=== PATIENT | female | born 1960 | race Caucasian/White ===

== ENCOUNTER 2016-10-12 14:55 | Emergency (ER) | payer MEDICAID ==
[~2016-10-12] VITALS: Ht 172.7 cm; Wt 71.7 kg
[~2016-10-12 14:55] MED LIST: ASPIRIN CHILDRE81 MG PO; ASPIRIN PO; DICLOFENAC 50MG50 MG PO; EC NAPROSYN500 MG PO; ESCITALOPRAM10 M1 PO; FLEXERIL10 MG PO; GABAPENTIN300 M1 PO; GABAPENTIN800 MG PO; LORTAB 5/500 501 TAB PO; LORTAB 7.5/3251 TAB PO; MEDROL 4MG. DOSE4 MG PO; NORCO 325 MG-51 TAB PO; OXYCODONE HYDRO1 TA1 PO; PEPCID20 MG PO; PRILOSEC40 MG PO; UNISOM25 MG PO; VALIUM 10MG TAB10 MG PO; VALIUM 5MG TABLE5 MG PO
--- NOTE | 2016-10-12 17:31 | Emergency Room Report ---
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 N Clinical Suspician of Infection? N Mental Status: 1 - Regular (Normal Baseline) Sepsis Risk:Possible Sepsis Risk Have you (or family members/close friends) recently traveled outside the [place]? N If Yes, where/when: Have you had exposure to infectious disease within the past month? N TB? Other? Specify: Patient complains of anxiety she states she is being weaned off her Valium by her family doctor and has anxiousness denies any pain denies any fevers or chills or nausea or vomiting states she has been on Valium since she's been 11 years old ALLERGIES Coded Allergies: No Known Allergies (11/23/15) Home Medications Active Scripts Cyclobenzaprine Hcl (Flexeril) 5 MG PO BID #60 TAB Prov: 09/06/16 Reported Medications ASPIRIN (Aspirin) 81 MG PO DAILY Diazepam (Valium 5MG) 5 MG PO QID Omeprazole (Prilosec 40mg Cap) 40 MG PO DAILY Escitalopram Oxalate 10 MG PO DAILY #30 Gabapentin (Gabapentin 800MG) 800 MG PO TID OXYCODONE HCL/ACETAMINOPHEN (Oxycodon-Acetaminophen 7.5-325) 1 TAB PO TID History Medical History General CAD? No Angina: Yes CA: No Hypertension? No Hyperlipidemia? No CHF? No DVT? No PE? No COPD? No Asthma? No Anemia? No GERD? Yes Gastric ulcers? No GI Bleed? No Hernia? No Thyroid Problems? No Hypothyroidism? No CVA? No Seizures? No Diabetes? No Insulin Dependent: No Insulin Pump: No Home FSBS? No Renal Insuffiency? No End Stage Renal Disease? No UTI? No Stones? No BPH? No GB Disease: No Nephritic Syndrome? No Asplenia? No Hepatitis? No Sickle Cell Disease? No Arthritis? Yes Migraines? No Cataracts? No Glaucoma? No MRSA? No HIV? No TB? No Anxiety? Yes Depression? Yes Cancer? No More? 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 Eyes: conjunctiva/corneas clear ENT: Mucous membranes moist. Neck: No jugular venous distention. Cardiac: regular rate and rhythm Lungs: Clear to auscultation bilaterally Abdomen: Nontender, Nondistended, positive bowel sounds, no rebound : No CVA tenderness Extremities: no edema Musculoskeletal: No chest wall tenderness Skin: No rashes or lesions to exposed skin. Neurologic: Alert. No gross focal deficits Psychiatric: Normal affect (Avery Goldberg MD) General Appearance normal appearance Respiratory Status No: respiratory distress. Cardiovascular normal exam Neurologic alert Medical Decision Making LABS/Meds/Orders Pt receiving controlled substance in ED? No Results/Orders Current Medication Orders Sig/Bro Start time Last Medication Dose Route Stop Time Status Admin Diazepam 5 MG .[NOW] 10/12 1745 CKDr PO Departure Departure Disposition DC Home or Self Care(routine) Clinical Impression Primary Impression: Anxiety Condition STABLE Referrals Comfort CARABALLO,Jorden Wiley (Family) Patient Instructions Anxiety Disorders Additional Instructions call family md for recheck ED Critical Care Critical Care No at 6125
[2016-10-12 18:43] VITALS: BP 142/69
== END 2016-10-12 18:45 | disposition home or self-care (01) ==
LOC: ER 14:55
DX: F41.8 Other specified anxiety disorders (principal)

== ENCOUNTER 2016-12-14 13:09 | Emergency (ER) | payer MEDICAID ==
[~2016-12-14] VITALS: Ht 172.7 cm; Wt 69.4 kg
--- OUTSIDE RECORDS SUMMARY | 2016-12-14 13:22 | External Medical Summary Rpt ---
Author Author , Organization [employer] Address Unknown Phone Unavailable Care Team Providers Care Cafeteria Assistant Name Role Phone ALLRAN MACARIO, ALLRAN Unavailable Unavailable JR MACARIO BELEAH BORA, BEINEKE Unavailable Unavailable BORA BESSON, BESSON Unavailable Unavailable BESSON GI, BESSON Unavailable Unavailable [facility] Unavailable [facility]available [facility], [facility] SILVA ALL, SILVA ALL Unavailable Unavailable [facility] Unavailable Unavailable SERVICE, [facility] Unavailable Unavailable SERVICE, [facility] Unavailable Unavailable [facility]TH[facility]ED[facility], [facility] Unavailable Unavailable [facility], [facility] Unavailable [facility]available [facility], [facility] & Unavailable Unavailable DUBILIER, [facility], [facility] SEBASTIAN ANTHONY, Unavailable Unavailable SEBASTIAN ANTHONY SEBASTIAN ANTHONY, Unavailable Unavailable SEBASTIAN ANTHONY [facility] Unavailable [place]available [place], [facility] [place] [facility] Unavailable Unavailable LLC, [facility] FRYMAN EUG, FRYMAN Unavailable Unavailable EUG JR MUKHERJEE FULLER, Unavailable Unavailable JR JR MATTI MUKHERJEE, Unavailable Unavailable JR MATTI MUKHERJEE COMFORT, COMFORT Unavailable Unavailable COMFORT RICARDO, COMFORT Unavailable Unavailable RICARDO COMFORT RICARDO, COMFORT Unavailable Unavailable RICARDO [facility], [facility] LEVY, LEVY Unavailable Unavailable LEVY RICARDO, LEVY Unavailable Unavailable RICARDO PREETHI RHO, PREETHI Unavailable Unavailable RHO [facility] Unavailable Unavailable INC, [facility] Unavailable Unavailable HOSPITAL P, [facility], Unavailable Unavailable [facility] CRISOSTOMO, CRISOSTOMO Unavailable Unavailable CRISOSTOMO TRA, CRISOSTOMO TRA Unavailable Unavailable WILBERTO LADD Unavailable Unavailable [facility] Un[facility] Unavailable [facility], [facility] Un[facility], [facility] Un[facility], [facility] DELIO DWI, DELIO DWI Unavailable Unavailable DELIO JR DWI, DELIO Unavailable Unavailable JR DWI ALMONTE OUSMANE, ALMONTE Unavailable Unavailable OUSMANE DOROTHY KIM, Unavailable Unavailable DOROTHY ANN [facility] Unavailable Unavailable SERVICES, [facility] MARIELLA JACEK, MARIELLA Unavailable Unavailable JACEK FINK JUS, Unavailable Unavailable FINK JUS WALL DANNA, WALL DANNA Unavailable Unavailable [address] Unavailable Unavailable MRI [facility], [address] MRI [facility] Unavailable Unavailable [facility], [facility] Unavailable Unavailable CONSULTANTS, [facility], [facility], P[facility] Unavailable Unavailable LABS, LLC [facility], Unavailable Unavailable PLL[facility], [facility] Unavailable Unavailable LAB, [facility]Y [facility] LAB MEADE LORA, MEADE LORA Unavailable Unavailable MEADE LORA, MEADE LORA Unavailable Unavailable PETTEY JAM, PETTEY Unavailable Unavailable JAM PETTEY JAM, PETTEY Unavailable Unavailable JAM CHI PRASHANT, CHI Unavailable Unavailable PRASHANT STONE RANJITH, STONE RANJITH Unavailable Unavailable [facility] Unavailable Unavailable [facility], [facility] Unavailable Unavailable [facility], [facility] SOTINGEANU BORA, Unavailable Unavailable SOTINGEANU BORA CASSIDY CHR, CASSIDY Unavailable Unavailable CHR FINK DON, Unavailable Unavailable FINK DON FINK DON, Unavailable Unavailable FINK DON ROBYN ROMEO, ROBYN Unavailable Unavailable [facility], Unavailable Unavailable [facility] NATANAEL ALEXIS, NATANAEL Unavailable Unavailable VANESA [email or web address] # Unavailable Unavailable [id number], [email or web address] # [id number] Purpose Continuity of Care Document - 08-17-2010 through 2016 Problems Code Diagnosis DOS Provider Status [id number] OTHER LONG 11-04-2016 [facility] CURRENT INC DRUG THERAPY [id number] UNS TEAR 09-09-2016 JULIANE UNS ANESTHESIA [facility] PS CURR INJ LT KNEE INIT ENC [id number] OTH TEAR 09-09-2016 [facility] LAT [facility] COMMUNTIY CURRNT INJ HOSPITA LT KNEE INIT ENC Z720 TOBACCO USE 09-09-2016 [facility] K219 GASTRO-ESOP 09-06-2016 [facility] H [facility] DISEASE INC WITHOUT ESOPHAGITIS M1612 UNILATERAL 09-06-2016 [place] [facility] OSTEOARTHRI IMAGING ASS TIS LEFT HIP [id number] PAIN IN 09-06-2016 [facility] [id number] PAIN IN 09-06-2016 [facility] [id number] PAIN IN 09-06-2016 [facility] LEFT KNEE PHYSICIANS, [facility] M461 SACROILIITI 09-06-2016 [place] S NOT MEDICAL ELSEWHERE IMAGING ASS CLASSIFIED 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-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 M5442 LUMBAGO 09-06-2016 [facility] WITH [facility]YSICIANS, [facility] LEFT SIDE M545 LOW BACK 09-06-2016 [place] PAIN MEDICAL IMAGING ASS Q39407 PAIN IN 09-06-2016 [facility] RIGHT LEG AMBULANCE SERVICE M8588 OTH SPEC 09-06-2016 [place] D/O BONE MEDICAL DENSITY IMAGING ASS STRUCTURE OT SITE R200 ANESTHESIA 09-06-2016 [facility] OF SKIN AMBULANCE SERVICE [id number] UNS INJURY 09-06-2016 [place] LT LOWER MEDICAL LEG INITIAL IMAGING ASS ENCOUNTER J449 CHRONIC 09-04-2016 [place] OBSTRUCTIVE MEDICAL PULMONARY IMAGING ASS DISEASE UNS R911 SOLITARY 09-04-2016 [place] PULMONARY MEDICAL NODULE IMAGING ASS [id number] ENCOUNTER 09-04-[address] [facility] P AL CARIOVASCUL AR EXAM D64038 ENCOUNTER 09-04-[address] [facility] P AL LABORATORY EXAM [id number] BUCKET-HAND 08-27-2016 [facility] TEAR LAT [place] [facility]US [facility] CURR LT KNEE INIT R296 REPEATED 06-19-2016 [facility] [id number] OTH TEAR 05-02-2016 [facility] LAT [facility] CURRNT INJ INC LT KNEE SBSQT ENC I87208 DERANG POST 03-25-2016 [facility] MENISC OLD HOSPITA TEAR/INJ LT KNEE [id number] DERANG OTH 03-25-2016 [facility] LAT MENISC COMMUNTIY D/T OLD HOSPITA TEAR/INJ LT KNEE Q686 DISCOID 03-25-2016 [facility] S PSC [id number] OTH TEAR 03-25-2016 [facility] MENISCUS S PSC CURR INJ LT KNEE INIT ENC Q30380 PAIN IN 03-20-2016 [facility] UNSPECIFIED [facility] P R197 DIARRHEA 03-20-2016 [facility] UNSPECIFIED MEM HOSP INC G88239 ENCOUNTER 03-20-2016 [facility] P AL RESPIRATORY EXAM [id number] OTH TEAR 03-05-2016 [facility] MENISCUS S PSC CURR INJ LT KNEE SBSQT ENC M1990 UNSPECIFIED 02-24-2016 [facility] OSTEOARTHRI GROUP TIS UNSPECIFIED SITE M5416 RADICULOPAT 02-24-2016 [facility] HY LUMBAR PHYSICIANS REGION GROUP [id number] FRACTURE 12-04-2015 [facility] ONE RIB UNS PHYSICIANS SIDE GROUP INITIAL ENC CLOSED FX M2392 UNSPECIFIED 11-23-2015 [facility], DERANGEMENT PLLC OF LEFT KNEE R0781 PLEURODYNIA 11-23-2015 [place] [facility] [id number] CONTUSION 11-23-2015 [facility] RT FRONT PHYSICIANS, WALL THORAX PLLC INITIAL ENCOUNTER [id number] MULTIPLE FX 11-23-2015 [place] RIBS RT MEDICAL SIDE INIT IMAGING ASS ENC CLOS FRACTURE M961 POSTLAMINEC 11-21-2015 [facility] NEC EQUIPME M5135 OT 11-18-[address] [facility] RAL DISC LLC DEGEN THORACOLUMB AR RGN M5136 OT 11-18-[address] [facility] RAL DISC LLC DEGEN LUMBAR REGION M5137 OT 11-18-[address] MRI RAL DISC LLC DEGEN LUMBOSACRAL REGION G5601 CARPAL 07-10-2015 [place] TUNNEL ANESTHESIA SYNDROME GROUP PS RIGHT UPPER LIMB G5602 CARPAL 07-10-2015 [facility] [place] [facility] SYNDROME S PLC LEFT UPPER LIMB I10 ESSENTIAL 07-10-2015 [facility] PRIMARY COMMUNTI[facility] HYPERTENSIO HOSPITA N M654 RADIAL 07-10-2015 [facility] STYLOID COMMUNTIY TENOSYNOVIT HOSPITA IS DE QUERVAIN G5600 CARPAL 06-14-2015 [facility] TUNNEL PHYSICIANS SYNDROME GROUP UNSPECIFIED UPPER LIMB R05 COUGH 06-14-2015 [place] [facility] F44043 ENCOUNTER 06-14-2015 [facility] FOR OTHER [facility] P AL EXAMINATION 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 CERV REGION Q51909 PAIN IN 05-16-2015 [facility] [place] LEFT WRIST ORTHOPAEDIC S PLC M79A12 NONTRAUMATI 05-06-2015 [facility] C MEM HOSP COMPARTMENT INC SYNDROME LT UP EXTREM 76583 HEMANGIOMA 04-03-2015 [facility] [place] OF SKIN AND ORTHOPAEDIC S PLC SUBCUTANEOU S TISSUE 76977 OTHER 04-03-2015 [place] SYMPTOMS ANESTHESIA REFERABLE GROUP PS TO FOREARM JOINT 90576 RADIAL 04-03-2015 [facility] [place] STYLOID ORTHOPAEDIC TENOSYNOVIT S PLC IS 7822 LOCALIZED 04-03-2015 [facility], [facility]PERF[facility]IAL LLC SWELLING [place]MP 46959 NEOPLASMS 03-28-2015 [facility] UNSPECIFIED COMMUNTIY NATURE OT HOSPITA SPECIFIED SITES V7283 OTHER 03-28-2015 [facility] SPECIFIED COMMUNTIY PRE-OPERATI HOSPITA VE EXAMINATION 3540 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 [facility] [place] TUN[place]EL [facility]IC SYNDROME S PLC 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 MEDICAL PELVIC IMAGING ASS REGION AND THIGH 67223 CONTUSION 02-03-2015 [facility] [place] PHYSICIANS, [facility] 46998 POSTLAMINEC 01-16-2015 [facility] SYNDROME LUMBAR REGION 43548 PAIN IN 01-07-2015 [facility] JOINT, SITE PHYSICIANS GROUP UNSPECIFIED 7242 LUMBAGO 05-29-2014 [facility] PHYSICIANS GROUP 05605 PRIMARY LOC 04-25-2014 [facility] OSTEOARTHRO SIS PELVIC REGION&THIG H 7213 LUMBOSACRAL 04-25-2014 [facility] SPONDYLOSIS WITHOUT MYELOPATHY 06625 ABDOMINAL 04-11-2014 [facility] PAIN RIGHT PHYSICIANS LOWER GROUP QUADRANT 44507 ABDOMINAL 04-04-2014 [facility] PAIN, MEM HOSP UNSPECIFIED INC SITE 43612 ESOPHAGEAL 03-12-2014 ME[facility] L[facility] REFLUX 5718 OTHER 03-12-2014 [facility] CHRONIC NONALCOHOLI C LIVER DISEASE 7906 OTHER 03-12-2014 [facility] ABNORMAL BLOOD CHEMISTRY 99497 OTHER 02-20-2014 [facility] SYMPTOMS PHYSICIANS INVOLVING GROUP URINARY SYSTEM 86681 PAIN IN 12-15-2013 [facility] JOINT, HAND MEM HOSP INC 34041 OSTEOARTHRO 12-12-2013 COM[facility] SILVA S UNSPEC WHETHER GEN/LOC UNSPEC SITE 9592 INJURY 12-12-2013 COMFORT RICARDO OTHER&UNSPE CIFIED SHOULDER&UP PER ARM 7177 CHONDROMALA 10-26-2013 PETTEY JAM TOBIAS OF [place] 18093 PAIN IN 10-26-2013 [facility] JOINT, MEM HOSP LOWER LEG INC 7282 MUSCULAR 10-26-2013 PETTEY JAM WASTING AND DISUSE ATROPHY NEC 7295 PAIN IN 10-26-2013 [facility] SOFT ANTHONY TISSUES OF LIMB E8889 UNSPECIFIED 10-26-2013 [facility] FALL ANTHONY V1551 PERSONAL 10-26-2013 VALDEMAR ALLEN HISTORY OF TRAUMATIC FRACTURE 7948 NONSPECIFIC 05-08-2013 [facility] ABNORMAL [facility] RESULTS INC LIVR FUNCTION STUDY 7871 HEARTBURN 03-27-2013 [facility] 50707 CLOSED 04-27-2012 [facility] FRACTURE OF DON UNSPECIFIED PART OF RADIUS 7905 OTHER 04-25-2012 [facility] NONSPECIFIC ABNORMAL SERUM ENZYME LEVELS 48343 OTHER 11-17-2011 PATHOLOGY & CHRONIC CYTOLOGY HEPATITIS LAB 40745 THYROTOX 08-31-2011 [facility] W/[facility] GOITER/OTH INC CAUSE W/O CRISIS 67596 DIARRHEA 04-17-2011 [place] [facility] 05429 ABDOMINAL 04-13-2011 [place] [facility] PA[facility], SERV EPIGASTRIC FOUNDATIO 56468 REFLUX 03-23-2011 [place] [facility] ESOPHAGITIS SERV FOUNDATIO 48930 OTHER SPEC 03-23-2011 [facility] GASTRITIS ANGELIA & WITHOUT DUBILIER MENTION HEMORRHAGE 5379 UNSPECIFIED 03-23-2011 [place] [facility] DISORDER SERV OF STOMACH FOUNDATIO AND DUODENUM 7831 ABNORMAL 03-10-2011 [facility] INC 44554 CHEST PAIN 08-17-2010 [facility]NSPECIF[facility]Y SERVICES 46861 OTHER CHEST 08-17-2010 [facility] P F41.9 ANXIETY DISORDER, UNSPECIFIED Medications Na ND Rx Da Fi Fi Am Da Di Ph RX Ph St me C No te ll ll ou ys ag ar # ys at rm s nt no ma ic us Or Da si cy ia de te s n re d DI 00 04 05 30 30 00 EA Ac AZ 17 -1 -[address] ti EP 23 8- 2- 00 00 SI ve AM 92 20 20 48 DE 5 67 17 17 39 0 70 PH MG AR MA TA CY BL ET OF CY NT HI AN A IN C ES 65 04 05 30 30 00 EA Ac CI 86 -1 -[address] ti TA 20 4- 2- 00 00 SI ve LO 37 20 20 48 DE HI 50 17 17 36 AM 1 82 PH AR 20 MA CY MG OF TA CY BL NT ET HI AN A IN C GA 16 04 05 90 30 00 EA Ac BA 71 -1 -[address] ti PE 40 4- 2- 00 00 SI ve NT 33 20 20 48 DE IN 20 17 17 36 2 83 PH 80 AR 0 MA MG CY TA OF BL CY ET NT HI AN A IN C OM 62 04 05 30 30 00 EA Ac EP 17 -1 -[address] ti RA 50 4- 2- 00 00 SI ve ZO 13 20 20 48 DE LE 64 17 [address] AR MA 40 CY MG OF CY CA NT PS HI UL AN E A IN C CY 00 04 05 60 30 00 EA Ac CL 37 -1 -[address] ti OB 80 0- 5- 00 00 SI ve EN 75 20 20 48 DE ZA 11 17 17 31 HI 0 35 PH IN AR E MA 10 CY MG OF CY TA NT BL HI ET AN A IN C DI 00 03 04 60 30 00 EA Ac AZ 17 -1 -[address] ti EP 23 9- 4- 00 00 SI ve AM 92 20 20 48 DE 5 67 17 17 02 0 81 PH MG AR MA TA CY BL ET OF CY NT HI AN A IN C ES 65 03 04 30 30 00 EA Ac CI 86 -1 -[address] ti TA 20 5- 7- 00 00 SI ve LO 37 20 20 47 DE HI 50 17 17 97 AM 1 40 PH AR 20 MA CY MG OF TA CY BL NT ET HI AN A IN C GA 16 03 04 90 30 00 EA Ac BA 71 -1 -[address] ti PE 40 5- 7- 00 00 SI ve NT 33 20 20 47 DE IN 20 17 17 97 2 41 PH 80 AR 0 MA MG CY TA OF BL CY ET NT HI AN A IN C OM 62 03 04 30 30 00 EA Ac EP 17 -1 -[address] ti RA 50 5- 7- 00 00 SI ve ZO 13 20 20 47 DE LE 64 17 [address] AR MA 40 CY MG OF CY CA NT PS HI UL AN E A IN C CY 00 03 03 60 30 00 EA Ac CL 37 -0 -[address] ti OB 80 1- 4- 00 00 SI ve EN 75 20 20 47 DE ZA 11 17 17 80 HI 0 32 PH IN AR E MA 10 CY MG OF CY TA NT BL HI ET AN A IN C DI 00 02 03 90 30 00 EA Ac AZ 17 -1 -[address] ti EP 23 7- 7- 00 00 SI ve AM 92 20 20 47 DE 5 67 17 17 64 0 33 PH MG AR MA TA CY BL ET OF CY NT HI AN A IN C GA 16 02 03 90 30 00 EA Ac BA 71 -1 -[address] ti PE 40 3- 0- 00 00 SI ve NT 33 20 20 47 DE IN 20 17 17 58 2 79 PH 80 AR 0 MA MG CY TA OF BL CY ET NT HI AN A IN C HY 00 02 03 [address] 60 -1 -[address] ti OC 33 1- 0- 00 00 SI ve OD 89 20 20 47 DE ON 03 17 17 53 -A 2 53 PH CE AR TA MA WV CY NO PH OF EN CY NT 5- HI 32 AN 5 A IN C ES 65 02 03 30 30 00 EA Ac CI 86 -1 -[address] ti TA 20 4- 0- 00 00 SI ve LO 37 20 20 47 DE HI 50 17 17 61 AM 1 26 PH AR 20 MA CY MG OF TA CY BL NT ET HI AN A IN C OM 62 02 03 30 30 00 EA Ac EP 17 -1 -[address] ti RA 50 3- 0- 00 00 SI ve ZO 13 20 20 47 DE LE 64 17 [address] AR MA 40 CY MG OF CY CA NT PS HI UL AN E A IN C CY 00 02 03 60 30 00 EA Ac CL 37 -0 -[address] ti OB 80 6- 3- 00 00 SI ve EN 75 20 20 47 DE ZA 11 17 17 49 HI 0 45 PH IN AR E MA 10 CY MG OF CY TA NT BL HI ET AN A IN C GA 16 01 02 90 30 00 EA Ac BA 71 -1 -[address] ti PE 40 2- 7- 00 00 SI ve NT 33 20 20 46 DE IN 20 17 17 87 2 02 PH 80 AR 0 MA MG CY TA OF BL CY ET NT HI AN A IN C OX 65 01 02 12 30 00 EA Ac YC 16 -1 -[address] ti OD 20 2- 7- 00 00 SI ve ON 20 20 20 0 47 DE -A 75 17 17 19 CE 0 73 PH TA AR WV MA NO CY PH EN OF CY 7. NT 5- HI 32 AN 5 A IN C ES 65 01 02 30 30 00 EA Ac CI 86 -1 -[address] ti TA 20 2- 7- 00 00 SI ve LO 37 20 20 46 DE HI 50 17 17 87 AM 1 03 PH AR 20 MA CY MG OF TA CY BL NT ET HI AN A IN C DI 00 01 02 90 30 00 EA Ac AZ 17 -1 -[address] ti EP 23 7- 0- 00 00 SI ve AM 92 20 20 47 DE 5 67 17 17 26 0 86 PH MG AR MA TA CY BL ET OF CY NT HI AN A IN C OM 62 01 02 30 30 00 EA Ac EP 17 -0 -[address] ti RA 50 8- 0- 00 00 SI ve ZO 13 20 20 46 DE LE 64 17 [address] AR MA 40 CY MG OF CY CA NT PS HI UL AN E A IN C DI 00 12 01 12 30 00 EA Ac AZ 17 -1 -[address] ti EP 23 6- 0- 00 00 SI ve AM 92 20 20 0 46 DE 5 67 16 17 54 0 33 PH MG AR MA TA CY BL ET OF CY NT HI AN A IN C OM 62 12 01 30 30 00 EA Ac EP 17 -1 -[address] ti RA 50 2- 3- 00 00 SI ve ZO 13 20 20 46 DE LE 64 16 [address] AR MA 40 CY MG OF CY CA NT PS HI UL AN E A IN C OX 65 12 01 12 30 00 EA Ac YC 16 -1 -[address] ti OD 20 3- 3- 00 00 SI ve ON 20 20 20 0 46 DE -A 75 16 17 87 CE 0 07 PH TA AR WV MA NO CY PH EN OF CY 7. NT 5- HI 32 AN 5 A IN C ES 65 12 01 30 30 00 EA Ac CI 86 -1 -[address] ti TA 20 3- 3- 00 00 SI ve LO 37 20 20 46 DE HI 50 16 17 87 AM 1 03 PH AR 20 MA CY MG OF TA CY BL NT ET HI AN A IN C GA 16 12 01 90 30 00 EA Ac BA 71 -1 -[address] ti PE 40 3- 3- 00 00 SI ve NT 33 20 20 46 DE IN 20 16 17 87 2 02 PH 80 AR 0 MA MG CY TA OF BL CY ET NT HI AN A IN C DI 00 08 10 4 [address] Ac AZ 17 -0 -[address] 51 EP ti EP 23 3- 8- 00 SI 73 HE ve AM 92 20 20 DE NS 77 11 11 10 0 PH DO AR N MG MA R CY TA BL OF ET CY NT HI AN A NE 00 09 10 2 30 30 EA 24 PE Ac XI 18 -2 -[address] 18 NA ti UM 65 0- 8- 00 SI 75 ve 04 [address] 03 11 11 IS 1 PH R 40 AR MA MG CY CA OF PS UL CY E NT HI AN A DI 00 08 09 4 [address] Ac AZ 17 -0 -[address] 51 EP ti EP 23 3- 9- 00 SI 73 HE ve AM 92 20 20 DE NS 77 11 11 10 0 PH DO AR N MG MA R CY TA BL OF ET CY NT HI AN A NE 00 09 09 2 30 30 EA 24 PE Ac XI 18 -2 -[address] 18 NA ti UM 65 0- 0- 00 SI 75 ve 04 [address] 03 11 11 IS 1 PH R 40 AR MA MG CY CA OF PS UL CY E NT HI AN A DI 00 08 08 4 [address] Ac AZ 17 -0 -[address] 51 EP ti EP 23 3- 0- 00 SI 73 HE ve AM 92 20 20 DE NS 77 11 11 10 0 PH DO AR N MG MA R CY TA BL OF ET CY NT HI AN A HI 37 08 08 5 60 30 WA 88 PE Ac IL 00 -0 -2 .0 L- 18 NA ti OS 00 2- 9- 00 MA 47 ve EC 45 20 20 RT 2 TRACE 50 11 11 IS OT 4 PH R C AR 20 MA .6 CY # MG 10 TA 05 BL 91 ET DI 00 08 08 0 [address] Ac AZ 17 -0 -[address] 51 EP ti EP 23 3- 3- 00 SI 73 HE ve AM 92 20 20 DE NS 77 11 11 10 0 PH DO AR N MG MA R CY TA BL OF ET CY NT HI AN A HI 37 08 08 5 60 30 WA 88 PE Ac IL 00 -0 -0 .0 L- 18 NA ti OS 00 2- 2- 00 MA 47 ve EC 45 20 20 RT 2 TRACE 50 11 11 IS OT 4 PH R C AR 20 MA .6 CY # MG 10 TA 05 BL 91 ET HI 37 07 07 5 30 30 CL 24 PE Ac IL 00 -1 -1 .0 IN 19 NA ti OS 00 1- 1- 00 IC 17 ve EC 45 20 20 TRACE 50 11 11 PH IS OT 4 AR R C MA 20 CY .6 LL MG C TA BL ET DI 00 04 07 3 [address] Ac AZ 17 -0 -[address] 00 EP ti EP 23 6- 4- 00 SI 66 HE ve AM 92 20 20 DE NS 77 11 11 10 0 PH DO AR N MG MA R CY TA BL OF ET CY NT HI AN A DI 00 04 06 3 [address] Ac AZ 17 -0 -[address] 00 EP ti EP 23 6- 4- 00 SI 66 HE ve AM 92 20 20 DE NS 77 11 11 10 0 PH DO AR N MG MA R CY TA BL OF ET CY NT HI AN A RA 53 05 05 3 [address] Ac NI 74 -2 -[address] 68 EP ti TI 60 5- 5- 00 SI 01 HE ve DI 25 20 20 DE NS NE 31 11 11 0 PH DO 15 AR N 0 MA R MG CY TA OF BL ET CY NT HI AN A HI 00 05 05 0 [address] Ac OM 78 -2 -[address] 62 EP ti ET 11 0- 0- 00 SI 04 HE ve AMARAL 83 20 20 DE NS ZI 01 11 11 NE 0 PH DO AR N 25 MA R CY MG OF TA BL CY ET NT HI AN A HI 37 04 05 5 [address] Ac IL 00 -0 -[address] 00 EP ti OS 00 6- 6- 00 SI 65 HE ve EC 45 20 20 DE NS 50 11 11 OT 2 PH DO C AR N 20 MA R .6 CY MG OF TA CY BL NT ET HI AN A DI 00 04 05 3 [address] Ac AZ 17 -0 -[address] 00 EP ti EP 23 6- 6- 00 SI 66 HE ve AM 92 20 20 DE NS 77 11 11 10 0 PH DO AR N MG MA R CY TA BL OF ET CY NT HI AN A HI 00 05 05 0 [address] Ac OM 78 -0 -[address] 43 EP ti ET 11 6- 6- SI 02 HE ve AMARAL 83 20 20 DE NS ZI 01 11 11 NE 0 PH DO AR N 25 MA R CY MG OF TA BL CY ET NT HI AN A AM 00 04 04 0 20 5 EA 22 No Ac OX 78 -2 -[address] 25 t ti IC 12 5- 5 00 SI 33 Av ve IL 61 20 20 DE ai LI 30 11 11 la N 5 PH bl 50 AR e 0 MA MG CY CA OF PS UL CY E NT HI AN A AM 00 04 04 0 40 10 EA 22 No Ac OX 78 -1 -[address] 08 t ti IC 12 2- 2- 00 SI 93 Av ve IL 61 20 20 DE ai LI 30 11 11 la N 5 PH bl 50 AR e 0 MA MG CY CA OF PS UL CY E NT HI AN A HI 37 04 04 5 [address] Ac IL 00 -0 -[address] 00 EP ti OS 00 6- 6 SI 65 HE ve EC 45 20 20 DE NS 50 11 11 OT 2 PH DO C AR N 20 MA R .6 CY MG OF TA CY BL NT ET HI AN A DI 00 04 04 3 [address] Ac AZ 17 -0 -[address] 00 EP ti EP 23 6- 6- 00 SI 66 HE ve AM 92 20 20 DE NS 77 11 11 10 0 PH DO AR N MG MA R CY TA BL OF ET CY NT HI AN A PE 00 02 02 0 40 10 WA 71 No Ac NI 78 -1 -1 .0 L- 06 t ti CI 11 4- 4- 00 MA 86 Av ve LL 65 20 20 RT 4 ai IN 50 11 11 la 1 PH bl VK AR e MA 50 CY 0 # MG 10 TA 05 BL 91 ET Procedures Procedure DOS Code Location Performer Comment DRUG TEST 77672 [facility] QUAL DIR INC INC OPTICAL OBS PER DAY DRUG TEST 56887 [facility] MEM [facility]OSP QUAL DIR INC INC OPTICAL OBS PER DAY INJECTION J1100 [facility] 7 N N DEXAMETHO COMMUNTIY COMMUNTIY SONE HOSPITA HOSPITA SODIUM PHOSPHATE 1 MG INJECTION J2001 [facility] 7 N N LIDOCAINE COMMUNTIY COMMUNTIY HCL HOSPITA HOSPITA INTRAVENO US INFUS 10 MG RINGERS J7120 [facility] LACTATE 7 N N INFUSION COMMUNTIY COMMUNTIY UP TO HOSPITA HOSPITA 1000 CC INJECTION J0690 [facility] 7 N N CEFAZOLIN COMMUNTIY COMMUNTIY SODIUM HOSPITA HOSPITA 500 MG INJECTION J2250 [facility] 7 N N MIDAZOLAM COMMUNTIY COMMUNTIY HCL PER HOSPITA HOSPITA 1 MG INJECTION J2704 [facility] PROPOFOL 7 N N 10 MG COMMUNTIY COMMUNTIY HOSPITA HOSPITA INJECTION J3010 [facility] FENTANYL 7 N N [place] COMMUNTIY COMMUNTIY 0.1 MG HOSPITA HOSPITA ANES 75481 JULIANE LEVY OPEN/SURG 7 ANESTHESI A GROUP ARTHROSCO PS PIC PROC KNEE JOINT NOS ARTHRS 36722 [facility] KNE SURG 7 N N W/MENISCE COMMUNTIY COMMUNTIY CTOMY HOSPITA HOSPITA MED/LAT W/SHVG INJECTION J1885 [facility] 7 N N KETOROLAC COMMUNTIY COMMUNTIY HOSPITA HOSPITA TROMETHAM INE PER 15 MG BLOOD 92512 [facility] COUNT 7 [facility] COMPLETE INC INC AUTO&AUTO DIFRNTL WBC GROUND A0425 [facility] PER SERVICE SERVICE STATUTE MILE AMBULANCE [id number] [facility] 7 AMBULANCE AMBULANCE BLS SERVICE SERVICE EMERGENCY TRANSPORT COLLECTIO 31667 [facility]UR[facility] N VENOUS 7 [facility] BLOOD INC INC VENIPUNCT URE THER 97695 [facility] TURNER PROPH/DX 7 [facility] NJX IV INC INC PUSH SINGLE/1S T SBST/DRUG CT LUMBAR 78325 [facility] SPINE 7 [facility] W/O INC INC CONTRAST MATERIAL RADEX HIP 67772 [facility] 7 [facility] [place] INC INC L WITH PELVIS 2-3 VIEWS RADIOLOGI 41368 [facility] C 7 [facility] EXAMINATI INC INC ON KNEE 3 VIEWS UNCLASSIF J3490 [facility] JOHNNY IED DRUGS 7 [facility] INC INC COMPREHEN 41388 J[facility]NNY [facility]Y SIVE 7 [facility] METABOLIC INC INC PANEL RADIOLOGI 72891 JOHNNY Walsh EXAM 7 [facility] CHEST 2 INC INC VIEWS FRONTAL&L ATERAL ECG 50545 JOHNNYMONY TURNER ROUTINE 7 [facility] ECG INC INC W/LEAST 12 LDS TRCG ONLY W/O I&R COLLECTIO 63137 JOHNNY TURNER N VENOUS 7 [facility] BLOOD INC INC VENIPUNCT URE ECG 95386 JOHNNY HURTADO ROUTINE 7 [facility] W/LEAST P 12 LDS I&R ONLY BASIC 73604 JOHNNY TURNER METABOLIC 7 [facility] PANEL INC INC CALCIUM TOTAL DRUG TEST 92423 JOHNNY TURNER PRSMV 7 [facility] QUAL DIR INC INC OPTICAL OBS PER DAY DRUG 01770 JOHNNY TURNER SCREENING 7 [facility] OPIOIDS INC INC & OPIATE ANALOGS 5/MORE MRI ANY 590[address] JUSTIN CRISOSTOMO JT LOWER 6 EXTREM ORTHOPAED W/O ICS PSC CONTRAST MATRL DRUG TST G0477 JOHNNY TURNER PRESUMP;C 6 [facility] PBL BEING INC INC READ DC OPT OBV ONLY RADIOLOGI 39731 JUSTIN Walsh 6 EXAMINATI ORTHOPAED ON KNEE 3 ICS PSC VIEWS CANE E0105 KEON HERBERT QUAD/3-HI 6 HOME HOME DIALLO ALL MEDICAL MEDICAL MATL EQUIPME EQUIPME ADJUSTBL/ FIX W/TIPS DRUG TST G0477 JOHNNY TURNER PRESUMP;C 6 [facility] BEING INC INC READ DC OPT OBV ONLY DRUG TST G0477 JOHNNY TURNER PRESUMP;C 6 [facility] PBL BEING INC INC READ DC OPT OBV ONLY THERAPEUT 99137 JOHNNY TURNER IC PX 1/> 6 [facility] AREAS INC INC EACH 15 MIN EXERCISES THERAPEUT 96714 JOHNNY JOHNNY IC PX 1/> 6 [facility] AREAS INC INC EACH 15 MIN EXERCISES PHYSICAL 52806 JOHNNY TURNER THERAPY 6 [facility] EVALUATIO INC INC N ANES 38370 JULIANE LEVY OPEN/SURG 6 ANESTHESI RICARDO A GROUP ARTHROSCO PS PIC PROC KNEE JOINT NOS ARTHRS 50568 [facility] KNEE 6 N N W/MENISCE COMMUNTIY COMMUNTIY CTOMY HOSPITA HOSPITA MED&LAT W/SHAVING INJECTION J2270 [facility] MORPHINE 6 N N SULFATE COMMUNTIY COMMUNTIY UP TO 10 HOSPITA HOSPITA MG INJECTION J0690 [facility] 6 N N CEFAZOLIN COMMUNTIY COMMUNTIY SODIUM HOSPITA HOSPITA 500 MG INJECTION J2704 [facility] PROPOFOL 6 N N 10 MG COMMUNTIY COMMUNTIY HOSPITA HOSPITA INJECTION J3010 [facility] FENTANYL 6 N N CITRATE COMMUNTIY COMMUNTIY 0.1 MG HOSPITA HOSPITA INJECTION J1100 [facility] 6 N N DEXAMETHO COMMUNTIY COMMUNTIY SONE HOSPITA HOSPITA SODIUM PHOSPHATE 1 MG RINGERS J7120 [facility] LACTATE 6 N N INFUSION COMMUNTIY COMMUNTIY UP TO HOSPITA HOSPITA 1000 CC ECG 78815 JOHNNY HURTADO ROUTINE [address] [facility] W/LEAST P 12 LDS I&R ONLY BASIC 14908 JOHNNY TURNER METABOLIC 6 [facility] PANEL INC INC CALCIUM TOTAL BLOOD 08296 JOHNNY TURNER COUNT 6 [facility] COMPLETE INC INC AUTO&AUTO DIFRNTL WBC ECG 20231 JOHNNY TURNER ROUTINE 6 [facility] HOSP ECG INC INC W/LEAST 12 LDS TRCG ONLY W/O I&R COLLECTIO 46091 JOHNNY TURNER N VENOUS 6 [facility]OSP BLOOD INC INC VENIPUNCT URE RADIOLOGI 17631 JOHNNY TURNER C EXAM 6 [facility] CHEST 2 INC INC VIEWS FRONTAL&L ATERAL RADIOLOGI 08995 [place] SHIRA ALL C 6 MEDICAL EXAMINATI IMAGING ON CHEST ASS SINGLE VIEW FRONTAL DRUG TST G0477 JOHNNY TURNER PRESUMP;C 6 [facility] PBL BEING INC INC READ DC OPT OBV ONLY DRUG TST G0477 JOHNNY TURNER PRESUMP;C 6 [facility] PBL BEING INC INC READ DC OPT OBV ONLY ARTHROCEN 58672 JUSTIN CRISOSTOMO TESIS 6 ASPIR&/IN ORTHOPAED J MAJOR ICS PSC JT/BURSA W/O US MRI ANY 75137 JUSTIN CRISOSTOMO TRA JT LOWER 6 EXTREM ORTHOPAED W/O ICS PSC CONTRAST MATRL RADIOLOGI 92411 JUSTIN Walsh 6 EXAMINATI ORTHOPAED ON KNEE ICS PSC 1/2 VIEWS RADIOLOGI 58233 [place] SHIRA ALL C 6 MEDICAL EXAMINATI IMAGING ON KNEE ASS 1/2 VIEWS RADEX 93495 [place] SHIRA ALL RIBS UNI 6 MEDICAL W/POSTERO IMAGING ANT CH ASS MINIMUM 3 VIEWS LUMB L0642 KEON NIXRELL ORTHOS 6 HOME [facility] RIGD EQUIPME EQUIPME ANT POST PANELS MRI 02654 SHARON HERRERA SPINAL [address] CANAL MRI [facility] LUMBAR W/O CONTRAST MATERIAL DRUG TST G0477 JOHNNY TURNER PRESUMP;C 6 [facility] PBL BEING INC INC READ DC OPT OBV ONLY RADEX 82020 ORTHOPEDI SANTOYO SPINE 6 C VANESA LUMBOSACR CONSULTAN AL 2/3 TS VIEWS DRUG TST G0477 JOHNNY TURNER PRESUMP;C 6 [facility] PBL BEING INC INC READ DC OPT OBV ONLY INCISION 90281 [facility] TRA EXTENSOR 5 [place] ORTHOPAED SHEATH ICS PLC WRIST NEUROPLAS 42798 [facility] CRIS[facility] TRA TY 5 [place] &/TRANSPO ORTHOPAED S MEDIAN ICS PLC NRV CARPAL TUNNE INJECTION J0690 [place] [facility]ENTIAL 5 N TESTING, [facility] SODIUM HOSPITA 500 MG INJECTION J1885 [facility] 5 N N KETOROLAC COMMUNTIY COMMUNTIY HOSPITA HOSPITA TROMETHAM INE PER 15 MG INJECTION J2704 [facility] PROPOFOL 5 N N 10 MG COMMUNTIY COMMUNTIY HOSPITA HOSPITA ANES 68850 JULIANE CHI NERVE 5 ANESTHESI PRASHANT MUSCLE A GROUP TDN PS FASCIA&BU RSA FOREARM WRIST INJECTION J3010 [facility] FENTANY[place] 5 N N CITRATE COMMUNTIY COMMUNTIY 0.1 MG HOSPITA HOSPITA INJECTION J2250 [facility] 5 N N MIDAZOLAM COMMUNTIY COMMUNTIY HCL PER HOSPITA HOSPITA 1 MG RINGERS J7120 [facility] LACTATE 5 N N INFUSION COMMUNTIY COMMUNTIY UP TO HOSPITA HOSPITA 1000 CC INJECTION J2001 [facility] 5 N N LIDOCAINE COMMUNTIY COMMUNTIY HCL HOSPITA HOSPITA INTRAVENO US INFUS 10 MG INJECTION J1100 [facility] 5 N N DEXAMETHO COMMUNTIY COMMUNTIY SONE HOSPITA HOSPITA SODIUM PHOSPHATE 1 MG ECG 97355 JOHNNY KEBEDE JR ROUTINE 5 [facility] W/LEAST P 12 LDS I&R ONLY BASIC 61036 JOHNNY TURNER METABOLIC 5 [facility] PANEL INC INC CALCIUM TOTAL BLOOD 65003 JOHNNY TURNER COUNT 5 [facility] COMPLETE INC INC AUTO&AUTO DIFRNTL WBC RADIOLOGI 42690 JOHNNY TURNER C EXAM 5 [facility] CHEST 2 INC INC VIEWS FRONTAL&L ATERAL COLLECTIO 51584 JOHNNY TURNER N VENOUS 5 [facility] BLOOD INC INC VENIPUNCT URE ECG 53188 JOHNNY TURNER ROUTINE 5 [facility] ECG INC INC W/LEAST 12 LDS TRCG ONLY W/O I&R PHYSICAL 38890 JOHNNY TURNER THERAPY 5 [facility] EVALUATIO INC INC N THERAPEUT 23465 JOHNNY TURNER IC PX 1/> 5 [facility] AREAS INC INC EACH 15 MIN EXERCISES MANUAL 08813 JOHNNY TURNER THERAPY 5 [facility] TQS 1/> INC INC REGIONS EACH 15 MINUTES MANUAL 61974 JOHNNY TURNER THERAPY 5 [facility] TQS 1/> INC INC REGIONS EACH 15 MINUTES THERAPEUT 87465 JOHNNY TURNER IC PX 1/> 5 [facility] AREAS INC INC EACH 15 MIN EXERCISES THERAPEUT 00326 JOHNNY TURNER IC PX 1/> 5 [facility] AREAS INC INC EACH 15 MIN EXERCISES MANUAL 06146 JOHNNY TURNER THERAPY 5 [facility] TQS 1/> INC INC REGIONS EACH 15 MINUTES OCCUPATIO 07352 JOHNNY TURNER NAL 5 [facility] THERAPY INC INC EVALUATIO N EXC TUMOR 44344 [facility]IS[facility] TRA SOFT 5 [place] TISS ORTHOPAED FOREARM&/ ICS PLC WRIST SUBFASC <3CM INCISION 49379 [facility] TRA EXTENSOR 5 [place] OR[place]OPAED SHEATH ICS PLC WRIST ANES 05184 JULIANE CARLSON INTEG 5 ANESTHESI OUSMANE EXTREMITI A GROUP ES ANT PS TRUN[place] & [place] [address] P&C LABS, ALMONTE SURG 5 [facility] OUSMANE PATHOLOGY GROSS&RICARDO ROSCOPIC EXAM RADIOLOGI 65576 [facility] [place] PREETHI C EXAM 5 RADIOLOGY RHO CHEST 2 VIEWS FRONTAL&L ATERAL ECG 14972 [facility] ROUTINE 5 N N ECG COMMUNTIY COMMUNTIY W/LEAST HOSPITA HOSPITA 12 LDS TRCG ONLY W/O I&R COLLECTIO 17524 [facility] N VENOUS 5 N N BLOOD COMMUNTIY COMMUNTIY VENIPUNCT HOSPITA HOSPITA URE BASIC 62912 [facility] METABOLIC 5 N N PANEL COMMUNTIY COMMUNTIY CALCIUM HOSPITA HOSPITA TOTAL BLOOD 78351 [facility] COUNT 5 N N COMPLETE COMMUNTIY COMMUNTIY AUTOMATED HOSPITA HOSPITA NEEDLE 35229 [facility] RANJITH EMG EA 5 N EXTREMTY NEUROLOGY W/PARASPI NL AREA COMPLETE NERVE 50012 [facility] CONDUCTIO 5 N N STUDIES NEUROLOGY 9-10 STUDIES COLLECTIO 13051 [facility] N VENOUS 5 Y Y BLOOD [facility] VENIPUNCT URE RADEX 81069 [facility] WRIST 2 5 Y Y VIEWS [facility] RADEX 74136 [place] HAND 2 5 MEDICAL [place] [address] [facility] HEPATITIS 5 Y Y B HOSPITAL HOSPITAL SURFACE ANTIGEN COMPLEMEN 26430 [facility] T ANTIGEN 5 Y Y EACH [facility] COMPONENT CYCLIC 65977 [facility] CITRULLIN 5 Y Y ATED [facility] PEPTIDE ANTIBODY EXTRACTAB 66603 [facility] LE 5 Y Y NUCLEAR [facility] ANTIGEN ANTIBODY ANY METHOD RHEUMATOI 94908 [facility] D FACTOR 5 Y Y QUANTITAT [facility] [place] HEPATITIS 02432 [facility] C 5 Y Y ANTIBODY [facility]OSPITAL SEDIMENTA 89356 [facility] TION RATE 5 Y Y RBC [facility] AUTOMATED ANTINUCLE 94193 [facility] AR 5 Y Y ANTIBODIE [facility] [place] [address] [facility] THYROID 5 Y Y STIMULATI [facility] NG HORMONE TSH C-REACTIV 61941 [facility] E PROTEIN 5 Y Y [facility] SYPHILIS 00104 [facility] TEST 5 Y Y NON-TREPO [facility] NEMAL ANTIBODY QUAL CREATINE 12379 [facility] KINASE 5 Y Y TOTAL [facility] RADIOLOGI 59403 [place] BEINEKE C 5 MEDICAL BORA EXAMINATI IMAGING ON PELVIS ASS 1/2 VIEWS MRI ANY 67748 [facility] TRA JT UPPER 5 [place] EXTREMITY ORTHOPAED W/O ICS PLC CONTRAST MATRL RADEX 58537 [facility] TRA WRIST 2 5 [place] VIEWS ORTHOPAED ICS PLC WRIST L3908 [facility] HAND 5 [facility] ORTHOSIS ORTHOPAED ORTHOPAED EXT IC IC CONTROL COCK-UP PREFAB ANTINUCLE 97061 JOHNNY TURNER AR 5 [facility] [place] [address] JOHNNY TURNER BLOOD/URI 5 [facility] C ACID INC INC BLOOD 15368 JOHNNY TURNER COUNT 5 [facility] COMPLETE INC INC AUTO&AUTO DIFRNTL WBC RHEUMATOI 81818 JOHNNY TURNER D FACTOR 5 [facility] QUANTITAT INC INC [place] SEDIMENTA 88859 JOHNNY TURNER TION RATE 5 [facility] RBC INC INC NON-AUTOM ATED RADEX 83650 [facility] SPINE 4 C VANESA LUMBOSACR CONSULTAN AL 2/3 TS VIEWS RADEX HIP 86024 ORTHOPEDI SANTOYO 4 C VANESA UNILATERA CONSULTAN L TS COMPLETE MINIMUM 2 VIEWS LOCM Q9967 JOHNNY TURNER 300-399 4 [facility] MG/ML [place] [address] JOHNNY TURNER ABDOMEN & 4 [facility] PELVIS INC INC W/[place] [address] JOHNNY TURNER UREA 4 [facility] NITROGEN INC INC QUANTITAT [place] CREATININ 60819 JOHNNY TURNER E BLOOD 4 [facility] INC INC COMPREHEN 45560 JOHNNY TURNER SIVE 4 [facility] METABOLIC INC INC PANEL BLOOD 82366 JOHNNY CASSIDY COUNT 4 [facility] CHR COMPLETE INC AUTO&AUTO DIFRNTL WBC PROTHROMB 38587 JOHNNY TURNER IN TIME 4 [facility] INC INC FLUORESCE 73021 JOHNNY TURNER NT 4 [facility] NONNFCT INC INC AGT ANTB TITER EA ANTIBODY RADEX 92881 SEBASTIAN SEBASTIAN HAND 4 ANTHONY ANTHONY MINIMUM 3 VIEWS RADEX 96436 SEBASTIAN SEBASTIAN WRIST 4 ANTHONY ANTHONY COMPLETE MINIMUM 3 VIEWS RADEX 81363 JOHNNY TURNER WRIST 4 [facility] COMPLETE INC INC MINIMUM 3 VIEWS RADEX 09701 JOHNNY TURNER HAND 4 [facility] MINIMUM 3 INC INC VIEWS RADEX 33721 JOHNNY TURNER FOREARM 2 4 [facility] VIEWS INC INC RADIOLOGI 80484 JOHNNY TURNER C 4 [facility] EXAMINATI INC INC ON KNEE 1/2 VIEWS BLOOD 78951 JOHNNY TURNER COUNT 3 [facility] COMPLETE INC INC AUTO&AUTO DIFRNTL WBC COMPREHEN 33183 JOHNNY TURNER SIVE 3 [facility] METABOLIC INC INC PANEL RADEX 69222 ALEKS FINK WRIST 2 DON DON COMPLETE MINIMUM 3 VIEWS FLUORESCE 76739 JOHNNY TURNER NT 2 [facility] NONNFCT INC INC AGT ANTB TITER EA ANTIBODY COMPREHEN 99394 JOHNNY TURNER SIVE 2 [facility] [place] [address] PATHOLOGY DOROTHY SURG 2 & KIM PATHOLOGY CYTOLOGY LAB GROSS&RICARDO ROSCOPIC EXAM SPCL STN 88062 PATHOLOGY DOROTHY 2 I&R 2 & KIM EXCPT CYTOLOGY MICROORG/ LAB ENZYME/[place] [address] JOHNNY TURNER THYROID 2 [facility] STIMULATI INC INC NG HORMONE TSH COMPREHEN 50116 JOHNNY TURNER SIVE 2 [facility] METABOLIC INC INC PANEL COMPREHEN 04668 JOHNNY TURNER SIVE 1 [facility] METABOLIC INC INC PANEL BLOOD 73975 JOHNNY TURNER COUNT 1 [facility] COMPLETE INC INC AUTO&[place] [address] [place] SEBASTIAN ABDOMINAL 1 MEDICAL ANTHONY REAL IMAGING TIME ASS W/IMAGE DOCUMENTA TION MICROSOMA 20537 JOHNNY TURNER L 1 [facility] ANTIBODIE INC INC S EACH HEPATITIS 55272 JOHNNY TURNER B CORE 1 [facility] ANTIBODY INC INC HBCAB TOTAL HEPATITIS 98148 JOHNNY TURNER B SURF 1 [facility] [address] JOHNNY TURNER HEPATITIS 1 [facility] [place] [address] JOHNNY TURNER THYROID 1 [facility] STIMULATI INC INC NG HORMONE TSH ANTINUCLE 00808 JOHNNY TURNER AR 1 [facility] ANTIBODIE INC INC S GUSTAVO FLUORESCE 88818 JOHNNY TURNER NT 1 [facility] NONNFCT INC INC AGT ANTB TITER EA ANTIBODY HEPATITIS 19753 JOHNNY TURNER C 1 [facility] ANTIBODY INC INC ALPHA-1-A 42840 JOHNNY TURNER NTITRYPSI 1 [facility] N TOTAL INC INC ALPHA-1-A 16679 JOHNNY TURNER NTITRYPSI 1 [facility] [place] [address] JOHNNY TURNER GAMMAGLOB 1 [facility] ULIN IGA INC INC IGD IGG IGM EACH IRON 61186 JOHNNY TURNER BINDING 1 [facility] [place] [address] JOHNNY TURNER GAMMAGLOB 1 [facility] [place] [address] JOHNNY TURNER IRON 1 [facility] INC INC CERULOPLA 51318 JOHNNY TURNER SMIN 1 [place] [address] JOHNNY TURNER FERRITIN 1 [facility] INC INC ESOPHAGOG 4516 JOHNNY TURNER ASTRODUOD 1 [facility] ENOSCOPY [place] [address] [facility] SURG 1 ANGELIA & OUSMANE PATHOLOGY DUBILIER GROSS&RICARDO ROSCOPIC EXAM SPECIAL 88873 [facility] STAIN 1 ANGELIA & OUSMANE GROUP 1 DUBILIER MICROORGA NISMS I&R SPCL STN 69182 [facility] ALMONTE 2 I&R 1 ANGELIA & OUSMANE EXCPT DUBILIER MICROORG/ ENZYME/IM CYT EGD 63561 JOHNNY TURNER TRANSORAL 1 [facility] BIOPSY INC INC SINGLE/[place] [address] JOHNNY TURNER INFUSION 1 [facility] THERAPY INC INC PROPHYLAX IS/DX EA HOUR ANES 30254 [facility] UPPER GI 1 ANESTH ENDOSCOPY OF THE PROXIMAL BLUE TO DUODENUM BLOOD 55933 JOHNNY TURNER COUNT 1 [facility] COMPLETE INC INC AUTO&[place] [address] JOHNNY TURNER THYROID 1 [facility] STIMULATI INC INC NG HORMONE TSH COMPREHEN 44355 JOHNNY TURNER SIVE 1 [facility] [address] JOHNNY TURNER AMYLASE 1 [place] [address] JOHNNY TURNER LIPASE 1 [facility] INC INC CREATINE 39690 JOHNNY TURNER KINASE MB 1 [facility] FRACTION INC INC ONLY CREATINE 79898 JOHNNY TURNER KINASE 1 [facility] TOTAL INC INC BASIC 05555 JOHNNY TURNER METABOLIC 1 [facility] [place] [address] JOHNNY TURNER TROPONIN 1 [facility] QUANTITAT INC INC ALMAS BLOOD 54128 JOHNNY TURNER COUNT 1 [facility] COMPLETE INC INC AUTO&AUTO DIFRNTL WBC RADIOLOGI 81049 [place] MARIELLA C 1 MEDICAL JACEK EXAMINATI IMAGING ON CHEST ASS SINGLE VIEW FRONTAL ECG 03650 JOHNNY LIU ROUTINE 1 [facility] W/LEAST P 12 LDS I&R ONLY ECG 76598 JOHNNY JOHNNY ROUTINE 1 [facility] HOSP ECG INC INC W/LEAST 12 LDS TRCG ONLY W/O I&R Encounters Encounter Start End Date Code Location Performer Type Date HOSPITAL [facility] - 7 7 [facility] T [facility] - 7 7 [facility] T HOSPITAL KAREN - 7 7 N OUTPATIEN COMMUNTIY T HOSPITA EMERGENCY 50113 FABIAN MUKHERJEE 7 7 PHYSICIAN JR GARCIA S, [facility] T VISIT HIGH/URGE NT SEVERITY EMERGENCY 37632 JOHNNY 7 7 [facility] DEPARTMEN INC T VISIT MODERATE SEVERITY HOSPITAL JOHNNY - 7 7 [facility] JOHNNY - 7 7 [facility] OUTPATIEN [facility] T OFFICE 03648 [facility] OUT[facility] 7 7 [place] T VISIT ORTHOPAED 15 IC MINUTES OFFICE 20757 [facility] COMFORT OUTPATIEN 7 7 PHYSICIAN T VISIT S GROUP 15 MINUTES HOSPITAL JOH[facility]Y - 7 7 [facility] - 6 6 [facility] JOHNNY - 6 6 [facility] JOHNNY - 6 6 [facility] J[facility] - 6 6 [facility] JOHNNY - 6 6 [facility] [place] - 6 6 N OUTPATIEN COMMUNY [facility] JOHNNY - 6 6 [facility] OUTPATIEN INC T OFFICE 72521 JUSTIN GARNERT OUTPATIEN 6 6 T VISIT ORTHOPAED 15 ICS PSC MINUTES OFFICE 75523 [facility] OUTPATIEN 6 6 PHYSICIAN RICARDO T VISIT S GROUP 15 MINUTES HOSPITAL JOHNNY - 6 6 [facility] OUTPATIEN [facility] T OFFICE 09112 [facility] COM[facility] OUTPATIEN 6 6 PHYSICIAN RICARDO T VISIT S GROUP 10 MINUTES HOSPITAL JOHNNY - 6 6 [facility] OUTPATIEN INC T OFFICE 34162 JUSTIN GARNERT OUTPATIEN 6 6 T VISIT ORTHOPAED 15 ICS PSC MINUTES OFFICE 26715 JUSTIN LADD OUTPATIEN 6 6 T VISIT ORTHOPAED 15 ICS PSC MINUTES OFFICE 99524 [facility] OUTPATIEN 6 6 PHYSICIAN RICARDO T VISIT S GROUP 15 MINUTES EMERGENCY 31992 FABIAN MUKHERJEE, 6 6 PHYSICIAN JR MATTI GARCIA S, PLLC T VISIT MODERATE SEVERITY OFFICE 60918 [facility] OUTPATIEN 6 6 C VANESA T VISIT CONSULTAN 15 TS MINUTES HOSPITAL JOHNNY - 6 6 [facility] OUTPATIEN INC T OFFICE 67320 [facility] OUTPATIEN 6 6 C VANESA T VISIT CONSULTAN 15 TS MINUTES OFFICE 58777 [facility] FRYMAN OUTPATIEN 6 6 PHYSICIAN EUG T VISIT S GROUP 15 MINUTES HOSPITAL JOHNNY - 6 6 [facility] - 5 5 N OUTPATIEN COMMUNTIY T HOSPITA OFFICE 97476 [facility] COM[facility]ORT OUTPATIEN 5 5 PHYSICIAN RICARDO T VISIT S GROUP 10 MINUTES HOSPITAL JOHNNY - 5 5 [facility] OUTPATIEN INC T OFFICE 81573 [facility] OUTPAT[place] 5 5 [place] T VISIT ORTHOPAED 15 [facility] MINUTES HOSPITAL JOHNNY - 5 5 [facility] OUTPATIEN INC T OFFICE 82688 [facility] OUTPATIEN 5 5 [place] T VISIT ORTHOPAED 15 [facility] MINUTES HOSPITAL JOHNNY - 5 5 [facility] N OUTPATIEN COMMUNTIY T HOSPITA OFFICE 94986 [facility] 5 5 [place] T VISIT ORTHOPAED 15 [facility] MINUTES [facility] - 5 5 Y OUTPATI [facility] T EMERGENCY 79040 FABIAN STALLINGS 5 5 PHYSICIAN U [facility] T VISIT HIGH/URGE NT SEVERITY OFFICE 33446 [facility]TH[facility]EDI SANTOY[facility] OUTPATIEN 5 5 C VANESA T VISIT CONSULTAN 15 TS MINUTES OFFICE 05993 [facility] TRA CONSULTAT 5 5 [place] ION ORTHOPAED NEW/ESTAB [facility] PATIENT 60 MIN OFFICE 16562 [facility] COMFORT OUTPATIEN 5 5 PHYSICIAN RICARDO T VISIT S GROUP 15 MINUTES [facility] - [facility] 5 [facility] INC T OFFICE 43940 [facility] COMFORT OUTPATIEN 4 4 PHYSICIAN RICARDO T VISIT S GROUP 10 MINUTES OFFICE 56293 [facility]THOPEDI SANTOYO OUTPATIEN 4 4 C VANESA T NEW 30 CONSULTAN MINUTES TS OFFICE 10966 [facility] BASILIO JR OUTPATIEN 4 4 PHYSICIAN MACARIO T VISIT S GROUP 15 MINUTES [facility] OUT[facility]IEN INC T OFFICE 17407 ALLRAN JR ALLRAN JR CONSULTAT 4 4 MACARIO MACARIO ION NEW/ESTAB PATIENT 60 MIN OFFICE 19269 [facility]ADE [facility] OUTPATIEN 4 4 T VISIT 25 MINUTES [facility] T OFFICE 49283 [facility] COMFORT OUTPATIEN 4 4 PHYSICIAN RICARDO T VISIT S GROUP 10 MINUTES [facility] 4 4 [facility] OUTPATIEN INC T OFFICE 08072 [facility] COMFORT OUTPATIEN 4 4 RICARDO RICARDO T VISIT 10 MINUTES [facility] INC T OFFICE 44001 PETTEY PETTEY OUTPATIEN 4 4 JAM JAM T NEW 45 MINUTES [facility] 3 [facility] INC T OFFICE 47319 MAEDE LORA [facility] OUTPATIEN 3 3 T VISIT 25 MINUTES OFFICE 70382 [facility] FINK OUTPATIEN 2 2 DON DON T VISIT 15 MINUTES OFFICE 55470 [facility] OUTPATIEN 2 2 T VISIT 15 MINUTES OFFICE 60622 ALEKS FINK OUTPATIEN 2 2 DON DON T VISIT 25 MINUTES [facility] 2 [facility] INC T OFFICE 09556 [facility] OUTPATIEN 2 2 T VISIT 15 MINUTES OFFICE 22852 [place] OUTPATIEN 2 2 MEDICAL T VISIT SERV 25 FOUNDATIO MINUTES [facility] - 2 2 [facility] OUTPATIEN [facility] T OFFICE 54888 SHIVAM MEADE [facility] OUTPATIEN 1 1 MEDICAL T VISIT SERV 25 FOUNDATIO MINUTES [facility] - 1 1 [facility] OUTPATIEN [facility] - 1 1 [facility] OUTPATIEN [facility] T OFFICE 57398 [place] [facility] [place] OUTPATIEN 1 1 MEDICAL T VISIT SERV 40 FOUNDATIO MINUTES [facility] - 1 1 [facility] OUTPATIEN [facility] - 1 1 [facility] OUTPATIEN INC T OFFICE 02102 [place] ME[facility] [place] CONSULTAT 1 1 MEDICAL ION SERV NEW/ESTAB FOUNDATIO PATIENT 60 MIN OFFICE 59365 [facility] FINK OUTPATIEN 1 1 DON DON T VISIT 15 MINUTES OFFICE 30295 [facility] OUTPATIEN 1 1 DON DON T VISIT 15 MINUTES [facility] OUT[facility]IEN INC T EMERGENCY 48318 DOROTHY MOYER DEPT 1 1 EMERGENCY RICARDO VISIT SERVICES HIGH SEVERITY& THREAT FUN EMERGENCY 44996 [facility] 1 1 [facility] T VISIT HIGH/URGE NT SEVERITY
--- OUTSIDE RECORDS SUMMARY | 2016-12-14 13:22 | External Medical Summary Rpt ---
Author Author , Organization [employer] Address Unknown Phone Unavailable Care Team Providers Care Pc Support Specialist Name Role Phone ALLRAN MACARIO, ALLRAN Unavailable Unavailable JR MACARIO BELEAH BORA, BEINEKE Unavailable Unavailable BORA BESSON, BESSON Unavailable Unavailable BESSON GI, BESSON Unavailable Unavailable [facility] Unavailable [facility]available [facility], [facility] SILVA ALL, SILVA ALL Unavailable Unavailable [facility] Unavailable Unavailable SERVICE, [facility]available Unavailable SERVICE, [facility] Unavailable [facility]available [facility]TH[facility]EDIC, [facility] Unavailable Unavailable [facility], [facility] Unavailable Unavailable [facility], [facility] CHIPPS ANGELIA & Unavailable Unavailable DUBILIER, [facility], Un[facility] SEBASTIAN ANTHONY, Unavailable Unavailable SEBASTIAN ANTHONY SEBASTIAN ANTHONY, Unavailable Unavailable SEBASTIAN ANTHONY [facility] Unavailable Unavailable [place], [facility] [place] [facility], Unavailable Unavailable LLC, [facility] FRYMAN EUG, FRYMAN Unavailable Unavailable EUG JR MUKHERJEE FULLER, Unavailable Unavailable JR JR MATTI MUKHERJEE, Unavailable Unavailable JR MATTI MUKHERJEE COMFORT, COMFORT Unavailable Unavailable COMFORT RICARDO, COMFORT Unavailable Unavailable RICARDO COMFORT RICARDO, COMFORT Unavailable Unavailable RICARDO [facility] LEVY, LEVY Unavailable Unavailable LEVY RICARDO, LEVY Unavailable Unavailable RICARDO PREETHI RHO, PRETEHI Unavailable Unavailable RHO [facility] Unavailable Unavailable INC, [facility] Unavailable Unavailable [facility]PITAL [facility], [facility], Unavailable Unavailable [facility] CRISOSTOMO, CRISOSTOMO Unavailable Unavailable CRISOSTOMO TRA, CRISOSTOMO TRA Unavailable Unavailable WILBERTO LADD Unavailable Unavailable [facility] Un[facility] Unavailable GROUP PS, [facility] Unavailable Unavailable [facility], [facility] Un[facility], [facility] Un[facility], [facility] DELIO DWI, DELIO DWI Unavailable Unavailable DELIO JR DWI, DELIO Unavailable Unavailable JR DWI ALMONTE OUSMANE, ALMONTE Unavailable Unavailable OUSMANE DOROTHY KIM, Unavailable Unavailable DOROTHY ANN [facility] Unavailable Unavailable SERVICES, [facility] MARIELLA JACEK, MARIELLA Unavailable Unavailable JACEK FINK JUS, Unavailable Unavailable FINK JUS WALL DANNA, WALL DANNA Unavailable Unavailable [address] Unavailable Unavailable MRI [facility], [address] [facility] Unavailable Unavailable [facility], [facility] Unavailable Unavailable CONSULTANTS, [facility], [facility], [facility] Unavailable Unavailable LABS, LLC [...] FINK DON ROBYN ROMEO, ROBYN Unavailable Unavailable [facility], Unavailable Unavailable [facility] N[facility]EL ALEXIS, NATANAEL Unavailable Unavailable VANESA [facility] # Unavailable Unavailable [id number], [facility] # [id number] Purpose Continuity of Care Document - 08-17-2010 through 2016 Problems Code Diagnosis DOS Provider Status [id number] OTHER LONG 11-04-2016 [facility] TERM [facility] CURRENT INC DRUG THERAPY [id number] UNS TEAR 09-09-2016 JULIANE UNS ANESTHESIA MENISCUS GROUP PS CURR INJ LT KNEE INIT ENC [id number] OTH TEAR 09-09-2016 [facility] LAT MENISC COMMUNTIY CURRNT INJ HOSPITA LT KNEE INIT ENC Z720 TOBACCO USE 09-09-2016 [facility] K219 GASTRO-ESOP 09-06-2016 [facility] H REFLUX [facility] DISEASE INC WITHOUT ESOPHAGITIS M1612 UNILATERAL 09-06-2016 [facility] TIS LEFT HIP Z25370 PAIN IN 09-06-2016 [facility] C96327 PAIN IN 09-06-2016 [facility] B35965 PAIN IN 09-06-2016 [facility] LEFT KNEE PHYSICIANS, [facility] M461 SACROILIITI 09-06-2016 [facility] S NOT MEDICAL ELSEWHERE IMAGING ASS CLASSIFIED 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 M5442 LUMBAGO 09-06-2016 [facility] WITH PHYSICIANS, SCIATICA [facility] LEFT SIDE M545 LOW BACK 09-06-2016 [facility] PAIN [facility] C40319 PAIN IN 09-06-2016 [facility] RIGHT LEG AMBULANCE SERVICE M8588 OTH SPEC 09-06-2016 [facility] D/O BONE MEDICAL DENSITY IMAGING ASS STRUCTURE OT SITE R200 ANESTHESIA 09-06-2016 [facility] OF SKIN AMBULANCE SERVICE C8900DD UNS INJURY 09-06-2016 [facility] LT LOWER MEDICAL LEG INITIAL IMAGING ASS ENCOUNTER J449 CHRONIC 09-04-2016 [facility] OBSTRUCTIVE [facility]ICAL PULMONARY IMAGING ASS DISEASE UNS R911 SOLITARY 09-04-2016 [facility] PULMONARY [facility]ICAL NODULE IMAGING ASS Z98155 ENCOUNTER 09-04-2016 [facility] P AL CARIOVASCUL AR EXAM X13271 ENCOUNTER 09-04-2016 [facility] P AL LABORATORY EXAM [id number] BUCKET-HAND 08-27-2016 [facility] TEAR LAT [facility] CURR LT KNEE INIT R296 REPEATED 06-19-2016 [place] [facility] C15824E OTH TEAR 05-02-2016 [facility] LAT MENISC [facility] CURRNT INJ INC LT KNEE SBSQT ENC K92993 DERANG POST 03-25-2016 [facility] MENISC OLD HOSPITA TEAR/INJ LT KNEE G51206 DERANG OTH 03-25-2016 [facility] LAT MENISC COMMUNTIY D/T OLD HOSPITA TEAR/INJ LT KNEE Q686 DISCOID 03-25-2016 [facility] S PSC [id number] OTH TEAR 03-25-2016 [facility] MENISCUS S PSC CURR INJ LT KNEE INIT ENC B32974 PAIN IN 03-20-2016 [facility] UNSPECIFIED [facility] P R197 DIARRHEA 03-20-2016 [facility] UNSPECIFIED MEM H[facility] INC I12329 ENCOUNTER 03-20-2016 [facility] P AL RESPIRATORY EXAM [id number] OTH TEAR 03-05-2016 [facility] MENISCUS S PSC CURR INJ LT KNEE SBSQT ENC M1990 UNSPECIFIED 02-24-2016 [facility] PHYSICIANS OSTEOARTHRI GROUP TIS UNSPECIFIED SITE M5416 RADICULOPAT 02-24-2016 [facility] HY LUMBAR PHYSICIANS REGION GROUP [id number] FRACTURE 12-04-2015 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 M5135 OT 11-18-[address] [facility] RAL DISC LLC DEGEN THORACOLUMB AR RGN M5136 OT 11-18-[address] [facility] RAL DISC LLC DEGEN LUMBAR REGION M5137 OT 11-18-[address] MRI RAL DISC LLC DEGEN LUMBOSACRAL REGION 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 TUNNEL PHYSICIANS SYNDROME GROUP UNSPECIFIED UPPER LIMB R05 COUGH 06-14-2015 [facility] H46052 ENCOUNTER 06-14-2015 [facility] FOR OTHER [facility] P AL EXAMINATION 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 CERV REGION S78500 PAIN IN 05-16-2015 [facility] [place] LEFT WRIST [facility]OP[facility]EDIC S PLC M79A12 NONTRAUMATI 05-06-2015 [facility] C [facility]OS[facility] COMPARTMENT INC SYNDROME LT UP EXTREM 05241 HEMANGIOMA 04-03-2015 [facility] [place] OF SKIN AND ORTHOPAEDIC S PLC SUBCUTANEOU S TISSUE 93476 OTHER 04-03-2015 [facility] SYMPTOMS ANESTHESIA REFERABLE GROUP PS TO FOREARM JOINT 57821 RADIAL 04-03-2015 [facility] [place] STYLOID ORTHOPAEDIC TENOSYNOVIT S PLC IS 7822 LOCALIZED 04-03-2015 [facility], SUPERF[facility]IAL LLC [place]MP 02973 NEOPLASMS 03-28-2015 [facility] UNSPECIFIED COMMUNTIY NATURE OT HOSPITA SPECIFIED SITES V7283 OTHER 03-28-2015 [facility] SPECIFIED COMMUNTIY PRE-OPERATI HOSPITA VE EXAMINATION 3540 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 [facility] [place] TUN[place]EL [facility]IC SYNDROME S 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 JOINT, SITE PHYSICIANS GROUP UNSPECIFIED 7242 LUMBAGO 05-29-2014 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 PAIN RIGHT PHYSICIANS LOWER GROUP QUADRANT 36353 ABDOMINAL 04-04-2014 [facility] PAIN, MEM HOSP UNSPECIFIED INC SITE 20044 ESOPHAGEAL 03-12-2014 [facility] REFLUX 5718 OTHER 03-12-2014 MAEDE [facility]OR[facility] CHRONIC NONALCOHOLI C LIVER DISEASE 7906 OTHER 03-12-2014 [facility] ABNORMAL BLOOD CHEMISTRY 59237 OTHER 02-20-2014 [facility] SYMPTOMS PHYSICIANS INVOLVING GROUP URINARY SYSTEM 28945 PAIN IN 12-15-2013 [facility]Y JOINT, HAND MEM HOS[facility] INC 26801 OSTEOARTHRO 12-12-2013 [facility] SILVA S UNSPEC WHETHER GEN/LOC UNSPEC SITE 9592 INJURY 12-12-2013 COMFORT RICARDO OTHER&UNSPE CIFIED SHOULDER&UP PER ARM 7177 CHONDROMALA 10-26-2013 PETTE[facility] JAM TOBIAS OF [place] 88695 PAIN IN 10-26-2013 [facility] JOINT, MEM HOSP LOWER LEG INC 7282 MUSCULAR 10-26-2013 PETTEY JAM WASTING AND DISUSE ATROPHY NEC 7295 PAIN IN 10-26-2013 [facility] SOFT ANTHONY TISSUES OF LIMB E8889 UNSPECIFIED 10-26-2013 SE[facility]IAN FALL ANTHONY V1551 PERSONAL 10-26-2013 VALDEMAR ALLEN HISTORY OF TRAUMATIC FRACTURE 7948 NONSPECIFIC 05-08-2013 [facility] ABNORMAL [facility] RESULTS INC LIVR FUNCTION STUDY 7871 HEARTBURN 03-27-2013 [facility] 48255 CLOSED 04-27-2012 [facility] FRACTURE OF DON UNSPECIFIED PART OF RADIUS 7905 OTHER 04-25-2012 [facility] NONSPECIFIC ABNORMAL SERUM ENZYME LEVELS 02048 OTHER 11-17-2011 PATHOLOGY & CHRONIC CYTOLOGY HEPATITIS LAB 11191 THYROTOX 08-31-2011 [place] W/O [facility] GOITER/OTH INC CAUSE W/O CRISIS 55296 DIARRHEA 04-17-2011 [facility] 82810 ABDOMINAL 04-13-2011 [place] [facility] PA[facility], SERV EPIGASTRIC FOUNDAT[facility] 25809 REFLUX 03-23-2011 [place] [facility] ESOPHAGITIS SERV FOUNDATIO 37782 OTHER SPEC 03-23-2011 [facility] GASTRITIS ANGELIA & WITHOUT DUBILIER MENTION HEMORRHAGE 5379 UNSPECIFIED 03-23-2011 [place] [facility] DISORDER SERV OF STOMACH FOUNDATIO AND DUODENUM 7831 ABNORMAL 03-10-2011 [place] WEIGHT GAIN [facility] INC 63009 CHEST PAIN 08-17-2010 [facility] UNSPECIFIED [facility]ERGENCY SERVICES 08436 OTHER CHEST 08-17-2010 [facility] P F41.9 ANXIETY DISORDER, UNSPECIFIED Medications Na [...] ve LO 37 20 20 48 DE GA 50 17 17 36 AM 1 82 [...] 48 DE ZA 11 17 17 31 GA 0 35 PH IN AR E MA [...] ve LO 37 20 20 47 DE GA 50 17 17 97 AM 1 40 [...] 47 DE ZA 11 17 17 80 GA 0 32 PH IN AR E MA [...] 2 53 PH CE AR TA MA IN CY NO PH OF EN CY NT 5- HI 32 AN 5 A IN C ES 65 02 03 30 30 00 EA Ac CI 86 -1 -[address] ti TA 20 4- 0- 00 00 SI ve LO 37 20 20 47 DE GA 50 17 17 61 AM 1 26 [...] 47 DE ZA 11 17 17 49 GA 0 45 PH IN AR E MA [...] 19 CE 0 73 PH TA AR IN MA NO CY PH EN OF CY 7. NT 5- HI 32 AN 5 A IN C ES 65 01 02 30 30 00 EA Ac CI 86 -1 -[address] ti TA 20 2- 7- 00 00 SI ve LO 37 20 20 46 DE GA 50 17 17 87 AM 1 03 [...] 87 CE 0 07 PH TA AR IN MA NO CY PH EN OF CY 7. NT 5- HI 32 AN 5 A IN C ES 65 12 01 30 30 00 EA Ac CI 86 -1 -[address] ti TA 20 3- 3- 00 00 SI ve LO 37 20 20 46 DE GA 50 16 17 87 AM 1 03 [...] OF ET CY NT HI AN A GA 37 08 08 5 60 30 WA [...] OF ET CY NT HI AN A GA 37 08 08 5 60 30 WA 88 PE Ac IL 00 -0 -0 .0 L- 18 NA ti OS 00 2- 2- 00 MA 47 ve EC 45 20 20 RT 2 TRACE 50 11 11 IS OT 4 PH R C AR 20 MA .6 CY # MG 10 TA 05 BL 91 ET GA 37 07 07 5 30 30 CL [...] BL ET CY NT HI AN A GA 00 05 05 [address] Ac OM 78 -2 -[address] 62 EP ti ET 11 0- 0- 00 SI 04 HE ve AMARAL 83 20 20 DE NS ZI 01 11 11 NE 0 PH DO AR N 25 MA R CY MG OF TA BL CY ET NT HI AN A GA 37 04 05 5 30 30 EA [...] OF ET CY NT HI AN A GA 00 05 05 0 20 5 EA [...] UL CY E NT HI AN A GA 37 04 04 5 30 30 EA [...] DOS Code Location Performer Comment DRUG TEST 84153 J[facility] TURNER PRSMV 7 [facility] QUAL DIR INC INC OPTICAL OBS PER DAY DRUG TEST 74388 J[facility]Y TURNER PRSMV 7 MEM [facility] QUAL DIR INC INC OPTICAL OBS PER DAY INJECTION J1100 [facility] 7 N N DEXAMETHO COMMUNTIY COMMUNTIY SONE HOSPITA HOSPITA SODIUM PHOSPHATE 1 MG INJECTION J2001 [facility] 7 N N LIDOCAINE COMMUNTIY COMMUNTIY HCL HOSPITA HOSPITA INTRAVENO US INFUS 10 MG RINGERS J7120 [facility] LACTATE 7 N N INFUSION COMMUNTIY COMMUNTIY UP TO HOSPITA HOSPITA 1000 CC INJECTION J0690 [facility] 7 N N CEFAZOLIN COMMUNTIY COMMUNTIY SODIUM HOSPITA HOSPITA 500 MG INJECTION J2250 [facility] 7 N N MIDAZOLAM COMMUNTIY COMMUNTIY HCL PER HOSPITA HOSPITA 1 MG INJECTION J2704 [facility] PROPOFOL 7 N N 10 MG COMMUNTIY COMMUNTIY HOSPITA HOSPITA INJECTION J3010 [facility] FENTANYL 7 N N CITRATE COMMUNTIY COMMUNTIY 0.1 MG HOSPITA HOSPITA ANES 46424 JULIANE LEVY OPEN/SURG 7 ANESTHESI A GROUP ARTHROSCO PS PIC PROC KNEE JOINT NOS ARTHRS 25277 [facility] KNE SURG 7 N N W/MENISCE COMMUNTIY COMMUNTIY CTOMY HOSPITA HOSPITA MED/LAT W/SHVG INJECTION J1885 [facility] 7 N N KETOROLAC COMMUNTIY COMMUNTIY HOSPITA HOSPITA TROMETHAM INE PER 15 MG BLOOD 98311 J[facility]NNY TURNER COUNT 7 MEM H[facility] COMPLETE INC INC AUTO&AUTO DIFRNTL WBC GROUND A0425 [facility]ANCE AMBULANCE PER SERVICE SERVICE STATUTE MILE AMBULANCE A0429 [facility] SERVICE 7 AMBULANCE AMBULANCE BLS SERVICE SERVICE EMERGENCY TRANSPORT COLLECTIO 47807 J[facility]NNY TURNER N VENOUS 7 MEM H[facility] BLOOD INC INC VENIPUNCT URE THER 42184 JOHNNY TURNER PROPH/DX 7 [facility] NJX IV INC INC PUSH SINGLE/1S T SBST/DRUG CT LUMBAR 68382 JOHNNY TURNER SPINE 7 MEM HOS[facility] W/O INC INC CONTRAST MATERIAL RADEX HIP 90755 [facility]Y TURNER 7 MEM HOSP MEM HOSP UNILATERA INC INC L WITH PELVIS 2-3 VIEWS RADIOLOGI 58913 J[facility]NNY TURNER C 7 MEM HOSP [facility]OS[facility] EXAMINATI INC INC ON KNEE 3 VIEWS UNCLASSIF J3490 JOHNNY JOHNNY IED DRUGS 7 MEM HOSP [facility]OS[facility] INC INC COMPREHEN 31932 JOHNNY JOHNNY SIVE 7 MEM HOS[facility]OS[facility] METABOLIC INC INC PANEL RADIOLOGI 00953 JOHNNY Walsh EXAM 7 [facility] CHEST 2 INC INC VIEWS FRONTAL&L ATERAL ECG 47162 JOHNNYMONY TURNER ROUTINE 7 [facility] ECG INC INC W/LEAST 12 LDS TRCG ONLY W/O I&R COLLECTIO 03272 JOHNNY TURNER N VENOUS 7 MEM H[facility] BLOOD INC INC VENIPUNCT URE ECG 41150 JOHNNY HURTADO ROUTINE 7 [facility] W/LEAST P 12 LDS I&R ONLY BASIC 25823 JOHNNY TURNER METABOLIC 7 MEM HOSP MEM HOSP PANEL INC INC CALCIUM TOTAL DRUG TEST 77668 JOHNNY TURNER PRSMV 7 MEM HOSP [facility] QUAL DIR INC INC OPTICAL OBS PER DAY DRUG 63210 JOHNNY TURNER SCREENING 7 MEM H[facility] OPIOIDS INC INC & OPIATE ANALOGS 5/MORE MRI ANY 29888 JUSTIN CRISOSTOMO JT LOWER 6 EXTREM ORTHOPAED W/O ICS PSC CONTRAST MATRL DRUG TST G0477 JOHNNY TURNER PRESUMP;C 6 MEM HOSP MEM HOSP PBL BEING INC INC READ DC OPT OBV ONLY RADIOLOGI 52991 JUSTIN Walsh 6 EXAMINATI ORTHOPAED ON KNEE 3 ICS PSC VIEWS CANE E0105 KEON HERBERT QUAD/3-GA 6 HOME HOME DIALLO ALL MEDICAL MEDICAL MATL EQUIPME EQUIPME ADJUSTBL/ FIX W/TIPS DRUG TST G0477 JOHNNY TURNER PRESUMP;C 6 MEM HOSP MEM HOSP PBL BEING INC INC READ DC OPT OBV ONLY DRUG TST G0477 JOHNNY TURNER PRESUMP;C 6 MEM HOSP MEM HOSP PBL BEING INC INC READ DC OPT OBV ONLY THERAPEUT 27714 JOHNNY TURNER IC PX 1/> 6 [facility] H[facility] AREAS INC INC EACH 15 MIN EXERCISES THERAPEUT 30140 JOHNNY JOHNNY IC PX 1/> 6 [facility] AREAS INC INC EACH 15 MIN EXERCISES PHYSICAL 38621 JOHNNY TURNER THERAPY 6 [facility] EVALUATIO INC INC N ANES 29352 JULIANE LEVY OPEN/SURG 6 ANESTHESI RICARDO A GROUP ARTHROSCO PS PIC PROC KNEE JOINT NOS ARTHRS 60847 [facility] KNEE 6 N N W/MENISCE COMMUNTIY COMMUNTIY CTOMY HOSPITA HOSPITA MED&LAT W/SHAVING INJECTION J2270 [facility] MORPHINE 6 N N SULFATE COMMUNTIY COMMUNTIY UP TO 10 HOSPITA HOSPITA MG INJECTION J0690 [facility] 6 N N CEFAZOLIN COMMUNTIY COMMUNTIY SODIUM HOSPITA HOSPITA 500 MG INJECTION J2704 [facility] PROPOFOL 6 N N 10 MG COMMUNTIY COMMUNTIY HOSPITA HOSPITA INJECTION J3010 [facility] FENTANYL 6 N N CITRATE COMMUNTIY COMMUNTIY 0.1 MG HOSPITA HOSPITA INJECTION J1100 [facility] 6 N N DEXAMETHO COMMUNTIY COMMUNTIY SONE HOSPITA HOSPITA SODIUM PHOSPHATE 1 MG RINGERS J7120 [facility] LACTATE 6 N N INFUSION COMMUNTIY COMMUNTIY UP TO HOSPITA HOSPITA 1000 CC ECG 11892 JOHNNY HURTADO ROUTINE 6 [facility] W/LEAST P 12 LDS I&R ONLY BASIC 99206 JOHNNY TURNER METABOLIC 6 [facility] PANEL INC INC CALCIUM TOTAL BLOOD 14434 JOHNNY TURNER COUNT 6 [facility] COMPLETE INC INC AUTO&AUTO DIFRNTL WBC ECG 61233 JOHNNY TURNER ROUTINE 6 [facility] ECG INC INC W/LEAST 12 LDS TRCG ONLY W/O I&R COLLECTIO 13872 JOHNNY TURNER N VENOUS 6 [facility] BLOOD INC INC VENIPUNCT URE RADIOLOGI 66938 JOHNNY TURNER C EXAM 6 MEM HOSP [facility] HOSP CHEST 2 INC INC VIEWS FRONTAL&L ATERAL RADIOLOGI 23938 [facility] SHIRA ALL C 6 MEDICAL EXAMINATI IMAGING ON CHEST ASS SINGLE VIEW FRONTAL DRUG TST G0477 JOHNNY TURNER PRESUMP;C 6 MEM H[facility]P [facility]OS[facility] PBL BEING INC INC READ DC OPT OBV ONLY DRUG TST G0477 JOHNNY TURNER PRESUMP;C 6 MEM H[facility]P [facility]OS[facility] PBL BEING INC INC READ DC OPT OBV ONLY ARTHROCEN 35966 JUSTIN CRISOSTOMO TESIS 6 ASPIR&/IN ORTHOPAED J MAJOR ICS PSC JT/BURSA W/O US MRI ANY 66953 JUSTIN CRISOSTOMO TRA JT LOWER 6 EXTREM ORTHOPAED W/O ICS PSC CONTRAST MATRL RADIOLOGI 56940 JUSTIN Walsh 6 EXAMINATI ORTHOPAED ON KNEE ICS PSC 1/2 VIEWS RADIOLOGI 25663 [facility] SHIRA ALL C 6 MEDICAL EXAMINATI IMAGING ON KNEE ASS 1/2 VIEWS RADEX 53965 [facility] SHIRA ALL RIBS UNI 6 MEDICAL W/POSTERO IMAGING ANT CH ASS MINIMUM 3 VIEWS LUMB L0642 KE[facility] NIXRELL ORTHOS 6 HOME HOME S[facility] MEDICAL MEDICAL CTRL RIGD EQUIPME EQUIPME ANT POST PANELS MRI 82575 SHARON HERRERA SPINAL [address] CANAL MRI [facility] LUMBAR W/O CONTRAST MATERIAL DRUG TST G0477 JOHNNY TURNER PRESUMP;C 6 MEM HOSP MEM HOSP PBL BEING INC INC READ DC OPT OBV ONLY RADEX 67854 ORTHOPEDI SANT[place] SPINE 6 C VANESA LUMBOSACR CONSULTAN AL 2/3 TS VIEWS DRUG TST G0477 JOHNNY TURNER PRESUMP;C 6 MEM HOSP MEM HOSP PBL BEING INC INC READ DC OPT OBV ONLY INCISION 10678 [facility] CRISOSTOM[facility] TRA EXTENSOR 5 [place] ORTHOPAED SHEATH ICS PLC WRIST NEUROPLAS 25337 [facility] CRISOSTOMO TRA TY 5 [place] &/TRANSPO ORTHOPAED S MEDIAN ICS PLC NRV CARPAL TUNNE INJECTION J0690 [place] ESSENTIAL 5 N TESTING, [facility] COMMUNTIY LLC SODIUM HOSPITA 500 MG INJECTION [id number] [facility] 5 N N KET[place]OL[place] COMMUNTIY COMMUNTIY HOSPITA HOSPITA [place] INE PER 15 MG INJECTION J2704 [facility] PROPOFOL 5 N N 10 MG COMMUNTIY COMMUNTIY HOSPITA HOSPITA ANES 56993 JULIANE CHI NERVE 5 ANESTHESI PRASHANT MUSCLE A GROUP TDN PS FASCIA&BU RSA FOREARM WRIST INJECTION J3010 [facility] FENTANYL 5 N N [place] COMMUNTIY COMMUNTIY 0.1 MG HOSPITA HOSPITA INJECTION J2250 [facility] 5 N N MIDAZOLAM COMMUNTIY COMMUNTIY HCL PER HOSPITA HOSPITA 1 MG RINGERS J7120 [facility] LACTATE 5 N N INFUSION COMMUNTIY COMMUNTIY UP TO HOSPITA HOSPITA 1000 CC INJECTION J2001 [facility] 5 N N LIDOCAINE COMMUNTIY COMMUNTIY HCL HOSPITA HOSPITA INTRAVENO US INFUS 10 MG INJECTION J1100 [facility] 5 N N DEXAMETHO COMMUNTIY COMMUNTIY SONE HOSPITA HOSPITA SODIUM PHOSPHATE 1 MG ECG [id number] JOHNNY KEBEDE JR ROUTINE 5 [facility] W/LEAST P 12 LDS I&R ONLY BASIC 37859 JOHNNY TURNER METABOLIC 5 [facility] PANEL INC INC CALCIUM TOTAL BLOOD 27021 JOHNNY TURNER COUNT 5 [facility] COMPLETE INC INC AUTO&AUTO DIFRNTL WBC RADIOLOGI 79126 JOHNNY TURNER C EXAM 5 [facility] CHEST 2 INC INC VIEWS FRONTAL&L ATERAL COLLECTIO 12256 JOHNNY TURNER N VENOUS 5 [facility] BLOOD INC INC VENIPUNCT URE ECG 03420 JOHNNY TURNER ROUTINE 5 [facility] ECG INC INC W/LEAST 12 LDS TRCG ONLY W/O I&R PHYSICAL 98352 JOHNNY TURNER THERAPY 5 [facility] EVALUATIO INC INC N THERAPEUT 24619 JOHNNY TURNER IC PX 1/> 5 [facility] AREAS INC INC EACH 15 MIN EXERCISES MANUAL 16978 JOHNNY TURNER THERAPY 5 [facility] TQS 1/> INC INC REGIONS EACH 15 MINUTES MANUAL 45637 JOHNNY TURNER THERAPY 5 [facility] TQS 1/> INC INC REGIONS EACH 15 MINUTES THERAPEUT 61160 JOHNNY TURNER IC PX 1/> 5 [facility] AREAS INC INC EACH 15 MIN EXERCISES THERAPEUT 57962 JOHNNY TURNER IC PX 1/> 5 [facility] AREAS INC INC EACH 15 MIN EXERCISES MANUAL 25976 JOHNNY TURNER THERAPY 5 [facility] TQS 1/> INC INC REGIONS EACH 15 MINUTES OCCUPATIO 60989 JOHNNY TURNER NAL 5 [facility] THERAPY INC INC EVALUATIO N EXC TUMOR 62157 [facility] TRA SOFT 5 [place] [employer] FOREARM&/ [facility] WRIST SUBFASC <3CM INCISION 21196 [facility] TRA EXTENSOR 5 [place] [facility] WRIST ANES 56717 JULIANE CARLSON INTEG 5 ANESTHESI OUSMANE EXTREMITI A GROUP ES ANT PS TRUN[place] [address] [facility], [place]MONTE SURG 5 [facility] OUSMANE PATHOLOGY GROSS&RICARDO ROSCOPIC EXAM RADIOLOGI 17535 [facility] [place] PREETHI C EXAM 5 RADIOLOGY RHO CHEST 2 VIEWS FRONTAL&L ATERAL ECG 60520 [facility] ROUTINE 5 N N ECG COMMUNTIY COMMUNTIY W/LEAST HOSPITA HOSPITA 12 LDS TRCG ONLY W/O I&R COLLECTIO 89575 SELECT [facility] N VENOUS 5 N N BLOOD COMMUNTIY COMMUNTIY VENIPUNCT HOSPITA HOSPITA URE BASIC [id number] [facility] METABOLIC 5 N N PANEL COMMUNTIY COMMUNTIY CALCIUM HOSPITA HOSPITA TOTAL BLOOD 08697 [facility] COUNT 5 N N COMPLETE COMMUNTIY COMMUNTIY AUTOMATED HOSPITA HOSPITA NEEDLE 33758 [facility] EMG EA 5 N EXTREMTY NEUROLOGY W/PARASPI NL AREA COMPLETE NERVE 95589 [facility] CONDUCTIO 5 N N STUDIES NEUROLOGY 9-10 STUDIES COLLECTIO 29212 [facility] N VENOUS 5 Y Y BLOOD [facility] VENIPUNCT URE RADEX 24129 [facility] WRIST 2 5 Y Y VIEWS [facility] RADEX 64843 [place] [facility] HAND 2 5 MEDICAL [place] [address] [facility] HEPATITIS 5 Y Y B HOSPITAL HOSPITAL SURFACE ANTIGEN COMPLEMEN 13363 [facility] T ANTIGEN 5 Y Y EACH [facility] COMPONENT CYCLIC 73343 [facility] CITRULLIN 5 Y Y ATED [facility] PEPTIDE ANTIBODY EXTRACTAB 58901 [facility] LE 5 Y Y NUCLEAR [facility] ANTIGEN ANTIBODY ANY METHOD RHEUMATOI 37380 [facility] D FACTOR 5 Y Y QUANTITAT [facility] [place] HEPATITIS 40344 [facility] C 5 Y Y ANTIBODY [facility] SEDIMENTA 17239 [facility] TION RATE 5 Y Y RBC [facility] AUTOMATED ANTINUCLE 72370 [facility] AR 5 Y Y ANTIBODIE [facility] [place] [address] [facility] THYROID 5 Y Y STIMULATI [facility] NG HORMONE TSH C-REACTIV 28216 [facility] E PROTEIN 5 Y Y [facility] SYPHILIS 82303 [facility] TEST 5 Y Y NON-TREPO [facility] NEMAL ANTIBODY QUAL CREATINE 56098 [facility] KINASE 5 Y Y TOTAL [facility] RADIOLOGI 87453 [place] [facility] C 5 MEDICAL [place] EXAMINATI IMAGING ON PELVIS ASS 1/2 VIEWS MRI ANY 24386 [facility] JT UPPER 5 [place] EXTREMITY ORTHOPAED W/O [facility] CONTRAST MATRL RADEX 66025 [facility] WRIST 2 5 [place] VIEWS [facility]AED [facility] WRIST L3908 [facility] HAND 5 [facility] ORTHOSIS ORTHOPAED ORTHOPAED EXT IC IC CONTROL COCK-UP PREFAB ANTINUCLE 03192 [facility] AR 5 [facility] [place] [address] [facility] TUR[facility] BLOOD/URI 5 [facility] C ACID INC INC BLOOD 63163 [facility] COUNT 5 [facility] COMPLETE INC INC AUTO&AUTO DIFRNTL WBC RHEUMATOI 88679 [facility] D FACTOR 5 [facility] QUANTITAT INC INC [place] SEDIMENTA 51603 [facility] TION RATE 5 [facility] RBC INC INC NON-AUTOM ATED RADEX 79616 [facility] SPINE 4 C VANESA LUMBOSACR CONSULTAN AL 2/3 TS VIEWS RADEX HIP 59455 [facility] 4 C VANESA UNILATERA CONSULTAN L TS COMPLETE MINIMUM 2 VIEWS LOCM Q9967 [facility] TURNER [phone] 4 [facility] MG/ML INC [place] [address] JOHNN[facility] TURNER ABDOMEN & 4 [facility] PELVIS INC INC W/[place] [address] [facility] UREA 4 [facility] NITROGEN INC INC QUANTITAT [place] CREATININ 49579 [facility] E BLOOD 4 [facility] INC INC COMPREHEN 54539 [facility] SIVE 4 [facility] METABOLIC INC INC PANEL BLOOD 84279 [facility] CASSIDY COUNT 4 [facility] CHR COMPLETE INC AUTO&AUTO DIFRNTL WBC PROTHROMB 70867 [facility] TURNER IN TIME 4 [facility] INC INC FLUORESCE 94184 [facility] TUR[facility] NT 4 [facility] NONNFCT INC INC AGT ANTB TITER EA ANTIBODY RADEX 69197 [facility] SEBASTIAN HAND 4 ANTHONY ANTHONY MINIMUM 3 VIEWS RADEX 12278 [facility] SEBASTIAN WRIST 4 ANTHONY ANTHONY COMPLETE MINIMUM 3 VIEWS RADEX 81437 [facility]NER WRIST 4 [facility] COMPLETE INC INC MINIMUM 3 VIEWS RADEX 17859 [facility]NER HAND 4 [facility] MINIMUM 3 INC INC VIEWS RADEX 32811 [facility] TURNER FOREARM 2 4 [facility] VIEWS INC INC RADIOLOGI 39414 [facility] C 4 [facility] EXAMINATI INC INC ON KNEE 1/2 VIEWS BLOOD 88671 [facility]URNER COUNT 3 [facility] COMPLETE INC INC AUTO&AUTO DIFRNTL WBC COMPREHEN 33888 [facility] SIVE 3 [facility] METABOLIC INC INC PANEL RADEX 38850 ALEKS FINK WRIST 2 DON DON COMPLETE MINIMUM 3 VIEWS FLUORESCE 67275 [facility]NER NT 2 [facility] NONNFCT INC INC AGT ANTB TITER EA ANTIBODY COMPREHEN 16466 [facility] SIVE 2 [facility] [place] [address] PATHOLOGY DOROTHY SURG 2 & KIM PATHOLOGY CYTOLOGY LAB GROSS&RICARDO ROSCOPIC EXAM SPCL STN 25603 PATHOLOGY DOROTHY 2 I&R 2 & KIM EXCPT CYTOLOGY MICROORG/ LAB ENZYME/[place] [address] [facility] TURNER THYROID 2 [facility] STIMULATI INC INC NG HORMONE TSH COMPREHEN 92529 [facility]URNER SIVE 2 [facility] METABOLIC INC INC PANEL COMPREHEN 47451 [facility]NER SIVE 1 [facility] METABOLIC INC INC PANEL BLOOD 87864 [facility] TURNER COUNT 1 [facility] COMPLETE INC INC AUTO&[place] [address] [place] SE[facility] ABDOMINAL 1 MEDICAL ANTHONY REAL IMAGING TIME ASS W/IMAGE DOCUMENTA TION MICROSOMA 32051 [facility] L 1 [facility] ANTIBODIE INC INC S EACH HEPATITIS 47900 [facility] TURNER B CORE 1 [facility] ANTIBODY INC INC HBCAB TOTAL HEPATITIS 85948 [facility]URNER B SURF 1 [facility] [address] [facility] TURNER HEPATITIS 1 [facility] [place] [address] [facility] TURNER THYROID 1 [facility] STIMULATI INC INC NG HORMONE TSH ANTINUCLE 59107 [facility] TURNER AR 1 [facility] ANTIBODIE INC INC S GUSTAVO FLUORESCE 86499 [facility] T[facility]NER NT 1 [facility] NONNFCT INC INC AGT ANTB TITER EA ANTIBODY HEPATITIS 62427 [facility]NER C 1 [facility] ANTIBODY INC INC ALPHA-1-A 79046 [facility] T[facility] NTITRYPSI 1 [facility] N TOTAL INC INC ALPHA-1-A 64699 [facility] TURNER NTITRYPSI 1 [facility] [place] [address] [facility] TURNER GAMMAGLOB 1 [facility] ULIN IGA INC INC IGD IGG IGM EACH IRON 41131 [facility] T[facility]NER BINDING 1 [facility] [place] [address] [facility] TURNER GAMMAGLOB 1 [facility] [place] [address] [facility] TUR[facility] IRON 1 [facility] INC INC CERULOPLA 09117 [facility] TURNER SMIN 1 [place] [address] [facility] TURNER FERRITIN 1 [facility] INC INC ESOPHAGOG 4516 [facility] T[facility]NER ASTRODUOD 1 [facility] ENOSCOPY [place] [address] [facility] SURG 1 ANGELIA & OUSMANE PATHOLOGY DUBILIER GROSS&RICARDO ROSCOPIC EXAM SPECIAL 10718 [facility] STAIN 1 ANGELIA & OUSMANE GROUP 1 DUBILIER MICROORGA NISMS I&R SPCL STN 37060 [facility]MONTE 2 I&R 1 ANGELIA & OUSMANE EXCPT DUBILIER MICROORG/ ENZYME/IM CYT EGD 87572 [facility] TRANSORAL 1 [facility] BIOPSY [place] SINGLE/[place] [address] [facility] TURNER INFUSION 1 [facility] THERAPY INC INC PROPHYLAX IS/DX EA HOUR ANES 60409 [facility] UPP[facility] 1 ANESTH ENDOSCOPY OF THE PROXIMAL BLUE TO DUODENUM BLOOD 01637 [facility]NER COUNT 1 [facility] COMPLETE INC INC AUTO&[place] [address] [facility] TURNER THYROID 1 [facility] STIMULATI INC INC NG HORMONE TSH COMPREHEN 11157 [facility]NER SIVE 1 [facility] [address] J[facility] TURNER AMYLASE 1 [place] [address] [facility] TURNER LIPASE 1 [facility] INC INC CREATINE 41247 [facility] TURNER KINASE MB 1 [facility] FRACTION INC INC ONLY CREATINE 58619 [facility] T[facility]NER KINASE 1 [facility] TOTAL INC INC BASIC 92416 [facility] TURNER METABOLIC 1 [facility] [place] [address] [facility] TURNER TROPONIN 1 [facility] QUANTITAT INC INC [place] BLOOD 22343 [facility] T[facility]NER COUNT 1 [facility] COMPLETE INC INC AUTO&AUTO DIFRNTL WBC RADIOLOGI 48131 [place] MARIELLA C 1 MEDICAL JACEK EXAMINATI IMAGING ON CHEST ASS SINGLE VIEW FRONTAL ECG 86591 J[facility]NNY LIU ROUTINE 1 [facility] W/LEAST P 12 LDS I&R ONLY ECG 67458 JOHNNY JOHNNY ROUTINE 1 [facility] ECG INC INC W/LEAST 12 LDS TRCG ONLY W/O I&R Encounters Encounter Start End Date Code Location Performer Type Date HOSPITAL [facility] - 7 7 [facility] T [facility] - 7 7 [facility] OUTPATIEN INC T HOSPITAL KAREN - 7 7 N OUTPATIEN COMMUNTIY T HOSPITA EMERGENCY 83120 FABIAN MUKHERJEE 7 7 PHYSICIAN JR GARCIA S, [facility] T VISIT HIGH/URGE NT SEVERITY EMERGENCY 09377 JOHNNY 7 7 [facility] DEPARTMEN INC T VISIT MODERATE SEVERITY HOSPITAL J[facility]Y - 7 7 [facility] OUTPATIEN [facility] JOHNNY - 7 7 [facility]PATI[facility] T OFFICE 68053 [place] [facility] OUT[facility] 7 7 [place] T VISIT ORTHOPAED [address] [facility] OUTPATIEN 7 7 PHYSICIAN T VISIT S GROUP 15 MINUTES HOSPITAL [facility] - 7 7 [facility] JOHNNY - 6 6 [facility] JOHNNY - 6 6 [facility]PATI[facility] JOHNNY - 6 6 [facility] JOHNNY - 6 6 [facility]PATI[facility] JOHNNY - 6 6 [facility]PATIEN [facility] - 6 6 N OUTPATIEN COMMUNY T [facility] JOHNNY - 6 6 [facility] OUTPATIEN INC T OFFICE 65083 JUSTIN GARNERT OUTPATIEN 6 6 T VISIT ORTHOPAED 15 ICS PSC MINUTES OFFICE 57301 [facility]ORT OUTPATIEN 6 6 PHYSICIAN RICARDO T VISIT S GROUP 15 MINUTES HOSPITAL JOHNNY - 6 6 [facility] OUTPATIEN [facility] T OFFICE 76645 [facility] COM[facility]ORT OUTPATIEN 6 6 PHYSICIAN RICARDO T VISIT S GROUP 10 MINUTES HOSPITAL J[facility]Y - 6 6 [facility] OUTPATIEN INC T OFFICE 88090 JUSTIN GARNERT OUTPATIEN 6 6 T VISIT ORTHOPAED 15 ICS PSC MINUTES OFFICE 15767 JUSTIN LADD OUTPATIEN 6 6 T VISIT ORTHOPAED 15 ICS PSC MINUTES OFFICE 17239 [facility]ORT OUTPATIEN 6 6 PHYSICIAN RICARDO T VISIT S GROUP 15 MINUTES EMERGENCY 55515 FABIAN MUKHERJEE, 6 6 PHYSICIAN JR MATTI GARCIA S, PLLC T VISIT MODERATE SEVERITY OFFICE 86494 [facility] OUTPATIEN 6 6 C VANESA T VISIT CONSULTAN 15 TS MINUTES HOSPITAL [facility] - 6 6 [facility] OUTPATIEN INC T OFFICE 65680 [facility] OUTPATIEN 6 6 C VANESA T VISIT CONSULTAN [address]ES [address] [facility] FRYMAN OUTPATIEN 6 6 PHYSICIAN EUG T VISIT S GROUP 15 MINUTES HOSPITAL [facility] - 6 6 [facility] OUTPATIEN [facility] - 5 5 N OUTPATIEN COMMUNTIY T HOSPITA OFFICE 20491 [facility]ORT OUTPATIEN 5 5 PHYSICIAN RICARDO T VISIT S GROUP 10 MINUTES HOSPITAL [facility] - 5 5 [facility] OUTPATIEN INC T OFFICE 92092 [facility] OUTPATIEN 5 5 [place] T VISIT ORTHOPAED 15 ICS PLC MINUTES HOSPITAL [facility]Y - 5 5 [facility] OUTPATIEN INC T OFFICE 05317 [facility] OUTPATIEN 5 5 [place] T VISIT ORTHOPAED 15 ICS PLC MINUTES [facility]OSPITAL [facility] - 5 5 [facility] N OUTPATIEN COMMUNTIY T HOSPITA OFFICE 93192 [facility] TRA OUTPATIEN 5 5 [place] T VISIT ORTHOPAED 15 ICS PLC MINUTES HOSPITAL UNIVERS[facility] - 5 5 Y OUTPATI HOSPITAL T EMERGENCY 54014 FABIAN STALLINGS 5 5 PHYSICIAN U BORA GARCIA S, PLLC T VISIT HIGH/URGE NT SEVERITY OFFICE 90115 [facility] OUTPATIEN 5 5 C VANESA T VISIT CONSULTAN 15 TS MINUTES OFFICE 20463 [facility] TRA CONSULTAT 5 5 [place] ION ORTHOPAED NEW/ESTAB ICS PLC PATIENT [address] [facility] COM[facility]ORT OUTPATIEN 5 5 PHYSICIAN RICARDO T VISIT S GROUP 15 MINUTES HOSPITAL [facility] - 5 5 [facility] OUTPATIEN INC T OFFICE 79689 [facility]ORT OUTPATIEN 4 4 PHYSICIAN RICARDO T VISIT S GROUP 10 MINUTES OFFICE 98840 [facility] OUTPATIEN 4 4 C VANESA T NEW 30 CONSULTAN MINUTES TS OFFICE 64175 [facility] BASILIO JR OUTPATIEN 4 4 PHYSICIAN MACARIO T VISIT S GROUP 15 MINUTES HOSPITAL [facility] - 4 4 [facility] OUTPATIEN INC T OFFICE 52818 ALLRAN JR ALLRAN JR CONSULTAT 4 4 MACARIO MACARIO ION NEW/ESTAB PATIENT 60 MIN OFFICE 70542 [facility] OUTPATIEN 4 4 T VISIT 25 MINUTES HOSPITAL [facility] - 4 4 [facility] OUTPATIEN INC T OFFICE 48104 [facility] COMFORT OUTPATIEN 4 4 PHYSICIAN RICARDO T VISIT S GROUP 10 MINUTES HOSPITAL [facility] - 4 4 [facility] OUTPATIEN INC T OFFICE 43441 [facility] OUTPATIEN 4 4 RICARDO RICARDO T VISIT 10 MINUTES HOSPITAL [facility] - 4 4 [facility] OUTPATIEN INC T OFFICE 08275 PETTEY PETTEY OUTPATIEN 4 4 JAM JAM T NEW 45 MINUTES HOSPITAL [facility] - 3 3 [facility] OUTPATIEN INC T OFFICE 01423 [facility] OUTPATIEN 3 3 T VISIT 25 MINUTES OFFICE 05475 ALEKS FINK OUTPATIEN 2 2 DON DON T VISIT 15 MINUTES OFFICE 81418 [facility] OUTPATIEN 2 2 T VISIT 15 MINUTES OFFICE 20830 ALEKS FINK OUTPATIEN 2 2 DON DON T VISIT 25 MINUTES HOSPITAL [facility] - 2 2 [facility] OUTPATIEN INC T OFFICE 04198 [facility] OUTPATIEN 2 2 T VISIT 15 MINUTES OFFICE 90189 [place] OUTPATIEN 2 2 MEDICAL T VISIT SERV 25 FOUNDATIO MINUTES [facility] JOHNNY - [address] [facility] T OFFICE 96598 SHIVAM [facility]ADE [facility] OUTPATIEN 1 1 MEDICAL T VISIT SERV 25 FOUNDATIO MINUTES [facility] JOHNNY - 1 1 [facility] OUTPATIEN [facility] JOHNNY - [address] [facility] T OFFICE 36393 [place] [facility] [place] OUTPATIEN 1 1 MEDICAL T VISIT SERV 40 FOUNDATIO MINUTES [facility] JOHNNY - 1 1 [facility] OUTPATIEN [facility] JOHNNY - 1 1 [facility] OUTPATIEN INC T OFFICE 83332 [place] [facility] [place] CONSULTAT 1 1 MEDICAL ION SERV NEW/ESTAB FOUNDATIO PATIENT 60 MIN OFFICE 78316 [facility] FINK OUTPATIEN 1 1 DON DON T VISIT 15 MINUTES OFFICE 64354 [facility] OUTPATIEN 1 1 DON DON T VISIT 15 MINUTES [facility]OSPITAL [facility] - 1 1 [facility] OUTPATIEN INC T EMERGENCY 04986 DOROTHY MOYER DEPT 1 1 EMERGENCY RICARDO VISIT SERVICES HIGH SEVERITY& THREAT FUN EMERGENCY 19613 JOHNNY 1 1 [facility] DEPARTMEN INC T VISIT HIGH/URGE NT SEVERITY
--- OUTSIDE RECORDS SUMMARY | 2016-12-14 13:29 | External Medical Summary Rpt ---
Author Author , Organization [employer] Address Unknown Phone Unavailable Care Team Providers Care Vice President Of Sales Name Role Phone ALLRAN MACARIO, ALLRAN Unavailable Unavailable JR MACARIO BEINEKE BORA, BEINEKE Unavailable Unavailable BORA BESSON, BESSON Unavailable Unavailable BESSON [facility], BESSON Unavailable Unavailable [facility] Unavailable [facility], [facility] SILVA ALL, SILVA ALL Unavailable Unavailable [facility] Unavailable Unavailable SERVICE, [facility] Unavailable Unavailable SERVICE, [facility] Unavailable Unavailable [facility], [facility] Unavailable Unavailable [facility], [facility] Unavailable Unavailable [facility], [facility]EL[facility] & Unavailable Unavailable DUBILIER, [facility], Unavailable [facility] SEBASTIAN ANTHONY, Unavailable Unavailable SEBASTIAN ANTHONY SEBASTIAN ANTHONY, Unavailable Unavailable SEBASTIAN ANTHONY [facility] Unavailable Unavailable [place], MARIA FARERI [facility] [place] [facility], [facility]available Unavailable LLC, [facility], [facility] FRYMAN EUG, FRYMAN Unavailable Unavailable EUG JR YAZ, YAZ, Unavailable Unavailable JR MATTI ESTEVEZ, Unavailable Unavailable JR MATTI MUKHERJEE COMFORT, COMFORT Unavailable Unavailable COMFORT RICARDO, COMFORT Unavailable Unavailable RICARDO COMFORT RICARDO, COMFORT Unavailable Unavailable RICARDO [facility] Un[facility] Un[facility], [facility] LEVY, LEVY Unavailable Unavailable LEVY RICARDO, LEVY Unavailable Unavailable RICARDO PREETHI RHO, PREETHI Unavailable Unavailable RHO [facility]OHNN[facility] Unavailable Unavailable INC, [facility] Unavailable Unavailable HOSPITAL P, [facility], Unavailable Unavailable [facility] CRISOSTOMO, CRISOSTOMO Unavailable Unavailable CRISOSTOMO TRA, CRISOSTOMO TRA Unavailable Unavailable WILBERTO LADD Unavailable Unavailable [facility] Unavailable Unavailable GROUP PS, [facility], [facility] Un[facility], [facility] Un[facility], [facility] DELIO DWI, DELIO DWI Unavailable Unavailable DELIO JR DWI, DELIO Unavailable Unavailable JR DWI ALMONTE OUSMANE, ALMONTE Unavailable Unavailable OUSMANE DOROTHY KIM, Unavailable Unavailable DOROTHY KIM [facility] Unavailable Unavailable SERVICES, [facility] MARIELLA JACEK, MARIELLA Unavailable Unavailable JACEK FINK JUS, Unavailable Unavailable FINK JUS WALL DANNA, WALL DANNA Unavailable [facility]available [facility] Un[facility], [facility], [facility] Unavailable Unavailable CONSULTANTS, [facility], [facility] Unavailable Unavailable LABS, LLC [facility], [...] FINK DON ROBYN ROMEO, ROBYN Unavailable Unavailable OUSMANE [facility], Unavailable Unavailable [facility] NATANAEL ALEXIS, NATANAEL Unavailable Unavailable VANESA [facility] # Unavailable Unavailable [id number], [facility] # [id number] Purpose Continuity of Care Document - 08-17-2010 through 2016 Problems Code Diagnosis DOS Provider Status [id number] OTHER LONG 11-04-2016 [facility] CURRENT INC DRUG THERAPY [id number] UNS TEAR 09-09-2016 [place] UNS ANESTHESIA [facility] GROUP PS CURR INJ LT KNEE INIT ENC [id number] OTH TEAR 09-09-2016 [facility] LAT MENISC COMMUNTI CURRNT INJ HOSPITA LT KNEE INIT ENC Z720 TOBACCO USE 09-09-2016 [facility] K219 GASTRO-ESOP 09-06-2016 [facility]NNY H RE[facility]UX [facility] DISEASE INC WITHOUT ESOPHAGITIS M1612 UNILATERAL 09-06-2016 [place] [facility]IMARY [facility] OSTEOARTHRI IMAGING ASS TIS LEFT HIP [id number] PAIN IN 09-06-2016 [facility] X06106 PAIN IN 09-06-2016 [facility] I90261 PAIN IN 09-06-2016 [facility] LEFT KNEE PHYSICIANS, [facility] M461 SACROILIITI 09-06-2016 [place] S NOT MEDICAL ELSEWHERE IMAGING ASS CLASSIFIED 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-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 M5442 LUMBAGO 09-06-2016 [facility] WITH [facility]YSICIANS, [facility] LEFT SIDE M545 LOW BACK 09-06-2016 [place] PAIN MEDICAL IMAGING ASS X61551 PAIN IN 09-06-2016 [facility] SERVICE M8588 OTH SPEC 09-06-2016 [place] D/O BONE MEDICAL DENSITY IMAGING ASS STRUCTURE OT SITE R200 ANESTHESIA 09-06-2016 [facility] OF SKIN AMBULANCE SERVICE [id number] UNS INJURY 09-06-2016 [place] LT LOWER MEDICAL LEG INITIAL IMAGING ASS ENCOUNTER J449 CHRONIC 09-04-2016 [place] OBSTRUCTIVE MEDICAL PULMONARY IMAGING ASS DISEASE UNS R911 SOLITARY 09-04-2016 [place] PULMONARY MEDICAL NODULE IMAGING ASS J67026 ENCOUNTER 09-04-2016 [facility] P AL CARIOVASCUL AR EXAM S28330 ENCOUNTER 09-04-2016 JOHNNY [facility] P AL LABORATORY EXAM M98912H BUCKET-HAND 08-27-2016 [facility] TEAR LAT [place] MENSCUS [facility] CURR LT KNEE INIT R296 REPEATED 06-19-2016 [facility] [place] [facility] [id number] OTH TEAR 05-02-2016 [facility] LAT [facility]ISC [facility] CURRNT INJ INC LT KNEE SBSQT ENC V08233 DERANG POST 03-25-2016 [facility] MENISC OLD HOSPITA TEAR/INJ LT KNEE O21301 DERANG OTH 03-25-2016 [facility] LAT MENISC COMMUNTIY D/T OLD HOSPITA TEAR/INJ LT KNEE Q686 DISCOID 03-25-2016 [facility] [id number] OTH TEAR 03-25-2016 [facility] MENISCUS S PSC CURR INJ LT KNEE INIT ENC H28715 PAIN IN 03-20-2016 JOHNNY UNSPECIFIED [facility] P R197 DIARRHEA 03-20-2016 [facility] UNSPECIFIED [facility] H[facility] INC U90468 ENCOUNTER 03-20-2016 JOHNNY FOR [facility] P AL RESPIRATORY EXAM [id number] OTH TEAR 03-05-2016 [facility] MED [facility]THOP[facility] MENISCUS S PSC CURR INJ LT KNEE SBSQT ENC M1990 UNSPECIFIED 02-24-2016 [facility] OSTEOARTHRI GROUP TIS UNSPECIFIED SITE M5416 RADICULOPAT 02-24-2016 [facility] LUMBAR PHYSICIANS REGION GROUP [id number] FRACTURE 12-04-2015 [facility] ONE RIB UNS PHYSICIANS SIDE GROUP INITIAL ENC CLOSED FX M2392 UNSPECIFIED 11-23-2015 [facility] INTERNAL [facility], DERANGEMENT PLLC OF LEFT KNEE R0781 PLEURODYNIA 11-23-2015 [place] [facility] F15481H CONTUSION 11-23-2015 [facility] RT FRONT PHYSICIANS, WALL THORAX PLLC INITIAL ENCOUNTER U1504NP MULTIPLE FX 11-23-2015 [place] RIBS RT MEDICAL SIDE INIT IMAGING ASS ENC CLOS FRACTURE 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 M5135 OT 11-18-[address] [facility] DEGEN THORACOLUMB AR RGN M5136 OT 11-18-[address] [facility] DEGEN LUMBAR REGION M5137 OT 11-18-[address] [facility] RAL DIS[facility] LLC DEGEN LUMBOSACRAL REGION 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 UPPER LIMB G5602 CARPAL 07-10-2015 [facility] [place] TUN[facility]EL [facility]OP[facility]EDIC SYNDROME S PLC LEFT UPPER LIMB I10 ESSENTIAL 07-10-2015 [facility] PRIMARY COMMUNTIY HYPERTENSIO HOSPITA N M654 RADIAL 07-10-2015 [facility] STYLOID COMMUNTIY TENOSYNOVIT HOSPITA IS DE QUERVAIN G5600 CARPAL 06-14-2015 [facility] TUNNEL PHYSICIANS SYNDROME GROUP UNSPECIFIED UPPER LIMB R05 COUGH 06-14-2015 [place] [facility] P87564 ENCOUNTER 06-14-2015 J[facility]NN[facility] FOR OTHER [facility] P AL EXAMINATION 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 CERV REGION L15383 PAIN IN 05-16-2015 [facility] [place] LEFT WRIST ORTHOPAEDIC S PLC M79A12 NONTRAUMATI 05-06-2015 JOHNNY C [facility] HOS[facility] COMPARTMENT INC SYNDROME LT UP EXTREM 67936 HEMANGIOMA 04-03-2015 [facility] [place] OF SKIN AND ORTHOPAEDIC S PLC SUBCUTANEOU S TISSUE 58806 OTHER 04-03-2015 [place] SYMPTOMS ANESTHESIA REFERABLE GROUP PS TO FOREARM JOINT 35217 RADIAL 04-03-2015 [facility] [place] STYLOID ORTHOPAEDIC TENOSYNOVIT S PLC IS 7822 LOCALIZED 04-03-2015 [facility], SUPERFICIAL LLC [place] 40910 NEOPLASMS 03-28-2015 [facility] UNSPECIFIED COMMUNTIY NATURE OT HOSPITA SPECIFIED SITES V7283 OTHER 03-28-2015 [facility] SPECIFIED COMMUNTIY PRE-OPERATI HOSPITA VE EXAMINATION 3540 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 [facility] [place]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 [facility]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 94471 OSTEOARTHRO 02-20-2015 [place] [facility] SIS UNSPEC SERV WHETHER FOUNDATION GEN/LOCALIZ ED HAND 13620 PAIN IN 02-20-2015 [facility] FOREARM 48090 LOSS OF 02-20-2015 [facility] 69772 PAIN IN 02-03-2015 [facility] MEDICAL PELVIC IMAGING ASS REGION AND THIGH 07229 CONTUSION 02-03-2015 [facility] OF [facility]TOCK PHYSICIANS, [facility] 98546 POSTLAMINEC 01-16-2015 [facility] SYNDROME LUMBAR REGION 42367 PAIN IN 01-07-2015 [facility] JOINT, SITE PHYSICIANS GROUP UNSPECIFIED 7242 LUMBAGO 05-29-2014 [facility] 63547 PRIMARY LOC 04-25-2014 [facility] OSTEOARTHRO SIS PELVIC REGION&THIG H 7213 LUMBOSACRAL 04-25-2014 [facility] SPONDYLOSIS WITHOUT MYELOPATHY 23407 ABDOMINAL 04-11-2014 [facility] PAIN RIGHT PHYSICIANS LOWER GROUP QUADRANT 75454 ABDOMINAL 04-04-2014 [facility] PAIN, [facility] UNSPECIFIED INC SITE 98240 ESOPHAGEAL 03-12-2014 [facility] REFLUX 5718 OTHER 03-12-2014 [facility] CHRONIC NONALCOHOLI C LIVER DISEASE 7906 OTHER 03-12-2014 [facility] ABNORMAL BLOOD CHEMISTRY 88792 OTHER 02-20-2014 [facility] SYMPTOMS PHYSICIANS INVOLVING GROUP URINARY SYSTEM 50858 PAIN IN 12-15-2013 [facility] JOINT, HAND MEM [facility]OS[facility] INC 58111 OSTEOARTHRO 12-12-2013 [facility] RICARDO S UNSPEC WHETHER GEN/LOC UNSPEC SITE 9592 INJURY 12-12-2013 COMFORT RICARDO OTHER&UNSPE CIFIED SHOULDER&UP PER ARM 7177 CHONDROMALA 10-26-2013 PETALLEN ALLEN TOBIAS OF [place] 84874 PAIN IN 10-26-2013 J[facility]NNY JOINT, [facility] LOWER LEG INC 7282 MUSCULAR 10-26-2013 PETTELeslye ALLEN WASTING AND DISUSE ATROPHY NEC 7295 PAIN IN 10-26-2013 [facility] SOFT ANTHONY TISSUES OF LIMB E8889 UNSPECIFIED 10-26-2013 SEBASTIAN FALL ANTHONY V1551 PERSONAL 10-26-2013 VALDEMAR ALLEN HISTORY OF TRAUMATIC FRACTURE 7948 NONSPECIFIC 05-08-2013 [facility]NN[facility] ABNORMAL [facility] RESULTS INC LIVR FUNCTION STUDY 7871 HEARTBURN 03-27-2013 [facility] [place] 63923 CLOSED 04-27-2012 [facility] FRACTURE OF DON UNSPECIFIED PART OF RADIUS 7905 OTHER 04-25-2012 [facility] NONSPECIFIC ABNORMAL SERUM ENZYME LEVELS 55289 OTHER 11-17-2011 PATHOLOGY & CHRONIC CYTOLOGY HEPATITIS LAB 98140 THYROTOX 08-31-2011 [facility] W/O [facility] GOITER/OTH INC CAUSE W/O CRISIS 71082 DIARRHEA 04-17-2011 [place] [facility] 66707 ABDOMINAL 04-13-2011 [place] [facility] PA[facility], SERV EPIGASTRIC FOUNDAT[facility] 31554 REFLUX 03-23-2011 [place] [facility] ESOPHAGITIS SERV FOUNDAT[facility] 69023 OTHER SPEC 03-23-2011 [facility] GASTRITIS ANGELIA & WITHOUT DUBILIER MENTION HEMORRHAGE 5379 UNSPECIFIED 03-23-2011 [place] [facility] DISORDER SERV OF STOMACH FOUNDATIO AND DUODENUM 7831 ABNORMAL 03-10-2011 [facility] WEIGHT GAIN [facility] INC 92356 CHEST PAIN 08-17-2010 [place] 89933 OTHER CHEST 08-17-2010 [facility] P Medications Na ND Rx Da Fi Fi Am Da Di Ph RX Ph St me C No te ll ll ou ys ag ar # ys at rm s nt no ma ic us Or Da si cy ia de te s n re d OM 62 04 05 30 30 00 EA Ac EP 17 -1 -[address] ti RA 50 4- 2- 00 00 SI ve ZO 13 20 20 48 DE LE 64 17 [address] AR MA 40 CY MG OF CY CA NT PS HI UL AN E A IN C DI 00 04 05 30 30 00 [...] ve LO 37 20 20 48 DE WI 50 17 17 36 AM 1 82 [...] ET NT HI AN A IN C CY 00 04 05 60 30 00 EA Ac CL 37 -1 -[address] ti OB 80 0- 5- 00 00 SI ve EN 75 20 20 48 DE ZA 11 17 17 31 WI 0 35 PH IN AR E MA [...] HI UL AN E A IN C ES 65 03 04 30 30 00 EA Ac CI 86 -1 -[address] ti TA 20 5- 7- 00 00 SI ve LO 37 20 20 47 DE WI 50 17 17 97 AM 1 40 PH AR 20 MA CY MG OF TA CY BL NT ET HI AN A IN C CY 00 03 03 60 30 00 EA Ac CL 37 -0 -[address] ti OB 80 1- 4- 00 00 SI ve EN 75 20 20 47 DE ZA 11 17 17 80 WI 0 32 PH IN AR E MA [...] ET NT HI AN A IN C ES 65 02 03 30 30 00 EA Ac CI 86 -1 -[address] ti TA 20 4- 0- 00 00 SI ve LO 37 20 20 47 DE WI 50 17 17 61 AM 1 26 PH AR 20 MA CY MG OF TA CY BL NT ET HI AN A IN C HY 00 02 03 [address] 60 -1 -[address] ti OC 33 1- 0- 00 00 SI ve OD 89 20 20 47 DE ON 03 17 17 53 -A 2 53 PH CE AR TA MA NJ CY NO PH OF EN CY NT 5- HI 32 AN 5 A IN C OM 62 02 03 [...] 47 DE ZA 11 17 17 49 WI 0 45 PH IN AR E MA 10 CY MG OF CY TA NT BL HI ET AN A IN C OX 65 01 02 12 30 00 EA Ac YC 16 -1 -[address] ti OD 20 2- 7- 00 00 SI ve ON 20 20 20 0 47 DE -A 75 17 17 19 CE 0 73 PH TA AR NJ MA NO CY PH EN OF CY 7. NT 5- HI 32 AN 5 A IN C ES 65 01 02 30 30 00 EA Ac CI 86 -1 -[address] ti TA 20 2- 7- 00 00 SI ve LO 37 20 20 46 DE WI 50 17 17 87 AM 1 03 PH AR 20 MA CY MG OF TA CY BL NT ET HI AN A IN C GA 16 01 [...] AN E A IN C DI 00 01 02 90 30 00 EA Ac AZ 17 -1 -[address] ti EP 23 7- 0- 00 00 SI ve AM 92 20 20 47 DE 5 67 17 17 26 0 86 PH MG AR MA TA CY BL ET OF CY NT HI AN A IN C DI 00 12 01 [...] 87 CE 0 07 PH TA AR NJ MA NO CY PH EN OF CY 7. NT 5- HI 32 AN 5 A IN C ES 65 12 01 30 30 00 EA Ac CI 86 -1 -[address] ti TA 20 3- 3- 00 00 SI ve LO 37 20 20 46 DE WI 50 16 17 87 AM 1 03 [...] OF ET CY NT HI AN A WI 37 08 08 5 60 30 WA [...] OF ET CY NT HI AN A WI 37 08 08 5 60 30 WA 88 PE Ac IL 00 -0 -0 .0 L- 18 NA ti OS 00 2- 2- 00 MA 47 ve EC 45 20 20 RT 2 TRACE 50 11 11 IS OT 4 PH R C AR 20 MA .6 CY # MG 10 TA 05 BL 91 ET WI 37 07 07 5 30 30 CL [...] BL ET CY NT HI AN A WI 00 05 05 [address] Ac OM 78 -2 -[address] 62 EP ti ET 11 0- 0- 00 SI 04 HE ve AMARAL 83 20 20 DE NS ZI 01 11 11 NE 0 PH DO AR N 25 MA R CY MG OF TA BL CY ET NT HI AN A WI 37 04 05 5 30 30 EA [...] OF ET CY NT HI AN A WI 00 05 05 0 [address] Ac OM 78 -0 -[address] 43 EP ti ET 11 6- 6- 00 SI 02 HE ve AMARAL 83 20 20 DE NS ZI 01 11 11 NE 0 PH DO AR N 25 MA R CY MG OF TA BL CY ET NT HI AN A AM 00 04 04 0 20 5 EA 22 No Ac OX 78 -2 -[address] 25 t ti IC 12 5- 5- 00 SI 33 Av ve IL 61 [...] UL CY E NT HI AN A WI 37 04 04 5 30 30 EA [...] 00 EP ti EP 23 6- 6- SI 66 HE ve AM 92 20 [...] DOS Code Location Performer Comment DRUG TEST 56273 [facility] HOON PRSMV 7 [facility] QUAL DIR INC INC OPTICAL OBS PER DAY DRUG TEST 29178 J[facility]NNY TURNER PRSMV 7 [facility] QUAL DIR INC INC OPTICAL OBS PER DAY INJECTION J1100 [facility] 7 N N DEXAMETHO COMMUNTIY COMMUNTIY SONE HOSPITA HOSPITA SODIUM PHOSPHATE 1 MG INJECTION J2001 [facility] 7 N N LIDOCAINE COMMUNTIY COMMUNTIY HCL HOSPITA HOSPITA INTRAVENO US INFUS 10 MG INJECTION J0690 [facility] 7 N N CEFAZOLIN COMMUNTIY COMMUNTIY SODIUM HOSPITA HOSPITA 500 MG INJECTION J2250 [facility] 7 N N MIDAZOLAM COMMUNTIY COMMUNTIY HCL PER HOSPITA HOSPITA 1 MG RINGERS J7120 [facility] LACTATE 7 N N INFUSION COMMUNTIY COMMUNTIY UP TO HOSPITA HOSPITA 1000 CC ANES 07950 [place] LEV[place] OPEN/SURG 7 ANESTHESI A GROUP ARTHROSCO PS PIC PROC KNEE JOINT NOS ARTHRS 80622 [facility] KNE SURG 7 N N W/MENISCE COMMUNTIY COMMUNTIY CTOMY HOSPITA HOSPITA MED/LAT W/SHVG INJECTION J1885 [facility] 7 N N KETOROLAC COMMUNTIY COMMUNTIY HOSPITA HOSPITA TROMETHAM INE PER 15 MG INJECTION J2704 [facility] PROPOFOL 7 N N 10 MG COMMUNTIY COMMUNTIY HOSPITA HOSPITA INJECTION J3010 [facility] 7 N N CITRATE COMMUNTIY COMMUNTIY 0.1 MG HOSPITA HOSPITA RADIOLOGI 95772 [facility] TURNER C 7 [facility] EXAMINATI INC INC ON KNEE 3 VIEWS UNCLASSIF J3490 J[facility] TURNER IED DRUGS 7 [facility] INC INC GROUND A0425 [facility]ANCE PER SERVICE SERVICE STATUTE MILE AMBULANCE A0429 [facility] SERVICE 7 AMBULANCE AMBULANCE BLS SERVICE SERVICE EMERGENCY TRANSPORT CT LUMBAR 62359 JOHNNY TURNER SPINE 7 [facility] W/O INC INC CONTRAST MATERIAL RADEX HIP 30541 [facility] TURNER 7 [facility] UNILATERA INC INC L WITH PELVIS 2-3 VIEWS THER 34443 J[facility]NNY TURNER PROPH/DX 7 [facility] NJX IV INC INC PUSH SINGLE/1S T SBST/DRUG COLLECTIO 53735 J[facility] TURNER N VENOUS 7 [facility] BLOOD INC INC VENIPUNCT URE BLOOD 68218 J[facility]Y TURNER COUNT 7 [facility] COMPLETE INC INC AUTO&AUTO DIFRNTL WBC COMPREHEN 70281 J[facility]Y TURNER SIVE 7 [facility] METABOLIC INC INC PANEL COLLECTIO 31598 J[facility]NNY TURNER N VENOUS 7 [facility] BLOOD INC INC VENIPUNCT URE ECG 58074 JOHNNY JOHNNY ROUTINE 7 [facility] ECG INC INC W/LEAST 12 LDS TRCG ONLY W/O I&R RADIOLOGI 91770 JOHNNY JOHNNY C EXAM 7 [facility]OSP CHEST 2 INC INC VIEWS FRONTAL&L ATERAL ECG 19295 JOHNNY HURTADO ROUTINE 7 [facility] W/LEAST P 12 LDS I&R ONLY BASIC 95740 JOHNNY TURNER METABOLIC 7 [facility] PANEL INC INC CALCIUM TOTAL DRUG TEST 22850 JOHNNY TURNER PRSMV 7 [facility]OS[facility] QUAL DIR INC INC OPTICAL OBS PER DAY DRUG 21326 JOHNNY TURNER SCREENING 7 [facility] HOSP OPIOIDS INC INC & OPIATE ANALOGS 5/MORE MRI ANY 60374 JUSTIN CRISOSTOMO JT LOWER 6 EXTREM ORTHOPAED W/O ICS PSC CONTRAST MATRL DRUG TST G0477 JOHNNY TURNER PRESUMP;C 6 [facility] PBL BEING INC INC READ DC OPT OBV ONLY RADIOLOGI 82185 JUSTIN Walsh 6 EXAMINATI ORTHOPAED ON KNEE 3 ICS PSC VIEWS CANE E0105 KEON HERBERT QUAD/3-WI 6 HOME HOME DIALLO ALL MEDICAL MEDICAL MATL EQUIPME EQUIPME ADJUSTBL/ FIX W/TIPS DRUG TST G0477 JOHNNY TURNER PRESUMP;C 6 [facility]OS[facility] PBL BEING INC INC READ DC OPT OBV ONLY DRUG TST G0477 JOHNNY TURNER PRESUMP;C 6 [facility]OS[facility] PBL BEING INC INC READ DC OPT OBV ONLY THERAPEUT 10986 JOHNNY TURNER IC PX 1/> 6 [facility] AREAS INC INC EACH 15 MIN EXERCISES THERAPEUT 10-05-201 64023 JOHNNY TURNER IC PX 1/> 6 [facility] HOSP AREAS INC INC EACH 15 MIN EXERCISES PHYSICAL 36255 JOHNNY TURNER THERAPY 6 [facility] HOSP EVALUATIO INC INC N ANES 63999 JULIANE LEVY OPEN/SURG 6 ANESTHESI RICARDO A GROUP ARTHROSCO PS PIC PROC KNEE JOINT NOS ARTHRS 95769 [facility] KNEE 6 N N W/MENISCE COMMUNTIY COMMUNTIY CTOMY HOSPITA HOSPITA MED&LAT W/SHAVING INJECTION J2704 [facility] PROPOFOL 6 N N 10 MG COMMUNTIY COMMUNTIY HOSPITA HOSPITA INJECTION J3010 [facility] 6 N N CITRATE COMMUNTIY COMMUNTIY 0.1 MG HOSPITA HOSPITA INJECTION J1100 [facility] 6 N N DEXAMETHO COMMUNTIY COMMUNTIY SONE HOSPITA HOSPITA SODIUM PHOSPHATE 1 MG INJECTION J2270 [facility] MORPHINE 6 N N SULFATE COMMUNTIY COMMUNTIY UP TO 10 HOSPITA HOSPITA MG INJECTION J0690 [facility] 6 N N CEFAZOLIN COMMUNTIY COMMUNTIY SODIUM HOSPITA HOSPITA 500 MG RINGERS J7120 [facility] LACTATE 6 N N INFUSION COMMUNTIY COMMUNTIY UP TO HOSPITA HOSPITA 1000 CC BASIC 15022 JOHNNY TURNER METABOLIC 6 [facility] HOSP PANEL INC INC CALCIUM TOTAL RADIOLOGI 94134 JOHNNY TURNER C EXAM 6 [facility] HOSP CHEST 2 INC INC VIEWS FRONTAL&L ATERAL ECG 22203 JOHNNY HURTADO ROUTINE 6 [facility] W/LEAST P 12 LDS I&R ONLY BLOOD 04041 JOHNNY TURNER COUNT 6 [facility] HOSP COMPLETE INC INC AUTO&AUTO DIFRNTL WBC ECG 04582 JOHNNY TURNER ROUTINE 6 [facility]OS[facility] ECG INC INC W/LEAST 12 LDS TRCG ONLY W/O I&R COLLECTIO 80993 JOHNNY TURNER N VENOUS 6 [facility] BLOOD INC INC VENIPUNCT URE RADIOLOGI 02781 JULIANE SILVA ALL C 6 MEDICAL EXAMINATI IMAGING ON CHEST ASS SINGLE VIEW FRONTAL DRUG TST G0477 JOHNNY TURNER PRESUMP;C 6 [facility]OS[facility] PBL BEING INC INC READ DC OPT OBV ONLY DRUG TST G0477 JOHNNY TURNER PRESUMP;C 6 [facility]OS[facility] PBL BEING INC INC READ DC OPT OBV ONLY ARTHROCEN 79108 JUSTIN SANCHEZIS 6 ASPIR&/IN ORTHOPAED J MAJOR ICS PSC JT/BURSA W/O US MRI ANY 25540 JUSTIN CRISOSTOMO TRA JT LOWER 6 EXTREM ORTHOPAED W/O ICS PSC CONTRAST MATRL RADIOLOGI 31810 JUSTIN LADD C 6 EXAMINATI ORTHOPAED ON KNEE ICS PSC 1/2 VIEWS RADEX 82389 JULIANE SILVA ALL RIBS UNI 6 MEDICAL W/POSTERO IMAGING ANT CH ASS MINIMUM 3 VIEWS RADIOLOGI 01293 JULIANE SILVA ALL C 6 MEDICAL EXAMINATI IMAGING ON KNEE ASS 1/2 VIEWS LUMB L0642 KEON KEON ORTHOS 6 [facility] RIGD EQUIPME EQUIPME ANT POST PANELS MRI 39275 SHARON HERRERA SPINAL [address] [facility] [facility] MRI [facility] LUMBAR W/O CONTRAST MATERIAL DRUG TST G0477 JOHNNY TURNER PRESUMP;C 6 [facility] INC INC READ DC OPT OBV ONLY RADEX 07914 ORTHOPEDI SANTOYO SPINE 6 C VANESA LUMBOSACR CONSULTAN AL 2/3 TS VIEWS DRUG TST G0477 JOHNNY TURNER PRESUMP;C 6 [facility] INC READ DC OPT OBV ONLY ANES [id number] [facility] N[facility] 5 ANESTHESI PRASHANT MUSCLE A GROUP TDN PS FASCIA&BU RSA FOREARM WRIST INJECTION J3010 [facility] 5 N N [place] COMMUNTIY COMMUNTIY 0.1 MG HOSPITA HOSPITA INJECTION J2704 [facility] PROPOFOL 5 N N 10 MG COMMUNTIY COMMUNTIY HOSPITA HOSPITA INJECTION J1885 [facility] 5 N N KETOROLAC COMMUNTIY COMMUNTIY HOSPITA HOSPITA TROMETHAM INE PER 15 MG NEUROPLAS 93756 [facility] CRISOSTOMO TRA TY 5 [place] &/TRANSPO ORTHOPAED S MEDIAN ICS PLC NRV CARPAL TUNNE INJECTION J1100 [facility] 5 N N DEXAMETHO COMMUNTIY COMMUNTIY SONE HOSPITA HOSPITA SODIUM PHOSPHATE 1 MG RINGERS J7120 [facility] LACTATE 5 N N INFUSION COMMUNTIY COMMUNTIY UP TO HOSPITA HOSPITA 1000 CC INJECTION J2001 [facility] 5 N N LIDOCAINE COMMUNTIY COMMUNTIY HCL HOSPITA HOSPITA INTRAVENO US INFUS 10 MG INJECTION J0690 [facility] 5 N TESTING, [facility] SODIUM HOSPITA 500 MG INJECTION J2250 [facility] 5 N N [place] COMMUNTIY COMMUNTIY HCL PER HOSPITA HOSPITA 1 MG INCISION 05926 [facility] CRISOSTOMO TRA EXTENSOR 5 [place] [facility] WRIST RADIOLOGI 81477 JOHNNY TURNER C EXAM 5 [facility] CHEST 2 INC INC VIEWS FRONTAL&L ATERAL BASIC 47756 JOHNNY TURNER METABOLIC 5 [facility] PANEL INC INC CALCIUM TOTAL BLOOD 50814 JOHNNY TURNER COUNT 5 [facility] COMPLETE INC INC AUTO&AUTO DIFRNTL WBC ECG 62542 JOHNNY KEBEDE JR ROUTINE 5 [facility] W/LEAST P 12 LDS I&R ONLY ECG 19094 JOHNNY TURNER ROUTINE 5 [facility] ECG INC INC W/LEAST 12 LDS TRCG ONLY W/O I&R COLLECTIO 47385 JOHNNY TURNER N VENOUS 5 [facility] BLOOD INC INC VENIPUNCT URE PHYSICAL 16810 JOHNNY TURNER THERAPY 5 [facility] EVALUATIO INC INC N THERAPEUT 57414 JOHNNY TURNER IC PX 1/> 5 [facility] AREAS INC INC EACH 15 MIN EXERCISES MANUAL 30210 JOHNNY TURNER THERAPY 5 [facility] TQS 1/> INC INC REGIONS EACH 15 MINUTES MANUAL 98389 JOHNNY TURNER THERAPY 5 [facility] TQS 1/> INC INC REGIONS EACH 15 MINUTES THERAPEUT 56132 JOHNNY TURNER IC PX 1/> 5 [facility] AREAS INC INC EACH 15 MIN EXERCISES THERAPEUT 11266 JOHNNY TURNER IC PX 1/> 5 [facility] AREAS INC INC EACH 15 MIN EXERCISES MANUAL 22661 [facility]AP[facility] 5 [facility] TQS 1/> INC INC REGIONS EACH 15 MINUTES OCCUPATIO 32602 [facility] NAL 5 [facility] THERAPY INC INC EVALUATIO N ANES 96328 AMANDALeslye ROBYN INTEG 5 ANESTHESI OUSMANE EXTREMITI A GROUP ES ANT PS TRUN[place] & [place] [address] P&C LABS, [place] SURG 5 [facility] OUSMANE PATHOLOGY GROSS&RICARDO ROSCOPIC EXAM EXC TUMOR 60617 [facility] TRA SOFT 5 [place] [facility] ORTHOPAED FOREARM&/ ICS PLC WRIST SUBFASC <3CM INCISION 09323 [facility] TRA EXTENSOR 5 [place] ORTHOPAED SHEATH [facility]CS PLC WRIST BLOOD 35437 [facility] COUNT 5 N N COMPLETE COMMUNTIY COMMUNTIY AUTOMATED HOSPITA HOSPITA BASIC 89968 [facility] METABOLIC 5 N N PANEL COMMUNTIY COMMUNTIY CALCIUM HOSPITA HOSPITA TOTAL RADIOLOGI 21385 [facility] [place] PREETHI C EXAM 5 RADIOLOGY RHO CHEST 2 VIEWS FRONTAL&L ATERAL COLLECTIO 28540 [facility] N VENOUS 5 N N BLOOD COMMUNTIY COMMUNTIY VENIPUNCT HOSPITA HOSPITA URE ECG 38886 [facility] ROUTINE 5 N N ECG COMMUNTIY COMMUNTIY W/LEAST HOSPITA HOSPITA 12 LDS TRCG ONLY W/O I&R NERVE 20239 [facility] CONDUCTIO 5 N N STUDIES NEUROLOGY 9-10 STUDIES NEEDLE 32060 [facility] EMG EA 5 N EXTREMTY NEUROLOGY W/PARASPI NL AREA COMPLETE C-REACTIV 65393 [facility] E PROTEIN 5 Y Y HOSPITAL HOSPITAL SYPHILIS 70264 [facility] TEST 5 Y Y NON-TREPO [facility] [place] [address] [facility] THYROID 5 Y Y STIMULATI [facility] NG HORMONE TSH SEDIMENTA 34229 [facility] TION RATE 5 Y Y RBC [facility] AUTOMATED ANTINUCLE 42614 [facility] AR 5 Y Y ANTIBODIE [facility] [place] [address] [facility] HEPATITIS 5 Y Y B HOSPITAL HOSPITAL SURFACE ANTIGEN RADEX 64608 [facility] WRIST 2 5 Y Y VIEWS [facility] COMPLEMEN 25789 [facility] T ANTIGEN 5 Y Y EACH HOSPITAL HOSPITAL COMPONENT CYCLIC 16418 [facility] CITRULLIN 5 Y Y ATED [facility] PEPTIDE ANTIBODY EXTRACTAB 57433 [facility] LE 5 Y Y NUCLEAR [facility] ANTIGEN ANTIBODY ANY METHOD RADEX 56821 [place] MONTGOMER HAND 2 5 MEDICAL Y JUS VIEWS SERV FOUNDATIO N COLLECTIO 28239 [facility] N VENOUS 5 Y Y BLOOD [facility] VENIPUNCT URE RHEUMATOI 13735 [facility] D FACTOR 5 Y Y QUANTITAT [facility] [place] HEPATITIS 36227 [facility] C 5 Y Y ANTIBODY [facility] CREATINE 12599 [facility] KINASE 5 Y Y TOTAL HOSPITAL HOSPITAL RADIOLOGI 25380 [place] [facility] C 5 MEDICAL BORA EXAMINATI IMAGING ON PELVIS ASS 1/2 [place] 93378 [facility] JT UPPER 5 [place] EXTREMITY ORTHOPAED W/O [facility] CONTRAST MATRL RADEX 28754 [facility] WRIST 2 5 [place] VIEWS ORTHOPAED [facility] WRIST L3908 [facility] HAND 5 [facility] ORTHOSIS ORTHOPAED ORTHOPAED EXT IC IC CONTROL COCK-UP PREFAB RHEUMATOI 24623 J[facility]NNY Edwards FACTOR 5 [facility] QUANTITAT INC INC [place] SEDIMENTA 46535 [facility] TURNER TION RATE 5 [facility] RBC INC INC NON-AUTOM ATED BLOOD 24411 [facility] TURNER COUNT 5 [facility] COMPLETE INC INC AUTO&[place] [address] [facility] TURNER BLOOD/URI 5 [facility] C ACID INC INC ANTINUCLE 80647 [facility] T[facility] AR 5 [facility] ANTIBODIE INC INC S GUSTAVO RADEX 78953 [facility] SPINE [address] [facility] LUMBOSACR CONSULTAN AL 2/3 TS VIEWS RADEX HIP 35454 [facility] 4 C VANESA UNILATERA CONSULTAN L TS COMPLETE MINIMUM 2 VIEWS LOCM Q9967 [facility] TURNRE [phone] 4 [facility] MG/ML INC INC [place] [address] J[facility]NN[facility] TURNER UREA 4 [facility] [place] [address] JOHNNY TURNER ABDOMEN & 4 [facility] PELVIS INC INC W/CONTRAS T MATERIAL CREATININ 97955 JOHNNY TURNER E BLOOD 4 [facility] INC INC FLUORESCE 18482 J[facility] TURNER NT 4 [facility] NONNFCT INC INC AGT ANTB TITER EA ANTIBODY COMPREHEN 03692 [facility] TURNER SIVE 4 [facility] METABOLIC INC INC PANEL BLOOD 21305 J[facility]NN[facility] CASSIDY COUNT 4 [facility] CHR COMPLETE INC AUTO&AUTO DIFRNTL WBC PROTHROMB 34540 J[facility]NNY TURNER IN TIME 4 [facility] INC INC RADEX 98337 SEBASTIAN SEBASTIAN WRIST 4 ANTHONY ANTHONY COMPLETE MINIMUM 3 VIEWS RADEX 10045 SEBASTIAN SEBASTIAN HAND 4 ANTHONY ANTHONY MINIMUM 3 VIEWS RADEX 49977 [facility] TURNER HAND 4 [facility] MINIMUM 3 INC INC VIEWS RADEX 64897 J[facility] TURNER WRIST 4 [facility] COMPLETE INC INC MINIMUM 3 VIEWS RADEX 13880 JOHNNY TURNER FOREARM 2 4 [facility] VIEWS INC INC RADIOLOGI 38803 [facility]URNER C 4 [facility] EXAMINATI INC INC ON KNEE 1/2 VIEWS BLOOD 56799 [facility] TURNER COUNT 3 [facility] COMPLETE INC INC AUTO&AUTO DIFRNTL WBC COMPREHEN 58228 [facility] TURNER SIVE 3 [facility] METABOLIC INC INC PANEL RADEX 51746 ALEKS FINK WRIST 2 DON DON COMPLETE MINIMUM 3 VIEWS COMPREHEN 38344 [facility] TURNER SIVE 2 [facility] METABOLIC INC INC PANEL FLUORESCE 02175 [facility] TURNER NT 2 [facility] NONNFCT INC INC [place] [address] PATHOLOGY DOROTHY SURG 2 & KIM PATHOLOGY CYTOLOGY LAB GROSS&RICARDO ROSCOPIC EXAM SPCL STN 85299 PATHOLOGY DOROTHY 2 I&R 2 & KIM EXCPT CYTOLOGY MICROORG/ LAB ENZYME/IM CYT COMPREHEN 31570 [facility]NER SIVE 2 [facility] [place] [address] JOHNNY JOHNNY THYROID 2 [facility] STIMULATI INC INC NG HORMONE TSH COMPREHEN 33031 [facility] TURNER SIVE 1 [facility] METABOLIC INC INC PANEL BLOOD 50630 [facility] TURNER COUNT 1 [facility] COMPLETE INC INC AUTO&[place] [address] [facility] MEDICAL ANTHONY REAL IMAGING TIME ASS W/[place] [address] JOHNNY TURNER THYROID 1 [facility] STIMULATI INC INC NG HORMONE TSH ANTINUCLE 45164 JOHNNY TURNER AR 1 [facility] ANTIBODIE INC INC S GUSTAVO MICROSOMA 39578 [facility] TURNER L 1 [facility] ANTIBODIE INC INC S EACH HEPATITIS 70639 J[facility]NN[facility] TURNER B CORE 1 [facility] ANTIBODY INC INC HBCAB TOTAL HEPATITIS 33157 JOHNNY Fuller SURF 1 [facility] [address] JOHNNY TURNER HEPATITIS 1 [facility] B INC INC SURFACE ANTIGEN FLUORESCE 45482 [facility] TURNER NT 1 [facility] NONNFCT INC INC AGT ANTB TITER EA ANTIBODY HEPATITIS 16021 [facility] TURNER C 1 [facility] ANTIBODY INC INC CERULOPLA 49209 JOHNNY TURNER SMIN 1 [place] [address] J[facility]NNY TURNER GAMMAGLOB 1 [facility] [place] [address] J[facility]NNY TURNER IRON 1 [place] [address] JOHNNY TURNER FERRITIN 1 [facility] INC INC ALPHA-1-A 51285 JOHNNY TURNER NTITRYPSI 1 [facility] N TOTAL INC INC ALPHA-1-A 88038 J[facility]NNY TURNER NTITRYPSI 1 [facility] [place] [address] JOHNNY TURNER GAMMAGLOB 1 [facility] ULIN IGA INC INC IGD IGG IGM EACH IRON 32802 J[facility] TURNER BINDING 1 [facility] CAPACITY INC INC ESOPHAGOG 4516 [facility]NNY [facility]URNER ASTRODUOD 1 [facility] ENOSCOPY INC INC WITH CLOSED BIOPSY EGD 67826 JOHNNY TURNER TRANSORAL 1 [facility] BIOPSY INC INC SINGLE/[place] [address] J[facility]NNY TURNER INFUSION 1 [facility] THERAPY INC INC PROPHYLAX IS/DX EA HOUR SPECIAL 05844 [facility] [place] STAIN 1 ANGELIA & OUSMANE GROUP 1 DUBILIER MICROORGA NISMS I&R SPCL STN 00270 [facility] [place] 2 I&R 1 ANGELIA & OUSMANE EXCPT DUBILIER MICROORG/ ENZYME/IM CYT ANES 51381 [facility] UPPER GI 1 ANESTH ENDOSCOPY OF THE [place] [address] [facility]IPPS [place] SURG 1 ANGELIA & OUSMANE PATHOLOGY DUBILIER GROSS&RICARDO ROSCOPIC EXAM COMPREHEN 48601 [facility] TURNER SIVE 1 [facility] [place] [address] JOHNNY JOHNNY THYROID 1 [facility] STIMULATI INC INC NG HORMONE TSH BLOOD 77720 [facility] TURNER COUNT 1 [facility] COMPLETE INC INC AUTO&[place] [address] JOHNNY JOHNNY LIPASE 1 [place] [address] JOHNNY JOHNNY AMYLASE 1 [facility] INC INC CREATINE 85331 JOHNNY JOHNNY KINASE MB 1 [facility] FRACTION INC INC ONLY CREATINE 35550 JOHNNY JOHNNY KINASE 1 [facility] TOTAL INC INC ECG 02744 JOHNNY DELIO DWI ROUTINE 1 [facility] W/LEAST P 12 LDS I&[place] [address] JOHNNY TURNER TROPONIN 1 [facility]P QUANTITAT INC INC [place] BLOOD 99152 J[facility]NNY TURNER COUNT 1 [facility] COMPLETE INC INC AUTO&AUTO DIFRNTL WBC BASIC 29645 JOHNNY JOHNNY METABOLIC 1 [facility]OS[facility] PANEL INC INC CALCIUM TOTAL RADIOLOGI 99226 [place] MARIELLA Walsh 1 MEDICAL JACEK EXAMINATI IMAGING ON CHEST ASS SING[place] FRONTAL ECG 74508 JOHNNY TURNER ROUTINE 1 [facility] HOSP ECG INC INC W/LEAST 12 LDS TRCG ONLY W/O I&R Encounters Encounter Start End Date Code Location Performer Type Date [facility] JOHNNY - 7 7 [facility] OUTPATIEN INC HOSPITAL JOHNNY - 7 7 [facility] OUTPATIEN INC T HOSPITAL KAREN Diaz 7 7 N OUTPATIEN COMMUNTIY T HOSPITA EMERGENCY [address] [facility] DEPARTMEN INC T VISIT MODERATE SEVERITY EMERGENCY 81427 FABIAN MUKHERJEE 7 7 PHYSICIAN JR GARCIA S [facility] T VISIT HIGH/URGE NT SEVERITY HOSPITAL J[facility]NNY - 7 7 [facility] JOHNNY - 7 7 [facility]IEN [facility] OFFICE 67791 [facility] OUTPATIEN 7 7 [place] T VISIT ORTHOPAED 15 IC MINUTES OFFICE 81633 [facility] OUTPATIEN 7 7 PHYSICIAN T VISIT S GROUP 15 MINUTES HOSPITAL JOHNNY - 7 7 [facility] OUTPATIEN [facility] JOHNNY - 6 6 [facility] OUTPATIEN [facility] JOHNNY - 6 6 [facility]PATIEN [facility] JOHNNY - 6 6 [facility]PATIEN [facility] JOHNNY - [address] [facility] J[facility]NNY - 6 6 [facility] 6 N OUTPATIEN [facility] JOHNNY - 6 6 [facility] OUTPATIEN [facility] OFFICE 63443 [facility] CRISOSTOMO OUTPATIEN 6 6 T VISIT ORTHOPAED 15 ICS PSC MINUTES OFFICE 94864 [facility] OUTPATIEN 6 6 PHYSICIAN RICARDO T VISIT S GROUP 15 MINUTES HOSPITAL [facility]Y - 6 6 [facility] JOHNNY - 6 6 [facility] OFFICE 40174 [facility] OUTPATIEN 6 6 PHYSICIAN RICARDO T VISIT S GROUP 10 MINUTES OFFICE 16754 [facility] OUTPATIEN 6 6 T VISIT ORTHOPAED 15 ICS PSC MINUTES OFFICE 71867 [facility] OUTPATIEN 6 6 T VISIT ORTHOPAED 15 ICS PSC MINUTES OFFICE 42483 [facility] OUT[facility]IEN 6 6 PHYSICIAN RICARDO T VISIT S GROUP 15 MINUTES EMERGENCY 49247 FABIAN MUKHERJEE, 6 6 PHYSICIAN JR MATTI GARCIA S PLLC T VISIT MODERATE SEVERITY OFFICE 76763 [facility] OUTPATIEN 6 6 C VANESA T VISIT CONSULTAN 15 TS MINUTES HOSPITAL [facility]Y - 6 6 [facility] OUTPATIEN INC T OFFICE 28613 [facility] OUTPATIEN 6 6 C VANESA T VISIT CONSULTAN 15 TS MINUTES OFFICE 58080 [facility] OUTPATIEN 6 6 PHYSICIAN EUG T VISIT S GROUP 15 MINUTES HOSPITAL [facility]Y - 6 6 [facility] [place] - 5 5 N OUTPATIEN COMMUNTIY T HOSPITA OFFICE 27143 [facility] OUT[facility]IEN 5 5 PHYSICIAN RICARDO T VISIT S GROUP 10 MINUTES HOSPITAL J[facility]Y - 5 5 [facility] OUTPATIEN [facility] T OFFICE 69396 [facility] TRA OUTPATIEN 5 5 [place] T VISIT ORTHOPAED 15 ICS PLC MINUTES HOSPITAL JOHNNY - 5 5 [facility] OUTPATIEN [facility] T OFFICE 57062 [facility] TRA OUTPATIEN 5 5 [place] T VISIT ORTHOPAED 15 ICS PLC MINUTES HOSPITAL JOHNNY - 5 5 [facility] [place] - 5 5 N OUTPATIEN COMMUNTIY T HOSPITA OFFICE 85993 [facility] TRA OUTPATIEN 5 5 [place] T VISIT ORTHOPAED 15 ICS PLC MINUTES [facility]OSP[facility] 78518 FABIAN STALLINGS 5 5 PHYSICIAN Junior GARCIA S, PLLC T VISIT HIGH/URGE NT SEVERITY OFFICE 06659 [facility] OUTPATIEN 5 5 C VANESA T VISIT CONSULTAN 15 TS MINUTES OFFICE 03307 [facility] TRA CONSULTAT 5 5 [place] ION ORTHOPAED NEW/ESTAB ICS PLC PATIENT 60 MIN OFFICE 70735 [facility] OUTPATIEN 5 5 PHYSICIAN RICARDO T VISIT S GROUP 15 MINUTES HOSPITAL J[facility]NNY - 5 5 [facility] OUTPATIEN INC T OFFICE 93863 [facility] OUT[facility] 4 4 PHYSICIAN RICARDO T VISIT S GROUP 10 MINUTES OFFICE 59409 [facility] OUTPATIEN 4 4 C VANESA T NEW 30 CONSULTAN MINUTES TS OFFICE 84796 [facility] ALLRAN JR OUTPATIEN 4 4 PHYSICIAN MACARIO T VISIT S GROUP 15 MINUTES HOSPITAL J[facility]NNY - 4 4 [facility] OUTPATIEN INC T OFFICE 85721 ALLRAN JR ALLRAN JR CONSULTAT 4 4 MACARIO MACARIO ION NEW/ESTAB PATIENT 60 MIN HOSPITAL [facility]NNY - 4 4 [facility] OUTPATIEN INC T OFFICE 59920 MEADE LOR[facility] MEADE [facility]ORA OUTPATIEN 4 4 T VISIT 25 MINUTES OFFICE 67624 [facility] OUT[facility] 4 4 PHYSICIAN RICARDO T VISIT S GROUP 10 MINUTES HOSPITAL [facility]Y - 4 4 [facility] OUTPATIEN INC T OFFICE 80801 [facility] OUTPATIEN 4 4 RICARDO RICARDO T VISIT 10 MINUTES HOSPITAL J[facility]Y - 4 4 [facility] OUTPATIEN INC T OFFICE 02859 PETTEY PETTEY OUTPATIEN 4 4 JAM JAM T NEW 45 MINUTES HOSPITAL [facility]Y - 3 3 [facility] OUTPATIEN INC T OFFICE 34164 MEADE LORA [facility] OUTPATIEN 3 3 T VISIT 25 MINUTES OFFICE 31251 ALEKS FINK OUTPATIEN 2 2 DON DON T VISIT 15 MINUTES OFFICE 25359 MEADE LORA [facility] OUTPATIEN 2 2 T VISIT 15 MINUTES OFFICE 05258 ALEKS FINK OUTPATIEN 2 2 DON DON T VISIT 25 MINUTES HOSPITAL [facility]Y - 2 2 [facility] OFFICE 11922 MEADE LORA [facility] OUTPATIEN 2 2 T VISIT 15 MINUTES OFFICE 85751 [place] OUTPATIEN 2 2 MEDICAL T VISIT SERV 25 FOUNDATIO MINUTES [facility] JOHNNY - 2 2 [facility] JOHNNY - 1 1 [facility]PATI[facility] OFFICE 70798 SHIVAM MEADE [facility] OUTPATIEN 1 1 MEDICAL T VISIT SERV 25 FOUNDATIO MINUTES [facility]OSPITAL J[facility] - 1 1 [facility] OUTPATIEN [facility] OFFICE 84496 SHIVAM MEADE [facility] OUTPATIEN 1 1 MEDICAL T VISIT SERV 40 FOUNDATIO MINUTES [facility] JOHNNY - 1 1 [facility] OUTPATIEN [facility] JOHNNY - 1 1 [facility] OUTPATI[facility] OFFICE 83828 SHIVAM MEADE LORA CONSULTAT 1 1 MEDICAL ION SERV NEW/ESTAB FOUNDATIO PATIENT 60 MIN OFFICE 79982 [facility] OUTPATIEN 1 1 DON DON T VISIT 15 MINUTES OFFICE 01876 [facility] OUTPATIEN 1 1 DON DON T VISIT 15 MINUTES EMERGENCY 56493 DOROTHY MOYER DEPT 1 1 EMERGENCY RICARDO VISIT SERVICES HIGH SEVERITY& THREAT [facility] JOHNNY - 1 1 [facility] OUTPATIEN INC T EMERGENCY 88265 JOHNNY 1 1 [facility] DEPARTMEN INC T VISIT HIGH/URGE NT SEVERITY
--- OUTSIDE RECORDS SUMMARY | 2016-12-14 13:29 | External Medical Summary Rpt ---
Author Author , Organization [employer] Address Unknown Phone Unavailable Care Team Providers Care Lot Technician Name Role Phone ALLRAN MACARIO, ALLRAN Unavailable Unavailable JR MACARIO BEINEKE BORA, BEINEKE Unavailable Unavailable BORA BESSON, BESSON Unavailable Unavailable BESSON GI, BESSON Unavailable Unavailable [facility] Unavailable [facility]available [facility], [facility] SILVA ALL, SILVA ALL Unavailable Unavailable [facility] Unavailable Unavailable SERVICE, [facility] Unavailable Unavailable SERVICE, [facility] Unavailable Unavailable ORTHOPAEDIC, [facility] Unavailable Unavailable ORTH[facility]EDIC, [facility] Unavailable Unavailable [facility], [facility] & Unavailable Unavailable DUBILIER, [facility], Unavailable [facility] SEBASTIAN ANTHONY, Unavailable Unavailable SEBASTIAN ANTHONY SEBASTIAN ANTHONY, Unavailable Unavailable SEBASTIAN ANTHONY [facility] Unavailable Unavailable [place], [facility] [place] [facility], Unavailable Unavailable LLC, [facility], [facility] FRYMAN EUG, FRYMAN Unavailable Unavailable EUG JR YAZ, YAZ, Unavailable Unavailable JR MATTI ESTEVEZ, Unavailable Unavailable JR MATTI MUKHERJEE COMFORT, COMFORT Unavailable Unavailable COMFORT RICARDO, COMFORT Unavailable Unavailable RICARDO COMFORT RICARDO, COMFORT Unavailable Unavailable RICARDO [facility] Un[facility], [facility] LEVY, LEVY Unavailable Unavailable LEVY RICARDO, LEVY Unavailable Unavailable RICARDO PREETHI RHO, PREETHI Unavailable Unavailable RHO [facility] Unavailable Unavailable INC, [facility] Unavailable Unavailable H[facility]PITAL P, [facility], Unavailable Unavailable [facility] CRISOSTOMO, CRISOSTOMO Unavailable Unavailable CRISOSTOMO TRA, CRISOSTOMO TRA Unavailable Unavailable IWLBERTO LADD Unavailable Unavailable [facility] Un[facility] Unavailable [facility] PS, [facility] Un[facility], [facility] Un[facility], [facility] Un[facility], [facility] DELIO DWI, DELIO DWI Unavailable Unavailable DELIO JR DWI, DELIO Unavailable Unavailable JR DWI ALMONTE OUSMANE, ALMONTE Unavailable Unavailable OUSMANE DOROTHY KIM, Unavailable Unavailable DOROTHY [facility]IM [facility] Unavailable Unavailable SERVICES, [facility] MARIELLA JACEK, MARIELLA Unavailable Unavailable JACEK FINK JUS, Unavailable Unavailable FINK JUS WALL DANNA, WALL DANNA Unavailable Unavailable [facility] Unavailable [facility], [facility] Unavailable Unavailable CONSULTANTS, [...] DON ROBYN ROMEO, ROBYN Unavailable Unavailable OUSMANE [facility], Unavailable Unavailable [facility] NATANAEL ALEXIS, NATANAEL Unavailable Unavailable VANESA [facility] # Unavailable Unavailable [id number], [facility] # [id number] Purpose Continuity of Care Document - 08-17-2010 through 2016 Problems Code Diagnosis DOS Provider Status [id number] OTHER LONG 11-04-2016 [facility] TERM [facility] CURRENT INC DRUG THERAPY [id number] UNS TEAR 09-09-2016 [facility] UNS ANESTHESIA MENISCUS GROUP PS CURR INJ LT KNEE INIT ENC [id number] OTH TEAR 09-09-2016 [facility] [place] LAT MENISC COMMUNTI CURRNT INJ HOSPITA LT KNEE INIT ENC Z720 TOBACCO USE 09-09-2016 [facility] K219 GASTRO-ESOP 09-06-2016 [facility] H REFLUX [facility] DISEASE INC WITHOUT ESOPHAGITIS M1612 UNILATERAL 09-06-2016 [facility]IMARY [facility] OSTEOARTHRI IMAGING ASS TIS LEFT HIP [id number] PAIN IN 09-06-2016 [facility] V28538 PAIN IN 09-06-2016 [facility] U12216 PAIN IN 09-06-2016 [facility] LEFT KNEE PHYSICIANS, [facility] M461 SACROILIITI 09-06-2016 [facility] S NOT MEDICAL ELSEWHERE IMAGING ASS CLASSIFIED 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 M5442 LUMBAGO 09-06-2016 [facility] WITH PHYSICIANS, [facility] LEFT SIDE M545 LOW BACK 09-06-2016 [facility] PAIN [facility]ICAL IM[facility]ING ASS U39613 PAIN IN 09-06-2016 [facility] RIGHT [facility]G AMB[facility]ANCE SERVICE M8588 OTH SPEC 09-06-2016 [facility] D/O BONE MEDICAL DENSITY IMAGING ASS STRUCTURE OT SITE R200 ANESTHESIA 09-06-2016 [facility] OF SKIN AMBULANCE SERVICE [id number] UNS INJURY 09-06-2016 [facility] LT LOWER MEDICAL LEG INITIAL IMAGING ASS ENCOUNTER 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 UNS R911 SOLITARY 09-04-2016 [facility] PULMONARY [facility]ICAL NODULE IM[facility]ING ASS K16867 ENCOUNTER 09-04-2016 [facility] AL CARIOVASCUL AR EXAM H20148 ENCOUNTER 09-04-2016 [facility] P AL LABORATORY EXAM [id number] BUCKET-HAND 08-27-2016 [facility] LE TEAR LAT [facility] MENSCUS [facility] CURR LT KNEE INIT R296 REPEATED 06-19-2016 [facility] [id number] OTH TEAR 05-02-2016 [facility] LAT MENISC [facility] CURRNT INJ INC LT KNEE SBSQT ENC Y92398 DERANG POST 03-25-2016 [facility] [place] COMMUNTIY MENISC OLD HOSPITA TEAR/INJ LT KNEE H50952 DERANG OTH 03-25-2016 [place] LAT MENISC COMMUNTIY D/T OLD HOSPITA TEAR/INJ LT KNEE Q686 DISCOID 03-25-2016 [facility] S PSC [id number] OTH TEAR 03-25-2016 [facility] MED [facility]THOPAEDIC MENISCUS S PSC CURR INJ LT KNEE INIT ENC M70465 PAIN IN 03-20-2016 [facility] UNSPECIFIED [facility] P R197 DIARRHEA 03-20-2016 [facility] UNSPECIFIED [facility] INC V19409 ENCOUNTER 03-20-2016 [facility] FOR [facility] P AL RESPIRATORY EXAM [id number] OTH TEAR 03-05-2016 [facility] MENISCUS S PSC CURR INJ LT KNEE SBSQT ENC M1990 UNSPECIFIED 02-24-2016 [facility] PHYSICIANS OSTEOARTHRI GROUP TIS UNSPECIFIED SITE M5416 RADICULOPAT 02-24-2016 [facility] HY LUMBAR PHYSICIANS REGION GROUP [id number] FRACTURE 12-04-2015 [facility] ONE RIB UNS PHYSICIANS SIDE GROUP INITIAL ENC CLOSED FX M2392 UNSPECIFIED 11-23-2015 [facility] INTERNAL [facility], DERANGEMENT PLLC OF LEFT KNEE R0781 PLEURODYNIA 11-23-2015 [facility] [id number] CONTUSION 11-23-2015 [facility] RT FRONT PHYSICIANS, WALL THORAX PLLC INITIAL ENCOUNTER [id number] MULTIPLE FX 11-23-2015 [facility] RIBS RT MEDICAL SIDE INIT IMAGING ASS [...] LLC DEGEN LUMBOSACRAL REGION 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 G5602 CARPAL 07-10-2015 [facility] [place] [facility]UN[facility]EL [facility] SYNDROME S PLC LEFT UPPER LIMB I10 ESSENTIAL 07-10-2015 [facility] [place] PRIMARY COMMUNTIY HYPERTENSIO HOSPITA N M654 RADIAL 07-10-2015 [facility] STYLOID COMMUNTIY TENOSYNOVIT HOSPITA IS DE QUERVAIN G5600 CARPAL 06-14-2015 [facility] TUNNEL PHYSICIANS SYNDROME GROUP UNSPECIFIED UPPER LIMB R05 COUGH 06-14-2015 [facility] T07969 ENCOUNTER 06-14-2015 [facility] FOR OTHER [facility] P AL EXAMINATION 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 CERV REGION U71605 PAIN IN 05-16-2015 [facility] [place] LEFT WRIST ORTHOPAEDIC S PLC M79A12 NONTRAUMATI 05-06-2015 [facility] C [facility] COMPARTMENT INC SYNDROME LT UP EXTREM 86473 HEMANGIOMA 04-03-2015 [facility] [place] OF SKIN AND ORTHOPAEDIC S PLC SUBCUTANEOU S TISSUE 21696 OTHER 04-03-2015 [facility] SYMPTOMS ANESTHESIA REFERABLE GROUP PS TO FOREARM JOINT 67475 RADIAL 04-03-2015 [facility] [place] STYLOID ORTHOPAEDIC TENOSYNOVIT S PLC IS 7822 LOCALIZED 04-03-2015 [facility] SWELLING [place]ASS [place] LUMP 56646 NEOPLASMS 03-28-2015 [facility] [place] UNSPECIFIED COMMUNTIY NATURE OT HOSPITA SPECIFIED SITES V7283 OTHER 03-28-2015 [facility] [place] SPECIFIED COMMUNTIY PRE-OPERATI HOSPITA VE EXAMINATION 3540 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 [facility] [place]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 04247 PAIN IN 01-07-2015 [facility] JOINT, SITE PHYSICIANS GROUP UNSPECIFIED 7242 LUMBAGO 05-29-2014 [facility] PHYSICIANS GROUP 40335 PRIMARY LOC 04-25-2014 [facility] OSTEOARTHRO SIS PELVIC REGION&THIG H 7213 LUMBOSACRAL 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[facility] SPONDYLOSIS WITHOUT MYELOPATHY 26893 ABDOMINAL 04-11-2014 [facility] PAIN RIGHT PHYSICIANS LOWER GROUP QUADRANT 40997 ABDOMINAL 04-04-2014 [facility] PAIN, MEM H[facility] UNSPECIFIED INC SITE 69763 ESOPHAGEAL 03-12-2014 [facility] REFLUX 5718 OTHER 03-12-2014 [facility] CHRONIC NONALCOHOLI C LIVER DISEASE 7906 OTHER 03-12-2014 [facility] ABNORMAL BLOOD CHEMISTRY 00534 OTHER 02-20-2014 [facility] SYMPTOMS PHYSICIANS INVOLVING GROUP URINARY SYSTEM 32340 PAIN IN 12-15-2013 [facility] JOINT, HAND MEM [facility] INC 69814 OSTEOARTHRO 12-12-2013 COMFORT RICARDO S UNSPEC WHETHER GEN/LOC UNSPEC SITE 9592 INJURY 12-12-2013 COM[facility] RICARDO OTHER&UNSPE CIFIED SHOULDER&UP PER ARM 7177 CHONDROMALA 10-26-2013 PETALLEN ALLEN TOBIAS OF [place] 05644 PAIN IN 10-26-2013 [facility] JOINT, [facility] LOWER LEG INC 7282 MUSCULAR 10-26-2013 PETTELeslye ALLEN WASTING AND DISUSE ATROPHY NEC 7295 PAIN IN 10-26-2013 [facility] SOFT ANTHONY TISSUES OF LIMB E8889 UNSPECIFIED 10-26-2013 SE[facility]IAN FALL ANTHONY V1551 PERSONAL 10-26-2013 VALDEMAR ALLEN HISTORY OF TRAUMATIC FRACTURE 7948 NONSPECIFIC 05-08-2013 [facility] ABNORMAL [facility] RESULTS INC LIVR FUNCTION STUDY 7871 HEARTBURN 03-27-2013 [facility] 74524 CLOSED 04-27-2012 [facility] FRACTURE OF DON UNSPECIFIED PART OF RADIUS 7905 OTHER 04-25-2012 [facility] NONSPECIFIC ABNORMAL SERUM ENZYME LEVELS 09426 OTHER 11-17-2011 PATHOLOGY & CHRONIC CYTOLOGY HEPATITIS LAB 83379 THYROTOX 08-31-2011 [place] W/O [facility] GOITER/OTH INC CAUSE W/O CRISIS 80924 DIARRHEA 04-17-2011 [facility] 73445 ABDOMINAL 04-13-2011 [place] [facility] PA[facility], SERV EPIGASTRIC FOUNDATIO 27898 REFLUX 03-23-2011 [place] [facility] ESOPHAGITIS SERV FOUNDATIO 31948 OTHER SPEC 03-23-2011 [facility] GASTRITIS ANGELIA & WITHOUT DUBILIER MENTION HEMORRHAGE 5379 UNSPECIFIED 03-23-2011 [place] [facility] DISORDER SERV OF STOMACH FOUNDATIO AND DUODENUM 7831 ABNORMAL 03-10-2011 [facility] WEIGHT GAIN [facility] INC 04133 CHEST PAIN 08-17-2010 [facility] UNSPECIFIED EMERGENCY SERVICES 91898 OTHER CHEST 08-17-2010 [facility] P Medications Na ND Rx Da Fi [...] ve LO 37 20 20 48 DE PA 50 17 17 36 AM 1 82 [...] 48 DE ZA 11 17 17 31 PA 0 35 PH IN AR E MA [...] ve LO 37 20 20 47 DE PA 50 17 17 97 AM 1 40 PH AR 20 MA CY MG OF TA CY BL NT ET HI AN A IN C CY 00 03 03 60 30 00 EA Ac CL 37 -0 -[address] ti OB 80 1- 4- 00 00 SI ve EN 75 20 20 47 DE ZA 11 17 17 80 PA 0 32 PH IN AR E MA [...] ve LO 37 20 20 47 DE PA 50 17 17 61 AM 1 26 [...] 47 DE ZA 11 17 17 49 PA 0 45 PH IN AR E MA [...] ve LO 37 20 20 46 DE PA 50 17 17 87 AM 1 03 [...] ve LO 37 20 20 46 DE PA 50 16 17 87 AM 1 03 [...] OF ET CY NT HI AN A PA 37 08 08 5 60 30 WA [...] OF ET CY NT HI AN A PA 37 08 08 5 60 30 WA 88 PE Ac IL 00 -0 -0 .0 L- 18 NA ti OS 00 2- 2- 00 MA 47 ve EC 45 20 20 RT 2 TRACE 50 11 11 IS OT 4 PH R C AR 20 MA .6 CY # MG 10 TA 05 BL 91 ET PA 37 07 07 5 30 30 CL [...] BL ET CY NT HI AN A PA 00 05 05 [address] Ac OM 78 -2 -[address] 62 EP ti ET 11 0- 0- 00 SI 04 HE ve AMARAL 83 20 20 DE NS ZI 01 11 11 NE 0 PH DO AR N 25 MA R CY MG OF TA BL CY ET NT HI AN A PA 37 04 05 5 30 30 EA [...] OF ET CY NT HI AN A PA 00 05 05 0 20 5 EA [...] UL CY E NT HI AN A PA 37 04 04 5 30 30 EA [...] DOS Code Location Performer Comment DRUG TEST 44971 [facility] HOON PRSMV 7 [facility] QUAL DIR INC INC OPTICAL OBS PER DAY DRUG TEST 02171 J[facility] TURNER PRSMV 7 [facility] QUAL DIR INC INC OPTICAL OBS PER DAY INJECTION J1100 [facility] 7 N N DEXAMETHO COMMUNTIY COMMUNTIY SONE HOSPITA HOSPITA SODIUM PHOSPHATE 1 MG INJECTION J2001 [facility] 7 N N LIDOCAINE COMMUNTIY COMMUNTIY HCL HOSPITA HOSPITA INTRAVENO US INFUS 10 MG INJECTION J0690 [facility] 7 N N CEFAZOLIN COMMUNTIY COMMUNTIY SODIUM HOSPITA HOSPITA 500 MG INJECTION J2250 [facility] 7 N N MIDAZOLAM COMMUNTIY COMMUNTIY HCL PER HOSPITA HOSPITA 1 MG RINGERS J7120 [facility] LACTATE 7 N N INFUSION COMMUNTIY COMMUNTIY UP TO HOSPITA HOSPITA 1000 CC ANES 20143 [facility] OPEN/SURG 7 ANESTHESI A GROUP ARTHROSCO PS PIC PROC KNEE JOINT NOS ARTHRS 33240 [facility] KNE SURG 7 N N W/MENISCE COMMUNTIY COMMUNTIY CTOMY HOSPITA HOSPITA MED/LAT W/SHVG INJECTION J1885 [facility] 7 N N KETOROLAC COMMUNTIY COMMUNTIY HOSPITA HOSPITA TROMETHAM INE PER 15 MG INJECTION J2704 [facility] PROPOFOL 7 N N 10 MG COMMUNTIY COMMUNTIY HOSPITA HOSPITA INJECTION J3010 [facility] 7 N N CITRATE COMMUNTIY COMMUNTIY 0.1 MG HOSPITA HOSPITA RADIOLOGI 99090 [facility] TURNER C 7 [facility] EXAMINATI INC INC ON KNEE 3 VIEWS UNCLASSIF J3490 [facility] TURNER IED DRUGS 7 [facility] INC INC GROUND A0425 [facility]EA 7 AMBULANCE AMBULANCE PER SERVICE SERVICE STATUTE MILE AMBULANCE A0429 [facility] SERVICE 7 AMBULANCE AMBULANCE BLS SERVICE SERVICE EMERGENCY TRANSPORT CT LUMBAR 85118 [facility] TURNER SPINE 7 [facility] W/O INC INC CONTRAST MATERIAL RADEX HIP 20953 [facility] TURNER 7 [facility] UNILATERA INC INC L WITH PELVIS 2-3 VIEWS THER 59939 [facility] TURNER PROPH/DX 7 [facility] NJX IV INC INC PUSH SINGLE/1S T SBST/DRUG COLLECTIO 89191 [facility] TURNER N VENOUS 7 [facility] BLOOD INC INC VENIPUNCT URE BLOOD 52169 [facility] TURNER COUNT 7 [facility] COMPLETE INC INC AUTO&AUTO DIFRNTL WBC COMPREHEN 14365 [facility] TURNER SIVE 7 [facility] METABOLIC INC INC PANEL COLLECTIO 21389 J[facility]NNY TURNER N VENOUS 7 [facility] BLOOD INC INC VENIPUNCT URE ECG 50129 JOHNNY JOHNNY ROUTINE 7 [facility] ECG INC INC W/LEAST 12 LDS TRCG ONLY W/O I&R RADIOLOGI 49669 JOHNNY JOHNNY C EXAM 7 [facility] CHEST 2 INC INC VIEWS FRONTAL&L ATERAL ECG 64524 JOHNNY HURTADO ROUTINE 7 [facility] W/LEAST P 12 LDS I&R ONLY BASIC 26539 J[facility]NNY TURNER METABOLIC 7 [facility] PANEL INC INC CALCIUM TOTAL DRUG TEST 63473 JOHNNY TURNER PRSMV 7 [facility]OS[facility] QUAL DIR INC INC OPTICAL OBS PER DAY DRUG 78835 JOHNNY TURNER SCREENING 7 [facility] HOSP OPIOIDS INC INC & OPIATE ANALOGS 5/MORE MRI ANY 39806 JUSTIN CRISOSTOMO JT LOWER 6 EXTREM ORTHOPAED W/O ICS PSC CONTRAST MATRL DRUG TST G0477 J[facility]NNY TURNER PRESUMP;C 6 [facility] PBL BEING INC INC READ DC OPT OBV ONLY RADIOLOGI 56954 JUSTIN Walsh 6 EXAMINATI ORTHOPAED ON KNEE 3 ICS PSC VIEWS CANE E0105 KEON HERBERT QUAD/3-PA 6 HOME HOME [facility] ALL MEDICAL MEDICAL MATL EQUIPME EQUIPME ADJUSTBL/ FIX W/TIPS DRUG TST G0477 J[facility]NNY TURNER PRESUMP;C 6 [facility] PBL BEING INC INC READ DC OPT OBV ONLY DRUG TST G0477 J[facility]NNY TURNER PRESUMP;C 6 [facility]OS[facility] PBL BEING INC INC READ DC OPT OBV ONLY THERAPEUT 60360 JOHNNY TURNER IC PX 1/> 6 [facility] AREAS INC INC EACH 15 MIN EXERCISES THERAPEUT 10-05-201 53816 JOHNNY TURNER IC PX 1/> 6 [facility] AREAS INC INC EACH 15 MIN EXERCISES PHYSICAL 25722 J[facility]NNY TURNER THERAPY 6 [facility] HOSP EVALUATIO INC INC N ANES 63314 JULIANE LEVY OPEN/SURG 6 ANESTHESI RICARDO A GROUP ARTHROSCO PS PIC PROC KNEE JOINT NOS ARTHRS 20885 [facility] KNEE 6 N N W/MENISCE COMMUNTIY COMMUNTIY CTOMY HOSPITA HOSPITA MED&LAT W/SHAVING INJECTION J2704 [facility] PROPOFOL 6 N N 10 MG COMMUNTIY COMMUNTIY HOSPITA HOSPITA INJECTION J3010 [facility] 6 N N CITRATE COMMUNTIY COMMUNTIY 0.1 MG HOSPITA HOSPITA INJECTION J1100 [facility] 6 N N DEXAMETHO COMMUNTIY COMMUNTIY SONE HOSPITA HOSPITA SODIUM PHOSPHATE 1 MG INJECTION J2270 [facility] MORPHINE 6 N N SULFATE COMMUNTIY COMMUNTIY UP TO 10 HOSPITA HOSPITA MG INJECTION J0690 [facility] 6 N N CEFAZOLIN COMMUNTIY COMMUNTIY SODIUM HOSPITA HOSPITA 500 MG RINGERS J7120 [facility] LACTATE 6 N N INFUSION COMMUNTIY COMMUNTIY UP TO HOSPITA HOSPITA 1000 CC BASIC 14888 J[facility]NNY TURNER METABOLIC 6 [facility] HOSP PANEL INC INC CALCIUM TOTAL RADIOLOGI 06127 JOHNNY TURNER C EXAM 6 [facility] HOSP CHEST 2 INC INC VIEWS FRONTAL&L ATERAL ECG 63212 JOHNNY HURTADO ROUTINE [facility] W/LEAST P 12 LDS I&R ONLY BLOOD 01378 JOHNNY TURNER COUNT 6 [facility]OS[facility] COMPLETE INC INC AUTO&AUTO DIFRNTL WBC ECG 80247 J[facility]NNY TURNER ROUTINE 6 [facility]OS[facility] ECG INC INC W/LEAST 12 LDS TRCG ONLY W/O I&R COLLECTIO 40308 JOHNNY TURNER N VENOUS 6 [facility] BLOOD INC INC VENIPUNCT URE RADIOLOGI 87508 JULIANE SILVA ALL C 6 MEDICAL EXAMINATI IMAGING ON CHEST ASS SINGLE VIEW FRONTAL DRUG TST G0477 J[facility]NNY TURNER PRESUMP;C 6 [facility]OS[facility] PBL BEING INC INC READ DC OPT OBV ONLY DRUG TST G0477 J[facility]NNY TURNER PRESUMP;C 6 [facility]OS[facility] PBL BEING INC INC READ DC OPT OBV ONLY ARTHROCEN 26870 JUSTIN SANCHEZIS 6 ASPIR&/IN ORTHOPAED J MAJOR ICS PSC JT/BURSA W/O US MRI ANY 05148 JUSTIN CRISOSTOMO TRA JT LOWER 6 EXTREM ORTHOPAED W/O ICS PSC CONTRAST MATRL RADIOLOGI 38943 JUSTIN LADD C 6 EXAMINATI ORTHOPAED ON KNEE ICS PSC 1/2 VIEWS RADEX 22051 JULIANE SILVA ALL RIBS UNI 6 MEDICAL W/POSTERO IMAGING ANT CH ASS MINIMUM 3 VIEWS RADIOLOGI 74788 JULIANE SLIVA ALL C 6 MEDICAL EXAMINATI IMAGING ON KNEE ASS 1/2 VIEWS LUMB L0642 KEON KEON ORTHOS 6 HOME HOME [facility] RIGD EQUIPME EQUIPME ANT POST PANELS MRI 59327 SHARON HERRERA SPINAL [address] CANAL MRI [facility] MRI [facility] LUMBAR W/O CONTRAST MATERIAL DRUG TST G0477 JOHNNY TURNER PRESUMP;C 6 [facility]OS[facility] PBL BEING INC INC READ DC OPT OBV ONLY RADEX 34529 [facility]TH[facility]I [facility] SPINE 6 C VANESA LUMBOSACR CONSULTAN AL 2/3 TS VIEWS DRUG TST G0477 JOHNNY TURNER PRESUMP;C 6 [facility] H[facility]P [facility] HOSP PBL BEING INC INC READ DC OPT OBV ONLY ANES 12505 [facility] CH[facility] NERVE 5 ANESTHESI PRASHANT MUSCLE A GROUP TDN PS FASCIA&BU RSA FOREARM WRIST INJECTION J3010 [facility] 5 N N [place]RATE COMMUNTIY COMMUNTIY 0.1 MG HOSPITA HOSPITA INJECTION J2704 [facility] PROPOFOL 5 N N 10 MG COMMUNTIY COMMUNTIY HOSPITA HOSPITA INJECTION J1885 [facility] 5 N N KETOROLAC COMMUNTIY COMMUNTIY HOSPITA HOSPITA TROMETHAM INE PER 15 MG NEUROPLAS 76444 [facility] CRISOSTOMO TRA TY 5 [place] &/TRANSPO ORTHOPAED S MEDIAN ICS PLC NRV CARPAL TUNNE INJECTION J1100 [facility] 5 N N DEXAMETHO COMMUNTIY COMMUNTIY SONE HOSPITA HOSPITA SODIUM PHOSPHATE 1 MG RINGERS J7120 [facility] LACTATE 5 N N INFUSION COMMUNTIY COMMUNTIY UP TO HOSPITA HOSPITA 1000 CC INJECTION J2001 [facility] 5 N N LIDOCAINE COMMUNTIY COMMUNTIY HCL HOSPITA HOSPITA INTRAVENO US INFUS 10 MG INJECTION J0690 [facility] 5 N TESTING, [facility] SODIUM HOSPITA 500 MG INJECTION J2250 [facility] 5 N N [place] COMMUNTIY COMMUNTIY HCL PER HOSPITA HOSPITA 1 MG INCISION 43787 [facility] EXTENS[facility] 5 [place] [facility] [facility] WRIST RADIOLOGI 11777 JOHNNY TURNER C EXAM 5 [facility] CHEST 2 INC INC VIEWS FRONTAL&L ATERAL BASIC 71444 JOHNNY TURNER METABOLIC 5 [facility] PANEL INC INC CALCIUM TOTAL BLOOD 32177 JOHNNY TURNER COUNT 5 [facility] COMPLETE INC INC AUTO&AUTO DIFRNTL WBC ECG 44304 JOHNNY KEBEDE JR ROUTINE 5 [facility] W/LEAST P 12 LDS I&R ONLY ECG 10918 JOHNNY TURNER ROUTINE 5 [facility] ECG INC INC W/LEAST 12 LDS TRCG ONLY W/O I&R COLLECTIO 82431 JOHNNY TURNER N VENOUS 5 [facility] BLOOD INC INC VENIPUNCT URE PHYSICAL 08311 JOHNNY TURNER THERAPY 5 [facility] EVALUATIO INC INC N THERAPEUT 67942 JOHNNY TURNER IC PX 1/> 5 [facility] AREAS INC INC EACH 15 MIN EXERCISES MANUAL 30489 JOHNNY TURNER THERAPY 5 [facility] TQS 1/> INC INC REGIONS EACH 15 MINUTES MANUAL 70609 JOHNNY TURNER THERAPY 5 [facility] TQS 1/> INC INC REGIONS EACH 15 MINUTES THERAPEUT 89920 JOHNNY TURNER IC PX 1/> 5 [facility] AREAS INC INC EACH 15 MIN EXERCISES THERAPEUT 35327 JOHNNY TURNER IC PX 1/> 5 [facility] AREAS INC INC EACH 15 MIN EXERCISES MANUAL 94777 JOHNNY TURNER THERAPY 5 [facility] TQS 1/> INC INC REGIONS EACH 15 MINUTES OCCUPATIO 53996 JOHNNY TURNER NAL 5 [facility] THERAPY INC INC EVALUATIO N ANES 20682 AMANDALeslye ROBYN INTEG 5 ANESTHESI [place] EXTREMITI A GROUP ES ANT PS TRUNK & [place] [address] P&[facility], ALMONTE SURG 5 [facility] PATHOLOGY GROSS&RICARDO ROSCOPIC EXAM EXC TUMOR 56219 [facility] TRA SOFT 5 [place] [facility] FOREARM&/ [facility] WRIST SUBFASC <3CM INCISION 86400 [facility] TRA EXTENSOR 5 [place] [facility] WRIST BLOOD 16008 [facility] COUNT 5 N N COMPLETE COMMUNTIY COMMUNTIY AUTOMATED HOSPITA HOSPITA BASIC 46457 [facility] METABOLIC 5 N N PANEL COMMUNTIY COMMUNTIY CALCIUM HOSPITA HOSPITA TOTAL RADIOLOGI 38634 [facility] [place] PREETH[place] C EXAM 5 RADIOLOGY RHO CHEST 2 VIEWS FRONTAL&L ATERAL COLLECTIO 52647 [facility] N VENOUS 5 N N BLOOD COMMUNTIY COMMUNTIY VENIPUNCT HOSPITA HOSPITA URE ECG 45170 [facility] ROUTINE 5 N N ECG COMMUNTIY COMMUNTIY W/LEAST HOSPITA HOSPITA 12 LDS TRCG ONLY W/O I&R NERVE 37427 [facility] CONDUCTIO 5 N N STUDIES NEUROLOGY 9-10 STUDIES NEEDLE 51821 [facility] EMG EA 5 N EXTREMTY NEUROLOGY W/PARASPI NL AREA COMPLETE C-REACTIV [address]1023 [facility] E PROTEIN 5 Y [facility] [place] [address] [facility] TEST 5 Y Y NON-TREPO [facility] [place] [address] [facility] THYROID 5 Y Y STIMULATI [facility] NG HORMONE TSH SEDIMENTA 33680 [facility] TION RATE 5 Y Y RBC [facility] AUTOMATED ANTINUCLE 69773 [facility] AR 5 Y Y ANTIBODIE [facility] [place] [place] [address] [facility] HEPATITIS 5 Y Y B HOSPITAL HOSPITAL SURFACE ANTIGEN RADEX [address]7218 [facility] WRIST 2 5 Y Y VIEWS [facility] COMPLEMEN 65372 [facility] T ANTIGEN 5 Y Y EACH HOSPITAL HOSPITAL COMPONENT CYCLIC 55580 [facility] CITRULLIN 5 Y Y ATED [facility] PEPTIDE ANTIBODY EXTRACTAB 25380 [facility] LE 5 Y Y NUCLEAR [facility] ANTIGEN ANTIBODY ANY METHOD RADEX 58710 [place] [facility] HAND 2 5 MEDICAL Y JUS VIEWS SERV FOUNDATIO N COLLECTIO 91751 [facility] N VENOUS 5 Y Y BLOOD [facility] VENIPUNCT URE RHEUMATOI 16245 [facility] D FACTOR 5 Y Y QUANTITAT [facility] [place] HEPATITIS [address]4433 [facility] C 5 Y Y ANTIBODY [facility] CREATINE 87[address] [facility] KINASE 5 Y Y TOTAL HOSPITAL HOSPITAL RADIOLOGI 16092 [facility] C 5 MEDICAL BORA EXAMINATI IMAGING ON PELVIS ASS 1/2 VIEWS MRI ANY 25566 [facility] JT UPPER 5 [place] EXTREMITY ORTHOPAED W/O [facility] CONTRAST MATRL RADEX 94113 [facility] WRIST 2 5 [place] VIEWS ORTHOPAED [facility] WRIST L3908 [facility] HAND 5 [facility] ORTHOSIS ORTHOPAED ORTHOPAED EXT IC IC CONTROL COCK-UP PREFAB RHEUMATOI 68295 JOHNNY Edwards FACTOR 5 [facility] QUANTITAT INC INC [place] SEDIMENTA 66435 J[facility]Y TURNER TION RATE 5 [facility] RBC INC INC NON-AUTOM ATED BLOOD 25100 [facility] TURNER COUNT 5 [facility] COMPLETE INC INC AUTO&[place] [address] [facility] TURNER BLOOD/URI 5 [facility] C ACID INC INC ANTINUCLE 98670 [facility] TURNER AR 5 [facility] ANTIBODIE INC INC S [place] RADEX 73377 [facility] SPINE 4 C [facility] LUMBOSACR CONSULTAN AL 2/3 TS VIEWS RADEX HIP 41788 [facility] 4 C VANESA UNILATERA CONSULTAN L TS COMPLETE MINIMUM 2 VIEWS LOCM Q9967 [facility] TURNER 300-399 4 [facility] MG/ML INC INC [place] [address] J[facility] TURNER UREA 4 [facility] [place] [address] J[facility]NNY TURNER ABDOMEN & 4 [facility] PELVIS INC INC W/CONTRAS T MATERIAL CREATININ 06794 [facility]Y TURNER E BLOOD 4 [facility] INC INC FLUORESCE 79819 [facility] TURNER NT 4 [facility] NONNFCT INC INC AGT ANTB TITER EA ANTIBODY COMPREHEN 30859 J[facility] TURNER SIVE 4 [facility] METABOLIC INC INC PANEL BLOOD 86528 J[facility] CASSIDY COUNT 4 MEM [facility] CHR COMPLETE INC AUTO&AUTO DIFRNTL WBC PROTHROMB 16810 J[facility]Y TURNER IN TIME 4 [facility] INC INC RADEX 43928 SEBASTIAN SEBASTIAN WRIST 4 ANTHONY ANTHONY COMPLETE MINIMUM 3 VIEWS RADEX 16895 SEBASTIAN SEBASTIAN HAND 4 ANTHONY ANTHONY MINIMUM 3 VIEWS RADEX 71351 [facility] TURNER HAND 4 [facility] MINIMUM 3 INC INC VIEWS RADEX 69021 J[facility] TURNER WRIST 4 [facility] COMPLETE INC INC MINIMUM 3 VIEWS RADEX 06228 J[facility]NNY TURNER FOREARM 2 4 [facility] VIEWS INC INC RADIOLOGI 44564 [facility] TURNER C 4 [facility] EXAMINATI INC INC ON KNEE 1/2 VIEWS BLOOD 01037 [facility] TURNER COUNT 3 [facility] COMPLETE INC INC AUTO&AUTO DIFRNTL WBC COMPREHEN 95457 J[facility]NNY TURNER SIVE 3 [facility] METABOLIC INC INC PANEL RADEX 61253 ALEKS FINK WRIST 2 DON DON COMPLETE MINIMUM 3 VIEWS COMPREHEN 03056 J[facility] TURNER SIVE 2 [facility] METABOLIC INC INC PANEL FLUORESCE 47298 J[facility] TURNER NT 2 [facility] NONNFCT INC INC [place] [address] PATHOLOGY DOROTHY SURG 2 & KIM PATHOLOGY CYTOLOGY LAB GROSS&RICARDO ROSCOPIC EXAM SPCL STN 06510 PATHOLOGY DOROTHY 2 I&R 2 & KIM EXCPT CYTOLOGY MICROORG/ LAB ENZYME/IM CYT COMPREHEN 25378 JOHNNY TURNER SIVE 2 [facility] [place] [address] JOHNNY JOHNNY THYROID 2 [facility] STIMULATI INC INC NG HORMONE TSH COMPREHEN 59638 J[facility] TURNER SIVE 1 [facility] METABOLIC INC INC PANEL BLOOD 16374 J[facility]NNY TURNER COUNT 1 [facility] COMPLETE INC INC AUTO&[place] [address] [facility] MEDICAL ANTHONY REAL IMAGING TIME ASS W/[place] [address] JOHNNY TURNER THYROID 1 [facility] STIMULATI INC INC NG HORMONE TSH ANTINUCLE 46609 J[facility] TURNER AR 1 [facility] ANTIBODIE INC INC S [place] MICROSOMA 53603 J[facility]Y TURNER L 1 [facility] ANTIBODIE INC INC S EACH HEPATITIS 46523 JOHNNY TURNER B CORE 1 [facility] ANTIBODY INC INC HBCAB TOTAL HEPATITIS 08605 J[facility]NNY Fuller SURF 1 [facility] [place] [address] J[facility]NNY TURNER HEPATITIS 1 [facility] B INC INC SURFACE ANTIGEN FLUORESCE 94634 J[facility] TURNER NT 1 [facility] NONNFCT INC INC AGT ANTB TITER EA ANTIBODY HEPATITIS 32966 [facility] TURNER C 1 [facility] ANTIBODY INC INC CERULOPLA 41944 J[facility]Y [facility]URNER SMIN 1 [place] [address] J[facility]Y TURNER GAMMAGLOB 1 [facility] [place] [address] J[facility]Y [facility]URNER IRON 1 [place] [address] J[facility]NNY TURNER FERRITIN 1 [facility] INC INC ALPHA-1-A 19493 J[facility]Y TURNER NTITRYPSI 1 [facility] N TOTAL INC INC ALPHA-1-A 24442 J[facility]NNY TURNER NTITRYPSI 1 [facility] [place] [address] J[facility]NNY TURNER GAMMAGLOB 1 [facility] ULIN IGA INC INC IGD IGG IGM EACH IRON 42067 J[facility] TURNER BINDING 1 [facility] CAPACITY INC INC ESOPHAGOG 4516 [facility] TURNER ASTRODUOD 1 [facility] ENOSCOPY INC INC WITH CLOSED BIOPSY EGD 75855 J[facility] TURNER TRANSORAL 1 [facility] BIOPSY INC INC SINGLE/[place] [address] J[facility]NNY TURNER INFUSION 1 [facility] THERAPY INC INC PROPHYLAX IS/DX EA HOUR SPECIAL 28829 [facility] STAIN 1 [facility]GELIA [facility] OUSMANE GROUP 1 DUBILIER MICROORGA NISMS I&R SPCL STN 39281 [facility] 2 I&R 1 [facility] OUS[facility] EXCPT DUBILIER MICROORG/ ENZYME/IM CYT ANES 55514 [facility] UPPER GI 1 ANESTH ENDOSCOPY OF THE [place] [address] [facility] SURG 1 ANGELIA & OUSMANE PATHOLOGY DUBILIER GROSS&RICARDO ROSCOPIC EXAM COMPREHEN 62097 [facility] TURNER SIVE 1 [facility] [address] JOHNNY JOHNNY THYROID 1 [facility] STIMULATI INC INC NG HORMONE TSH BLOOD 47343 J[facility]Y TURNER COUNT 1 [facility] COMPLETE INC INC AUTO&[place] [address] JOHNNY JOHNNY LIPASE 1 [place] [address] JOHNNY JOHNNY AMYLASE 1 [facility] INC INC CREATINE 01776 JOHNNY JOHNNY KINASE MB 1 [facility] FRACTION INC INC ONLY CREATINE 20889 JOHNNY JOHNNY KINASE 1 [facility] TOTAL INC INC ECG 94474 JOHNNY DELIO DWI ROUTINE 1 [facility] W/LEAST P 12 LDS I&[place] [address] J[facility]NNY TURNER TROPONIN 1 [facility]OS[facility] QUANTITAT INC INC [place] BLOOD 70982 J[facility]NNY TURNER COUNT 1 [facility] COMPLETE INC INC AUTO&AUTO DIFRNTL WBC BASIC 76169 JOHNNY JOHNNY METABOLIC 1 [facility] PANEL INC INC CALCIUM TOTAL RADIOLOGI 55580 [place] MARIELLA Walsh 1 MEDICAL JACEK EXAMINATI IMAGING ON CHEST ASS SINGLE VIEW FRONTAL ECG 87262 JOHNNY TURNER ROUTINE 1 [facility] HOS[facility] ECG INC INC W/LEAST 12 LDS TRCG ONLY W/O I&R Encounters Encounter Start End Date Code Location Performer Type Date [facility] JOHNNY - 7 7 [facility] OUTPATIEN INC HOSPITAL JOHNNY - 7 7 [facility] OUTPATIEN INC T HOSPITAL KAREN Diaz 7 7 N OUTPATIEN COMMUNTIY T HOSPITA EMERGENCY 08819 JOHNNY 7 7 [facility] DEPARTMEN INC T VISIT MODERATE SEVERITY EMERGENCY 85790 FABIAN MUKHERJEE 7 7 PHYSICIAN JR GARCIA S [facility] T VISIT HIGH/URGE NT SEVERITY HOSPITAL JOHNNY - 7 7 [facility]IEN [facility] HOSPITAL JOHNNY - 7 7 [facility] OUTPATIEN [facility] OFFICE 22664 [place] [facility] OUT[facility] 7 7 [place] T VISIT ORTHOPAED 15 IC MINUTES OFFICE 61376 [facility] COMFORT OUTPATIEN 7 7 PHYSICIAN T VISIT S GROUP 15 MINUTES HOSPITAL JOHNNY - 7 7 [facility] OUTPATIEN [facility] JOHNNY - 6 6 [facility]IEN [facility] JOHNNY - 6 6 [facility]IEN [facility] JOHNNY - 6 6 [facility] JOHNNY - 6 6 [facility] OUTPATIEN [facility] JOHNNY - 6 6 [facility] 6 6 N OUTPATIEN [facility] JOHNNY - 6 6 [facility] OUTPATIEN [facility] OFFICE 76317 [facility] CRISOSTOMO OUTPATIEN 6 6 T VISIT ORTHOPAED 15 ICS PSC MINUTES OFFICE 40676 [facility] COMFORT OUTPATIEN 6 6 PHYSICIAN RICARDO T VISIT S GROUP 15 MINUTES HOSPITAL JOHNNY - 6 6 [facility] OUTPATIEN [facility] HOSPITAL JOHNNY - 6 6 [facility] OUTPATIEN [facility] OFFICE 23819 [facility] COMFORT OUTPATIEN 6 6 PHYSICIAN RICARDO T VISIT S GROUP 10 MINUTES OFFICE 27818 [facility] OUTPATIEN 6 6 T VISIT ORTHOPAED 15 ICS PSC MINUTES OFFICE 45979 [facility] OUTPATIEN 6 6 T VISIT ORTHOPAED 15 ICS PSC MINUTES OFFICE 86280 [facility] COMFORT OUTPATIEN 6 6 PHYSICIAN RICARDO T VISIT S GROUP 15 MINUTES EMERGENCY 13352 FABIAN MUKHERJEE, 6 6 PHYSICIAN JR MATTI GARCIA S PLLC T VISIT MODERATE SEVERITY OFFICE 27113 [facility] OUTPATIEN 6 6 C VANESA T VISIT CONSULTAN 15 TS MINUTES HOSPITAL J[facility]Y - 6 6 [facility] OUTPATIEN INC T OFFICE 37099 [facility] OUTPATIEN 6 6 C VANESA T VISIT CONSULTAN 15 TS MINUTES OFFICE 44360 [facility] FRYMAN OUTPATIEN 6 6 PHYSICIAN EUG T VISIT S GROUP 15 MINUTES HOSPITAL JOHNNY - 6 6 [facility] OUTPATIEN [facility] HOSPITAL [place] - 5 5 N OUTPATIEN COMMUNTIY T HOSPITA OFFICE 54638 [facility] COM[facility]ORT OUTPATIEN 5 5 PHYSICIAN RICARDO T VISIT S GROUP 10 MINUTES HOSPITAL JOHNNY - 5 5 [facility] OUTPATIEN [facility] T OFFICE 63255 [facility] [place]PATIEN 5 5 [place] T VISIT ORTHOPAED 15 ICS PLC MINUTES HOSPITAL JOHNNY - 5 5 [facility] OUTPATIEN [facility] T OFFICE 16553 [facility] TRA OUTPATIEN 5 5 [place] T VISIT ORTHOPAED 15 ICS PLC MINUTES HOSPITAL JOHNNY - 5 5 [facility] OUTPATIEN [facility] HOSPITAL [place] - 5 5 N OUTPATIEN COMMUNTIY T HOSPITA OFFICE 34566 [facility] TRA OUTPATIEN 5 5 [place] T VISIT ORTHOPAED 15 ICS PLC MINUTES [facility]OSP[facility] 18059 FABIAN STALLINGS 5 5 PHYSICIAN Junior GARCIA S, PLLC T VISIT HIGH/URGE NT SEVERITY OFFICE 34550 [facility] OUTPATIEN 5 5 C VANESA T VISIT CONSULTAN 15 TS MINUTES OFFICE 15430 [facility] TRA CONSULTAT 5 5 [place] ION ORTHOPAED NEW/ESTAB ICS PLC PATIENT 60 MIN OFFICE 83765 [facility] COM[facility]ORT OUTPATIEN 5 5 PHYSICIAN RICARDO T VISIT S GROUP 15 MINUTES HOSPITAL JOHNNY - 5 5 [facility] OUTPATIEN INC T OFFICE 52228 [facility] COMFORT OUTPATIEN 4 4 PHYSICIAN RICARDO T VISIT S GROUP 10 MINUTES OFFICE 40379 [facility] OUTPATIEN 4 4 C VANESA T NEW 30 CONSULTAN MINUTES TS OFFICE 96226 [facility] ALLRAN JR OUTPATIEN 4 4 PHYSICIAN MACARIO T VISIT S GROUP 15 MINUTES HOSPITAL JOHNNY - 4 4 [facility] OUTPATIEN INC T OFFICE 52844 ALLRAN JR ALLRAN JR CONSULTAT 4 4 MACARIO MACARIO ION NEW/ESTAB PATIENT 60 MIN HOSPITAL JOHNNY - 4 4 [facility] OUTPATIEN INC T OFFICE 78956 MEADE LOR[facility] MEADE [facility]ORA OUTPATIEN 4 4 T VISIT 25 MINUTES OFFICE 99988 [facility] COMFORT OUTPATIEN 4 4 PHYSICIAN RICARDO T VISIT S GROUP 10 MINUTES HOSPITAL JOHNNY - 4 4 [facility] OUTPATIEN INC T OFFICE 31504 [facility] COMFORT OUTPATIEN 4 4 RICARDO RICARDO T VISIT 10 MINUTES HOSPITAL JOHNNY - 4 4 [facility] OUTPATIEN INC T OFFICE 39563 PETTEY PETTEY OUTPATIEN 4 4 JAM JAM T NEW 45 MINUTES HOSPITAL JOHNNY - 3 3 [facility] OUTPATIEN INC T OFFICE 47285 MEADE LORA [facility]ADE [facility]A OUTPATIEN 3 3 T VISIT 25 MINUTES OFFICE 92741 ALEKS FINK OUTPATIEN 2 2 DON DON T VISIT 15 MINUTES OFFICE 00043 MEADE LORA MEADE LORA OUTPATIEN 2 2 T VISIT 15 MINUTES OFFICE 51752 ALEKS FINK OUTPATIEN 2 2 DON DON T VISIT 25 MINUTES HOSPITAL JOHNNY - 2 2 [facility] OUTPATIEN [facility] OFFICE 67976 MEADE LORA MEADE [facility]ORA OUTPATIEN 2 2 T VISIT 15 MINUTES OFFICE 49913 [place] OUTPATIEN 2 2 MEDICAL T VISIT SERV 25 FOUNDATIO MINUTES [facility] JOHNNY - 2 2 [facility] OUTPATIEN [facility] HOSPITAL JOHNNY - 1 1 [facility] OUTPATIEN [facility] OFFICE 73970 SHIVAM MEADE [facility]ORA OUTPATIEN 1 1 MEDICAL T VISIT SERV 25 FOUNDATIO MINUTES HOSPITAL JOHNNY - 1 1 [facility] OUTPATIEN [facility] OFFICE 69015 SHIVAM MEADE [place]ORA OUTPATIEN 1 1 MEDICAL T VISIT SERV 40 FOUNDATIO MINUTES [facility] JOHNNY - 1 1 [facility] OUTPATIEN [facility] JOHNNY - 1 1 [facility] OUTPATIEN [facility] OFFICE 47714 SHIVAM MEADE LORA CONSULTAT 1 1 MEDICAL ION SERV NEW/ESTAB FOUNDATIO PATIENT 60 MIN OFFICE 86652 [facility] OUTPATIEN 1 1 DON DON T VISIT 15 MINUTES OFFICE 55494 [facility] OUTPATIEN 1 1 DON DON T VISIT 15 MINUTES EMERGENCY 99197 DOROTHY MOYER DEPT 1 1 EMERGENCY RICARDO VISIT SERVICES HIGH SEVERITY& THREAT [facility] JOHNNY - 1 1 [facility] OUTPATIEN INC T EMERGENCY 20952 JOHNNY 1 1 [facility] DEPARTMEN INC T VISIT HIGH/URGE NT SEVERITY
--- OUTSIDE RECORDS SUMMARY | 2016-12-14 13:30 | External Medical Summary Rpt ---
Author Author [employer] Barrett, [employer] Organization [employer] Address Unknown Phone Unavailable
--- OUTSIDE RECORDS SUMMARY | 2016-12-14 13:30 | External Medical Summary Rpt ---
Demographics Preferred Language Cook Islander Marital Status Unknown Temple Affiliation Unknown Race Unknown Ethnic Group Unknown Author Author , Organization [employer] Address Unknown Phone Unavailable Purpose Continuity of Care Document - through 2016 Immunization No patient found.
--- OUTSIDE RECORDS SUMMARY | 2016-12-14 13:30 | External Medical Summary Rpt ---
Demographics Preferred Language [place] Citizen Marital Status Unknown Druze Affiliation Unknown Race Unknown Ethnic Group Unknown Author Author , Organization [employer] Address Unknown Phone Unavailable Purpose Continuity of Care Document - through 2016 Immunization No patient found.
--- NOTE | 2016-12-14 13:37 | Emergency Room Report ---
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 N Clinical Suspician of Infection? N Mental Status: 1 - Regular (Normal Baseline) Sepsis Risk:Possible Sepsis Risk Have you (or family members/close friends) recently traveled outside the [place]? N If Yes, where/when: Have you had exposure to infectious disease within the past month? N TB? Other? Specify: Source patient, RN notes reviewed, family, RN/MD Exam Limitations no limitations Comment This is a 56-year-old female sent to the emergency room from Dr. Baig 's office with anxiety, palpitations and pleuritic type chest pain. Patient stated that she ran out of her Valium approximate 4-5 years ago and she forgot to reschedule her refill appointment with Dr. Baig's office. Boyfriend, hereby present in the room, advised that she has had similar episodes in the past, when out of her benzodiazepines. ALLERGIES Coded Allergies: No Known Allergies (11/23/15) Home Medications Active Scripts Cyclobenzaprine Hcl (Flexeril) 5 MG PO BID #60 TAB Prov: 09/06/16 Reported Medications ASPIRIN (Aspirin) 81 MG PO DAILY Diazepam (Valium 5MG) 5 MG PO QID Omeprazole (Prilosec 40mg Cap) 40 MG PO DAILY Escitalopram Oxalate 10 MG PO DAILY #30 Gabapentin (Gabapentin 800MG) 800 MG PO TID OXYCODONE HCL/ACETAMINOPHEN (Oxycodon-Acetaminophen 7.5-325) 1 TAB PO TID History Medical History General CAD? No Angina: Yes MS: No Hypertension? No Hyperlipidemia? No CHF? No DVT? No PE? No COPD? No Asthma? No Anemia? No GERD? Yes Gastric ulcers? No GI Bleed? No Hernia? No Thyroid Problems? No Hypothyroidism? No CVA? No Seizures? No Diabetes? No Insulin Dependent: No Insulin Pump: No Home FSBS? No Renal Insuffiency? No End Stage Renal Disease? No UTI? No Stones? No BPH? No GB Disease: No Nephritic Syndrome? No Asplenia? No Hepatitis? No Sickle Cell Disease? No Arthritis? Yes Migraines? No Cataracts? No Glaucoma? No MRSA? No HIV? No TB? No Anxiety? Yes Depression? Yes Cancer? No More? 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 Hx LMP N/A Family History Family Hx Diabetes Yes CAD Yes Hypertension Yes Hyperlipidemia Yes Cancer Yes TB No Social History Smoking Hx Smoker: Current Every Day Smoker Tobacco: Yes Type Cigarettes Packs/day < 1 Pack Alcohol Alcohol: No Review of Systems All Other Systems Reviewed and Negative Cardiovascular chest pain, palpitations Psychiatric/Neurological anxiety Physical Exam Vital Signs Vital Signs Date Time Temp Pulse Resp B/P Pulse O2 O2 Flow FiO2 Ox Delivery Rate 12/14 1506 68 20 140/70 98 12/14 1423 68 20 152/83 98 12/14 1421 20 12/14 1323 98.5 98 20 147/101 99 General Appearance normal appearance, WD/WN, no apparent distress, anxious Neck normal inspection, non-tender, supple, full range of motion Respiratory Status Yes: trachea midline, chest symmetrical, non tender chest. No: respiratory distress. Lung Sounds bilateral: normal breath sounds, lungs clear. 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 No Comment Upon reevaluation patient appears medically stable, in no acute distress. Advised patient results obtained, need to follow-up with Dr. Baig in the morning in order to to obtain her refills (Valium). Results/Orders Laboratory Tests 12/14/16 1340: Lactic Acid 0.8 12/14/16 1340: Sodium 137, Potassium 3.8, Chloride 101, Carbon Dioxide 25, BUN 6 L, Creatinine 0.6, Estimated Creat Clear 113, Estimated GFR (MDRD) 103, Glucose 102, Calcium 9.2, Total Bilirubin 0.3, AST 13 L, ALT 20, Alkaline Phosphatase 111, Creatine Kinase 64, CK-MB (CK-2) Rel Index 0.8, CK and CKMB Interp < 0.5, Troponin I < 0.02, Total Protein 8.8 H, Albumin 4.7, Globulin 4.1 H, Albumin/Globulin Ratio 1.1, WBC 10.0, RBC 5.02, Hgb 14.6, Hct 44.0, MCV 87.6, RDW 12.7, Plt Count 425 H, MPV 5.8 L, Gran % 73.2, Gran # 7.3, Lymphocytes % 21.2, Monocytes % 3.8, Eosinophils % 1.1, Basophils % 0.7, Lymphocytes # 2.1, Monocytes # 0.4, Eosinophils # 0.1, Basophils # 0.1, PUBS MCHC 33.2, MCH 29.1 Current Medication Orders Sig/Bro Start time Last Medication Dose Route Stop Time Status Admin Diazepam 0 .STK-MED ONE 12/14 141 DC .ROUTE Diazepam 2.5 MG ONCE ONE 12/14 1415 DC 12/14 IV 12/14 1416 1421 Sodium Chloride 10 ML PRN PRN 12/14 134 DCD IV 12/15 1331 Orders Procedure Date/time Status ELECTROCARDIOGRAM REQUEST 12/14 1330 Active CHEST(2 VIEWS-NOT PORTABLE) 12/14 1331 Active IV SALINE LOCK 12/14 133 Active CULTURE, BLOOD 12/14 133 Active URINALYSIS/COMPLETE 12/14 1330 Active LACTIC ACID 12/14 133 Complete CBC WITH AUTO DIFF 12/14 133 Complete CARDIAC ENZYMES 12/14 1330 Complete CHEM 12 PROFILE 12/14 1330 Complete 12 LEAD EKG-DELIO (INITIAL) 12/14 133 Active CM/EKG CM/discovery manager Rhythm Normal Sinus Rhythm Rate 85 Ectopy No Comments No acute ischemic changes EKG rate, NSR, rhythm, no evid. of ischemic chgs, no ectopy, normal QRS, normal OK, normal EKG, no EKG for comparison, non-spec. ST/Twave chgs, ST elevation, ST depression, LBBB, RBBB, ectopy, abnormal Q waves XRAY/CT/US XRAY/CT/US XRAY chest XR interpretation by reviewed by me, discussed w/radiologist Xray Results no infiltrates, normal heart size, normal lung inflation magdalena Departure Departure Time of Disposition 1459 Disposition DC Home or Self Care(routine) Clinical Impression Primary Impression: Palpitations Secondary Impressions: Anxiety, Paresthesia Condition STABLE Referrals Tesha CARABALLO,Jorden Wiley (Family): [facility] Patient Instructions DI for Anxiety -- Adult, DI for Palpitations Additional Instructions Please follow-up with Dr. Saurabh Parkinson within 24 hours. Discharge Counseling Counseled pt/family regarding diagnosis, test results, medications/RX, home care, follow up needs Comment Please follow-up with Dr. Saurabh Parkinson within 24 hours. ED Critical Care Critical Care No at 1910
--- NOTE | 2016-12-14 13:37 | Emergency Room Report ---
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 N Clinical Suspician of Infection? N Mental Status: 1 - Regular (Normal Baseline) Sepsis Risk:Possible Sepsis Risk Have you (or family members/close friends) recently traveled outside the [place]? N If Yes, where/when: Have you had exposure to infectious disease within the past month? N TB? Other? Specify: Source patient, RN notes reviewed, family, RN/MD Exam Limitations no limitations Comment This is a 56-year-old female sent to the emergency room from Dr. Baig 's office with anxiety, palpitations and pleuritic type chest pain. Patient stated that she ran out of her Valium approximate 4-5 years ago and she forgot to reschedule her refill appointment with Dr. Baig's office. Boyfriend, hereby present in the room, advised that she has had similar episodes in the past, when out of her benzodiazepines. ALLERGIES Coded Allergies: No Known Allergies (11/23/15) Home Medications Active Scripts Cyclobenzaprine Hcl (Flexeril) 5 MG PO BID #60 TAB Prov: 09/06/16 Reported Medications ASPIRIN (Aspirin) 81 MG PO DAILY Diazepam (Valium 5MG) 5 MG PO QID Omeprazole (Prilosec 40mg Cap) 40 MG PO DAILY Escitalopram Oxalate 10 MG PO DAILY #30 Gabapentin (Gabapentin 800MG) 800 MG PO TID OXYCODONE HCL/ACETAMINOPHEN (Oxycodon-Acetaminophen 7.5-325) 1 TAB PO TID History Medical History General CAD? No Angina: Yes [place]: No Hypertension? No Hyperlipidemia? No CHF? No DVT? No PE? No COPD? No Asthma? No Anemia? No GERD? Yes Gastric ulcers? No GI Bleed? No Hernia? No Thyroid Problems? No Hypothyroidism? No CVA? No Seizures? No Diabetes? No Insulin Dependent: No Insulin Pump: No Home FSBS? No Renal Insuffiency? No End Stage Renal Disease? No UTI? No Stones? No BPH? No GB Disease: No Nephritic Syndrome? No Asplenia? No Hepatitis? No Sickle Cell Disease? No Arthritis? Yes Migraines? No Cataracts? No Glaucoma? No MRSA? No HIV? No TB? No Anxiety? Yes Depression? Yes Cancer? No More? 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 N/A Family History Family Hx Diabetes Yes CAD Yes Hypertension Yes Hyperlipidemia Yes Cancer Yes TB No Social History Smoking Hx Smoker: Current Every Day Smoker Tobacco: Yes Type Cigarettes Packs/day < 1 Pack Alcohol Alcohol: No Review of Systems All Other Systems Reviewed and Negative Cardiovascular chest pain, palpitations Psychiatric/Neurological anxiety Physical Exam Vital Signs Vital Signs Date Time Temp Pulse Resp B/P Pulse O2 O2 Flow FiO2 Ox Delivery Rate 12/14 1506 68 20 140/70 98 12/14 1423 68 20 152/83 98 12/14 1421 20 12/14 1323 98.5 98 20 147/101 99 General Appearance normal appearance, WD/WN, no apparent distress, anxious Neck normal inspection, non-tender, supple, full range of motion Respiratory Status Yes: trachea midline, chest symmetrical, non tender chest. No: respiratory distress. Lung Sounds bilateral: normal breath sounds, lungs clear. 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 No Comment Upon reevaluation patient appears medically stable, in no acute distress. Advised patient results obtained, need to follow-up with Dr. Baig in the morning in order to to obtain her refills (Valium). Results/Orders Laboratory Tests 12/14/16 1340: Lactic Acid 0.8 12/14/16 1340: Sodium 137, Potassium 3.8, Chloride 101, Carbon Dioxide 25, BUN 6 L, Creatinine 0.6, Estimated Creat Clear 113, Estimated GFR (MDRD) 103, Glucose 102, Calcium 9.2, Total Bilirubin 0.3, AST 13 L, ALT 20, Alkaline Phosphatase 111, Creatine Kinase 64, CK-MB (CK-2) Rel Index 0.8, CK and CKMB Interp < 0.5, Troponin I < 0.02, Total Protein 8.8 H, Albumin 4.7, Globulin 4.1 H, Albumin/Globulin Ratio 1.1, WBC 10.0, RBC 5.02, Hgb 14.6, Hct 44.0, MCV 87.6, RDW 12.7, Plt Count 425 H, MPV 5.8 L, Gran % 73.2, Gran # 7.3, Lymphocytes % 21.2, Monocytes % 3.8, Eosinophils % 1.1, Basophils % 0.7, Lymphocytes # 2.1, Monocytes # 0.4, Eosinophils # 0.1, Basophils # 0.1, PUBS MCHC 33.2, MCH 29.1 Current Medication Orders Sig/Bro Start time Last Medication Dose Route Stop Time Status Admin Diazepam 0 .STK-MED ONE 12/14 141 DC .ROUTE Diazepam 2.5 MG ONCE ONE 12/14 1415 DC 12/14 IV 12/14 1416 1421 Sodium Chloride 10 ML PRN PRN 12/14 134 DCD IV 12/15 1331 Orders Procedure Date/time Status ELECTROCARDIOGRAM REQUEST 12/14 1330 Active CHEST(2 VIEWS-NOT PORTABLE) 12/14 1331 Active IV SALINE LOCK 12/14 133 Active CULTURE, BLOOD 12/14 133 Active URINALYSIS/COMPLETE 12/14 1330 Active LACTIC ACID 12/14 133 Complete CBC WITH AUTO DIFF 12/14 133 Complete CARDIAC ENZYMES 12/14 1330 Complete CHEM 12 PROFILE 12/14 1330 Complete 12 LEAD EKG-DELIO (INITIAL) 12/14 133 Active 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 of ischemic chgs, no ectopy, normal QRS, normal OR, normal EKG, no EKG for comparison, non-spec. ST/Twave chgs, ST elevation, ST depression, LBBB, RBBB, ectopy, abnormal Q waves XRAY/CT/US XRAY/CT/US XRAY chest XR interpretation by reviewed by me, discussed w/radiologist Xray Results no infiltrates, normal heart size, normal lung inflation magdalena Departure Departure Time of Disposition 1459 Disposition DC Home or Self Care(routine) Clinical Impression Primary Impression: Palpitations Secondary Impressions: Anxiety, Paresthesia Condition STABLE Referrals Tesha CARABALLO,Jorden Wiley (Family): [facility] Patient Instructions DI for Anxiety -- Adult, DI for Palpitations Additional Instructions Please follow-up with Dr. Saurabh Parkinson within 24 hours. Discharge Counseling Counseled pt/family regarding diagnosis, test results, medications/RX, home care, follow up needs Comment Please follow-up with Dr. Saurabh Parkinson within 24 hours. ED Critical Care Critical Care No at [id number]
[2016-12-14 13:55] LABS: HEMOGLOBIN 14.6 g/dL (12.2-16.2); LYMPH # 2.1 K/mm3 (0.7-4.5); LYMPH % 21.2 % (10-50.0)
[2016-12-14 14:16] LABS: BUN 6 mg/dL (7-18)
[2016-12-14 14:17] LABS: GFR (ESTIMATED) 103 ML/MIN (59-)
[2016-12-14 15:06] VITALS: BP 140/70
--- NOTE | 2016-12-15 15:42 | RADIOLOGY REPORT PS360 ---
CHEST(2 VIEWS-NOT PORTABLE) Ordering Physician: Reginaldo Dotson MD Patient Age: 56 years: Female HISTORY: AMS/CHEST PAIN TECHNIQUE: PA and lateral chest COMPARISON to 317 CXR and 03/20/2016 CXR FINDINGS no significant interval change. Mild interstitial coarsening bilaterally stable since prior study. No focal pneumonia nor infiltrate Heart is normal in size. Slight coarsening of markings right perihilar region similar to prior study. Jing and mediastinal structures otherwise unremarkable. Chest wall intact. T-spine. Demineralization with old compression fracture wedging at mid thoracic vertebral bodies unchanged since last year IMPRESSION: Stable chest with nothing definitely acute. Mild chronic interstitial changes Old compression fractures mid T-spine again noted
== END 2016-12-14 15:07 | disposition home or self-care (01) ==
LOC: UTC 13:09 → ER 13:14 → UTC 13:14 → ER 15:07
PROVIDERS: Emergency Medicine
DX: R00.2 Palpitations (principal); R20.2 Paresthesia of skin; F41.8 Other specified anxiety disorders; K21.9 Gastro-esophageal reflux disease without esophagitis

== ENCOUNTER → 2017-04-23 | Outpatient (CLI) | payer MEDICAID ==
[2017-04-23 19:03] LABS: AMPHETAMINES/METAMPHETAMINES NEGATIVE ng/mL (<1000)
[2017-05-03 05:37] LABS: Alprazolam Negative (Cutoff=100); Benzodiazepines Positive ng/mL (Cutoff=100); Clonazepam Negative (Cutoff=100); Flurazepam Negative (Cutoff=100); Lorazepam Negative (Cutoff=100); Midazolam Negative (Cutoff=100); Opiates Negative (Cutoff=100); Temazepam Positive (.); Triazolam Negative (Cutoff=100)
== END ==
LOC: LAB 16:22
PROVIDERS: Emergency Medicine
DX: Z79.899 Other long term (current) drug therapy (principal)
CPT/HCPCS: G0480

== ENCOUNTER → 2017-05-14 | Outpatient (CLI) | payer MEDICAID ==
[2017-05-14 18:51] LABS: AMPHETAMINES/METAMPHETAMINES NEGATIVE ng/mL (<1000)
[2017-05-23 16:36] LABS: Opiates Negative (Cutoff=100)
== END ==
LOC: LAB 16:39
PROVIDERS: Emergency Medicine
DX: Z79.899 Other long term (current) drug therapy (principal)

== ENCOUNTER → 2017-06-11 | Outpatient (CLI) | payer MEDICAID ==
[2017-06-11 16:34] LABS: AMPHETAMINES/METAMPHETAMINES NEGATIVE ng/mL (<1000)
== END ==
LOC: LAB 15:30
PROVIDERS: Emergency Medicine
DX: Z79.899 Other long term (current) drug therapy (principal)

== ENCOUNTER → 2017-07-09 | Outpatient (CLI) | payer MEDICAID ==
[2017-07-09 16:43] LABS: AMPHETAMINES/METAMPHETAMINES NEGATIVE ng/mL (<1000)
== END ==
LOC: LAB 16:17
PROVIDERS: Emergency Medicine
DX: Z79.899 Other long term (current) drug therapy (principal)